=== PATIENT | female | born 1960 | race Two or more races ===

== ENCOUNTER 2020-08-24 07:18 | Emergency (ER) | payer OTHER, SELFPAY ==
[2020-08-24 07:25] VITALS: BP 161/81; PULSE 80; RESP 16; TEMP 36.8; O2SAT 99; BMI 31.8
--- NOTE | 2020-08-24 07:44 | XR_ITS ---
EXAMINATION: XR LUMBOSACRAL SPINE CLINICAL INFORMATION: Low back pain. COMPARISON: None TECHNIQUE: Three views of the lumbosacral spine. FINDINGS: There is normal lumbar lordosis. The vertebral heights, alignment and disc heights are normal. No visible acute fracture, dislocation or subluxation seen. No bony erosive changes. The soft tissues are normal. XR/XR lumbar spine 2-3V IMPRESSION: Unremarkable lumbar spine exam.
--- NOTE | 2020-08-24 07:44 | ED.GENADULT ---
HPI - General Adult General Chief complaint: Back Pain/Injury Stated complaint: low back pain Time Seen by Provider: 08/24/20 07:44 Source: patient Mode of arrival: ambulatory Limitations: no limitations History of Present Illness HPI narrative: had URI and headaches a week ago, now c/o low back pain and leg cramps for 2 days no trauma MD complaint: low back pain Onset (ago): day(s) (2) Location: back Radiation: abdomen (at times feels pressure in abdomen) Severity: moderate Quality: aching Pain Consistency: constant Relieving factors: none Exacerbating factors: movement Associated symptoms: denies other symptoms Treatments prior to arrival: none Related Data Previous Rx's Medication Instructions Recorded cyclobenzaprine 10 mg PO TID PRN #14 tab 08/24/20 ibuprofen 400 mg PO TID PRN #30 tab 08/24/20 lidocaine 1 patch TOPICAL DAILY PRN #10 ea 08/24/20 Allergies Allergy/AdvReac Type Severity Reaction Status Date / Time lisinopril Allergy Unknown Unverified 02/29/20 00:00 No Known Allergies Allergy Unverified 07/07/20 17:18 Review of Systems Review of Systems: Constitutional : No Weight loss, No Fever, No Chills, ENT/Mouth : No Hearing loss, No Ear Pain, No Nasal Congestion, No Sinus Pain, No Hoarseness, No sore throat, No Rhinorrhea, No Swallowing Difficulty Cardiovascular : No Chest Pain, No SOB Respiratory : No Cough, No Dyspnea Gastrointestinal : No Nausea, No Vomiting, No Diarrhea, No abdominal Pain, No Hematochezia, No Melena Genitourinary : No Dysuria, No Urinary Frequency, No Hematuria, No Urinary Incontinence, Musculoskeletal : positive back pain Skin : No Skin Lesions, No rash Neuro : No Weakness, No Numbness, No Paresthesias, no loss of bowel or bladder incontinence, no saddle anesthesia [facility] Past Medical History Medical History Corneal transplant infection of left eye HTN (hypertension) Surgical History Previous section Social History Social History (Updated 08/24/20 @ 07:47 by Lucía Mai DO) Alcohol intake: current Alcohol intake frequency: holidays/special occasions only Smoking Status: Never smoker Smoked in Last 30 Days: No Use of substances other than those prescribed or required for medical reasons: No Advance Directives: No Advance Directives Information Provided: Yes Physical Exam Vital Signs: Vital Signs: Vital Signs Temp Pulse Resp BP Pulse Ox 08/24/20 08:19 98.2 F 85 18 133/91 H 98 08/24/20 07:57 98.2 F 85 18 133/91 H 98 08/24/20 07:25 98.2 F 80 16 161/81 H 99 Body Mass Index 32.0 Appearance: Alert. Oriented X3. No acute distress. Eyes: Pupils equal, round and reactive to light. ENT: Pharynx normal. Neck: Normal inspection. Neck supple. CVS: Normal heart rate and rhythm. Pulses normal. Respiratory: No respiratory distress. Breath sounds normal. Abdomen: Soft and nontender. Back: ttp along bilateral sacrum and lower lumbar paraspinals, no rash noted Skin: Skin warm and dry. Normal skin color. Normal skin turgor. Extremities: No lower extremity edema. No calf ttp Neuro: Oriented X 3. No motor deficit. No sensory deficit. Course Course Course Narrative: no acute findings stable for DC Medical Decision Making MDM Narrative Medical decision making narrative: 59 yo female with recent URI and headaches that have resolved now coming in with low back pain and leg cramps, no AC therapy, no IVDA, now with lower back pain as well no trauma, no b/b incontinence, no saddle anesthesia, no CE symptoms, at this time will obtain basic labs, COVID swab, lumbar spine, PO MRs and lidocaine patches Lab Data Result diagrams: 08/24/20 08:14 08/24/20 08:14 Labs: Lab Results 08/24/20 08/24/20 Range/Units 08:14 08:14 Sodium 138 (135-145) mmol/L Potassium 3.7 (3.3-5.1) mmol/l Chloride 102 (96-108) mmol/L Carbon Dioxide 27 (22-29) mmol/L Anion Gap 13 (12-20) BUN 10 (9-16) mg/dL Creatinine 0.80 (0.5-1.4) mg/dL Estim Creat Clear Calc 77.7 Estimated GFR > 60 Random Glucose 114 (60-115) mg/dL Calcium 8.9 (8.4-10.2) mg/dL Magnesium 1.9 (1.6-2.6) mg/dL Urine Color YELLOW Urine Appearance HAZY Urine pH 6.0 (5.0-8.0) Ur Specific [place] 1.020 (1.005-1.025) Urine Protein TRACE (NEG-TRACE) MG/DL Urine Glucose (UA) NEG (NEG) MG/DL Urine Ketones NEG (NEG) MG/DL Urine Blood TRACE (NEG) Urine Nitrite NEG (NEG) Ur Leukocyte Esterase NEG (NEG) Urine RBC 1-4 (0) /HPF Urine WBC 0-2 (0-4) /HPF Ur Squamous Epith Cells 2+ /LPF Urine Bacteria NONE /LPF Urine Mucus 2+ /LPF Discharge Plan Discharge Clinical Impression: Strain of lumbar region Qualifiers: Encounter type: initial encounter Qualified Code(s): S39.012A - Strain of muscle, fascia and tendon of lower back, initial encounter Patient Disposition: Home, Self-Care Instructions: Acute Low Back Pain (ED) Additional Instructions: return to ED for any worsening symptoms or concerns you were tested for COVID we will call you with results in 2 to 4 days, wear a mask, socially distance Prescriptions: New cyclobenzaprine 10 mg tablet 10 mg PO TID PRN (Reason: muscle spasm) Qty: 14 RF: 0 lidocaine 4 % adhesive patch,medicated 1 patch topical DAILY PRN (Reason: pain) Qty: 10 RF: 0 ibuprofen 400 mg tablet 400 mg PO TID PRN (Reason: Pain, Moderate) Qty: 30 RF: 0 Referrals: Po,Cindi Delaney MD [Primary Care Provider] - 2 days (if not better) Stand Alone Forms: Work/School Release
[2020-08-24 07:57] VITALS: BP 133/91; PULSE 85; RESP 18; TEMP 36.8; O2SAT 98; BMI 32.0
[2020-08-24 08:19] VITALS: BP 133/91; PULSE 85; RESP 18; TEMP 36.8; O2SAT 98
--- NOTE | 2020-08-24 08:20 | PC.NURSE ---
PT CURRENTLY IN X RAY
[2020-08-24 08:25] LABS: Glucose Urine UA NEG (NEG); Leukocyte Esterase Urine NEG (NEG); Nitrite Urine NEG (NEG); Urine Blood TRACE (NEG); Urine Ketones NEG (NEG); Urine Protein TRACE MG/DL (NEG-TRACE)
[2020-08-24] MEDS: Cyclobenzaprine HCl 10 MG TABLET PO (08:27)
[2020-08-24] MEDS: Lidocaine 4 % Patch ADH..PATCH 2 PATCH TRANSDERMA (08:27)
[2020-08-24 08:32] LABS: Appearance Urine HAZY; Color Urine YELLOW
[2020-08-24 08:40] LABS: Mucus Urine 2+ /LPF; Squamous Epithelial Cell Urine 2+ /LPF; WBC Urine 0-2 /HPF (0-4)
[2020-08-24 08:44] LABS: Anion Gap 13 (12-20); Blood Urea Nitrogen 10 mg/dL (9-16); Calcium 8.9 mg/dL (8.4-10.2); Carbon Dioxide 27 mmol/L (22-29); Chloride 102 mmol/L (96-108); Creatinine Clr Calc Pharmacy 77.7; Estimated Glomerular Filt Rate > 60; Glucose Random 114 mg/dL (60-115); Magnesium 1.9 mg/dL (1.6-2.6); Potassium 3.7 mmol/l (3.3-5.1); Sodium 138 mmol/L (135-145)
== END 2020-08-24 09:11 | disposition home or self-care (01) ==
PROVIDERS: Emergency Provider Emergency Medicine; PCP Internal Medicine
DX: S39.012A Strain of muscle, fascia and tendon of lower back, initial encounter (principal); G47.62 Sleep related leg cramps; Y99.9 Unspecified external cause status; X58.XXXA Exposure to other specified factors, initial encounter; Y93.9 Activity, unspecified; Y92.9 Unspecified place or not applicable; R51.9 Headache, unspecified; Z20.828 Contact with and (suspected) exposure to other viral communicable diseases; Z79.899 Other long term (current) drug therapy
CPT/HCPCS: 72100; 80048; 81001; 83735; 99284; U0003

== ENCOUNTER 2021-02-21 08:15 | Outpatient (REF) | payer OTHER, SELFPAY | END 2021-02-21 08:16 | disposition home or self-care (01) | LOC: HO.HOSX 08:15 | PROVIDERS: Visit Provider Physician Assistant | DX: Z13.89 Encounter for screening for other disorder (principal) ==

== ENCOUNTER 2021-02-23 15:09 | Outpatient (REF) | payer OTHER, SELFPAY ==
--- NOTE | ~2021-02-23 | MM_ITS ---
EXAMINATION: MM SCREENING DIGITAL BREAST TOMOSYNTHESIS, BILATERAL CLINICAL INFORMATION: Screening. Asymptomatic. The lifetime risk of breast cancer based on the Tyrer-Cuzick Model is 7%. COMPARISON: Mammography: 11/26/2019, 10/17/2018, 09/18/2017, 07/27/2016 TECHNIQUE: Digital breast tomosynthesis is performed in both the craniocaudal and mediolateral oblique views along with computer-aided detection (CAD). Synthesized 2D images are generated from the tomosynthesis. FINDINGS: There are scattered areas of fibroglandular density (ACR BI-RADS breast composition Category b). The right breast is unremarkable. There is no developing density or interval mass or architectural abnormality. Neither breast shows abnormal calcifications. The axilla and skin contours are unremarkable. The left CC view has oval asymmetric density 10 cm from nipple posterior outer quadrant measuring approximately 7 x 4 mm. This may be related to incompletely compressed glandular tissue, summation artifact, or small cyst. Patient will be recalled for additional imaging. MM/MM tomosynthesis screening BI IMPRESSION: 1. Left: Asymmetric density posterior outer quadrant possibly incompletely compressed glandular tissue, summation artifact, or small cyst. 2. Right: No mammographic evidence of malignancy. ASSESSMENT: BI-RADS 0: Incomplete - Need Additional Imaging Evaluation RECOMMENDATION: 1. Additional views of the left breast (3-D spot CC, 3-D rolled CC x2). 2. Targeted ultrasound if warranted after review of the additional views. 3. Radiology department staff will contact the patient for additional imaging. This patient's information was entered into a reminder system with a target due date for their next mammogram.
== END 2021-02-23 15:10 | disposition home or self-care (01) ==
LOC: HO.MAMMO 15:09
PROVIDERS: Visit Provider Internal Medicine
DX: Z12.31 Encounter for screening mammogram for malignant neoplasm of breast (principal)
CPT/HCPCS: 77063; 77067

== ENCOUNTER 2021-02-28 07:42 | Outpatient (REF) | payer OTHER, SELFPAY ==
--- NOTE | ~2021-02-28 | XR_ITS ---
EXAMINATION: XR ANKLE, RIGHT CLINICAL INFORMATION: Right ankle pain. COMPARISON: None TECHNIQUE: AP, lateral, and mortise views of the right ankle. FINDINGS: The bones and soft tissues are normal. No fracture. Alignment is anatomic. Joint spaces are maintained. No joint effusion. XR/XR ankle RT min 3V IMPRESSION: Unremarkable right ankle exam.
== END 2021-02-28 07:43 | disposition home or self-care (01) ==
LOC: HO.HOSX 07:42
PROVIDERS: Visit Provider Physician Assistant
DX: M76.71 Peroneal tendinitis, right leg (principal)
CPT/HCPCS: 73610; 99202

== ENCOUNTER 2021-03-03 11:18 | Outpatient (REF) | payer OTHER, SELFPAY ==
--- NOTE | ~2021-03-03 | MM_ITS ---
EXAMINATION: MM DIAGNOSTIC DIGITAL BREAST TOMOSYNTHESIS, LEFT US BREAST TARGETED, LEFT CLINICAL INFORMATION: Nodule upper outer aspect left breast. COMPARISON: Mammography: 02/23/2021 and studies dating back to 06/24/2012 TECHNIQUE: Digital breast tomosynthesis is performed. 2-D images are generated from the tomosynthesis. The following views are obtained: Spot compression craniocaudal views as well as full-field craniocaudal medial and lateral rolled views. Targeted left breast ultrasound FINDINGS: There are scattered areas of fibroglandular density (ACR BI-RADS breast composition Category b). There is persistence of an approximately 7 x 3 mm circumscribed density about the upper outer aspect of the left breast. Targeted left breast ultrasound was performed. At the 3 o'clock position approximately 9 cm from nipple, there is a well-circumscribed hypoechoic lesion with increased through sound transmission consistent with a cyst. No internal vascularity is seen. The lesion is wider than it is tall. Results are provided to the patient at time of visit by the technologist. MM/MM tomosynthesis added views L IMPRESSION: Circumscribed density about the upper outer aspect of the left breast is seen to represent a cyst. ASSESSMENT: BI-RADS 2: Benign. RECOMMENDATION: Routine annual mammography screening due in 12 months. This patient's information was entered into a reminder system with a target due date for their next mammogram.
--- NOTE | ~2021-03-03 | US_ITS ---
EXAMINATION: US DIAGNOSTIC ULTRASOUND BREAST, LEFT CLINICAL INFORMATION: Density upper outer aspect. COMPARISON: Mammogram of same day and studies dating back to June 24, 2012. TECHNIQUE: Ultrasound of the breast is performed with real-time garcia scale imaging and color Doppler. FINDINGS: Targeted left breast ultrasound was performed. At the 3:00 position approximately 9 cm from nipple there is a well-circumscribed hypoechoic lesion which increased through sound transmission consistent with a cyst. No internal vascularity is seen. The lesion is wider than it is tall. Results are provided to the patient at time of visit by the technologist. US/US breast LT limited IMPRESSION: Circumscribed density about the upper outer aspect of the left breast is seen to represent a cyst. ASSESSMENT: BI-RADS 2: Benign RECOMMENDATION: Routine annual mammography screening due in 12 months.
== END 2021-03-03 11:19 | disposition home or self-care (01) ==
LOC: HO.MAMMO 11:18
PROVIDERS: Visit Provider Internal Medicine
DX: R92.2 Inconclusive mammogram (principal)
CPT/HCPCS: 76642; 77061; 77065

== ENCOUNTER 2021-03-14 07:48 | Outpatient (REF) | payer OTHER, SELFPAY ==
[2021-03-14 08:51] LABS: MANUAL DIFF FLAG NO
[2021-03-14 09:01] LABS: Basophils Percent Auto 0.3 % (0-2); Eosinophils Absolute Auto 0.1 X10*3/uL (0.0-0.4); Imm Gran Abs Auto 0.02 X10*3/uL (0.00-0.03); Imm Gran Pct Auto 0.3 % (0.0-0.4); Lymphocytes Absolute Auto 3.3 X10*3/uL (1.2-4.9); Lymphocytes Percent Auto 48.3 % (20-40); Mean Corpuscular HGB Conc 32.5 g/dl (31.0-35.0); Mean Corpuscular Hemoglobin 25.8 pg (27.0-33.0); Mean Corpuscular Volume 79.5 fL (80-98); Mean Platelet Volume 12.1 fL (9.4-12.3); Monocytes Absolute Auto 0.5 X10*3/uL (0.1-1.2); Monocytes Percent Auto 6.9 % (2-11); Neutrophils Absolute Auto 2.9 X10*3/uL (2.0-8.3); Neutrophils Percent Auto 42.2 % (45-73); Platelet Count 267 X10*3/uL (160-400); Red Blood Count 5.03 X10*6/uL (4.20-5.50); Red Cell Distribution Width 14.6 % (11.0-16.0); White Blood Count 6.9 X10*3/uL (4.8-10.8)
[2021-03-14 09:17] LABS: Alanine Aminotransferase 18 U/L (0-31); Albumin Level 4.1 g/dL (3.5-5.0); Alkaline Phosphatase 86 U/L (39-117); Anion Gap 12 (12-20); Aspartate Amino Transferase 21 U/L (5-31); Bilirubin Total 0.9 mg/dL (0.0-1.0); Blood Urea Nitrogen 14 mg/dL (9-16); Calcium 9.6 mg/dL (8.4-10.2); Carbon Dioxide 27 mmol/L (22-29); Chloride 103 mmol/L (96-108); Cholesterol 247 mg/dL; Estimated Glomerular Filt Rate > 60; Glucose Fasting 105 mg/dL (60-99); HDL Cholesterol 37 mg/dL; LDL Cholesterol Calculated 156 mg/dl; Potassium 4.4 mmol/L (3.3-5.1); Sodium 138 mmol/L (135-145); Total Protein 7.5 g/dL (6.5-8.0); Triglycerides 270 mg/dL
[2021-03-14 09:23] LABS: Free T4 (Free Thyroxine) 1.13 ng/dL (0.71-1.85); Thyroid Stimulating Hormone 1.12 uIU/mL (0.32-4.0); Vitamin D 25-OH Total 21.9 ng/mL (>30)
[2021-03-14 10:17] LABS: Folate 14.4 ng/mL (> or = 4.0); Vitamin B12 458 pg/mL (200-900)
== END 2021-03-14 07:49 | disposition home or self-care (01) ==
LOC: HO.LAB 07:48
PROVIDERS: Nurse Practitioner Family; PCP Internal Medicine; Visit Provider Internal Medicine
DX: E78.00 Pure hypercholesterolemia, unspecified (principal); U07.1 COVID-19
CPT/HCPCS: 36415; 80053; 80061; 82306; 82607; 82746; 84439; 84443; 85025

== ENCOUNTER 2021-05-20 12:01 | Emergency (ER) | payer OTHER, SELFPAY ==
--- NOTE | 2021-05-20 | ECG_ITS ---
Test Reason : CHEST PAIN Blood Pressure : / mmHG Vent. Rate : 088 BPM Atrial Rate : 088 BPM P-R Int : 148 ms QRS Dur : 080 ms QT Int : 382 ms P-R-T Axes : 027 -04 011 degrees QTc Int : 462 ms Sinus rhythm with marked sinus arrhythmia Nonspecific ST and T wave abnormality Borderline ECG When compared with ECG of 15-APR-2017 19:56, No significant change was found Referred By: Lucía Mai Electronically Signed By:NGOZI TEIXEIRA
--- NOTE | ~2021-05-20 | CT_ITS ---
EXAMINATION: CT HEAD WITHOUT CONTRAST CLINICAL INFORMATION: Dizziness. COMPARISON: CT of the head done on 04/15/2017. TECHNIQUE: Contiguous axial imaging was performed from the skull base to vertex without intravenous administration of contrast. This CT examination was performed using dose optimization techniques as appropriate, variously including the following: *Automated exposure control *Adjustment of mA and/or kV according to patient size (this includes techniques or standardized protocols for targeted exams where dose is matched to indication/reason for exam; i.e. extremities or head) *Use of iterative reconstruction technique DLP: 604.9 mGy-cm FINDINGS: There is no evidence of acute intracranial hemorrhage or territorial infarction. No abnormal mass effect or midline shift is seen. Hendricks to white matter differentiation is well preserved. No extra-axial fluid collections are identified. The ventricles are normal in size. There is no abnormal attenuation within the brain parenchyma. The osseous structures and soft tissues are normal. The mastoid air cells and visualized portions of the paranasal sinuses are well aerated. CT/CT head/brain wo con IMPRESSION: No acute intracranial pathology. No significant change since prior study dated 04/15/2017.
[2021-05-20 12:03] VITALS: BP 164/93; PULSE 99; RESP 17; TEMP 37.1; O2SAT 98; BMI 31.8
--- NOTE | 2021-05-20 12:30 | ED_ITS ---
HPI - Chest Pain General Chief Complaint: Chest Pain Stated Complaint: multiple complaints Time Seen by Provider: 05/20/21 12:30 Source: patient Mode of arrival: ambulatory Limitations: no limitations History of Present Illness HPI narrative: 60 yo female with hx of vertigo and HTN comes in with some mild dizziness when moving and L ear pain, also at 10am while cooking noted chest tighthness and nausea MD complaint: chest pain and other (L ear pain dizziness) Onset (ago): hour(s) (3) Timing of current episode: now resolved Prior episodes: Yes Onset: during rest Pain location: substernal Pain radiation: none Severity: mild Quality: tightness Relieving factors: nothing Exacerbating factors: nothing Context: other (was feeling nauseated with slight dizziness this AM) Associated symptoms: nausea Treatment prior to arrival: none Related Data Home Medications Medication Instructions Recorded Confirmed ibuprofen 800 mg tablet 800 mg PO Q8H PRN 02/28/21 03/23/21 Previous Rx's Medication Instructions Recorded hydrochlorothiazide 25 mg tablet 25 mg PO DAILY #90 tab 04/12/21 sertraline 25 mg tablet 25 mg PO DAILY 90 Days #90 tab 05/04/21 meclizine 25 mg tablet 25 mg PO TID PRN #30 tab 05/20/21 ondansetron 4 mg disintegrating 4 mg PO Q8H PRN #20 tab 05/20/21 tablet Allergies Allergy/AdvReac Type Severity Reaction Status Date / Time lisinopril AdvReac Intermediate Nausea Verified 05/20/21 12:03 Review of Systems Review of Systems: Constitutional : No Weight loss, No Fever, No Chills ENT/Mouth : No sore throat, No Rhinorrhea Eyes: No Eye Pain, No Swelling Cardiovascular : pos Chest Pain, no SOB, no Dyspnea on Exertion, No Orthopnea, No Edema, No Palpitations Respiratory : No Cough, No Sputum Gastrointestinal : pos Nausea, No Vomiting, No Diarrhea, No abdominal Pain, No Hematochezia, No Melena Genitourinary : No Dysuria, No Urinary Frequency Musculoskeletal : No joint pain, No Myalgias, No Joint Swelling Skin : No Skin Lesions, No rash Neuro : No Weakness, No Numbness, pos Dizziness, No Headache Psych : No Anxiety/Panic, No Depression Heme/Lymph: No Bruising, No Lymphadenopathy Endocrine : No Polyuria, No Polydipsia All other systems reviewed and are negative PMFSH Past Medical History Attestation statement: The following information was validated with the patient. Medical History Corneal transplant infection of left eye COVID-19 Depression with anxiety GERD (gastroesophageal reflux disease) HTN (hypertension) Hypercholesterolemia Hypertension Incisional hernia Left adnexal tenderness Obesity (BMI 30-39.9) Overactive bladder Seasonal allergies Vitamin D deficiency Surgical History History of corneal transplant History of tubal ligation Previous section Family History Family History Father Myocardial infarction Hypertension CVD (cardiovascular disease) Mother S/P CABG x 1 Diabetes Hypertension CVD (cardiovascular disease) Sister CVD (cerebrovascular disease) Brother Stroke Brain cancer Social History Social History Alcohol intake: current Alcohol intake frequency: holidays/special occasions only Patient Tobacco Use Status: Never used Tobacco Second Hand Smoke Exposure: No Advance Directives: No Advance Directives Information Provided: No Patient : No Physical Exam Vital Signs: Vital Signs: Last Vital Signs Temp 98.7 F 05/20/21 12:03 Pulse 91 05/20/21 15:23 Resp 16 05/20/21 15:23 BP 157/103 H 05/20/21 15:23 Pulse Ox 97 05/20/21 15:23 Body Mass Index 31.8 Appearance: Alert. Oriented X3. No acute distress. Eyes: Pupils equal, round and reactive to light. ENT: Pharynx normal. Neck: Normal inspection. Neck supple. CVS: Normal heart rate and rhythm. Pulses normal. Respiratory: No respiratory distress. Breath sounds normal. Abdomen: Soft and nontender. Skin: Skin warm and dry. Normal skin color. Normal skin turgor. Extremities: No lower extremity edema. No calf ttp Neuro: Oriented X 3. No motor deficit. No sensory deficit. CN 2-12 intact, no ataxia steady gait Course Course Course Narrative: repeat testing negative states symptoms went away, stable for DC MDM - Chest Pain MDM Narrative Medical decision making narrative: 60 yo female with hx of vertigo and HTN comes in with some mild dizziness when moving and L ear pain, also at 10am while cooking noted chest tighthness and nausea at this time on exam normal neuro exam, will obtain CT head dizziness started early this AM around 8 or so doubt posterior stroke, resolved chest pain at 10am but will obtain 2 troponins, no signs of hypoxia, not pleuritic, no signs of DVT at this time CT head for mass ordered, PO antivert, dispo per results and findings. Lab Data Result diagrams: 05/20/21 13:12 05/20/21 13:12 Labs: Lab Results 05/20/21 05/20/21 05/20/21 Range/Units 13:12 13:12 13:12 WBC 9.5 (4.8-10.8) X10*3/uL RBC 5.09 (4.20-5.50) X10*6/uL Hgb 13.3 (12.0-16.0) g/dl Hct 39.3 (37-47) % MCV 77.2 L (80-98) fL MCH 26.1 L (27.0-33.0) pg MCHC 33.8 (31.0-35.0) g/dl RDW 14.2 (11.0-16.0) % Plt Count 244 (160-400) X10*3/uL MPV 11.0 (9.4-12.3) fL Immature Gran % (Auto) 0.5 H (0.0-0.4) % Neut % (Auto) 70.6 (45-73) % Lymph % (Auto) 23.3 (20-40) % [place] % (Auto) 4.8 (2-11) % Eos % (Auto) 0.6 (0-4) % Baso % (Auto) 0.2 (0-2) % Lymph # (Auto) 2.2 (1.2-4.9) X10*3/uL [place] # (Auto) 0.5 (0.1-1.2) X10*3/uL Eos # (Auto) 0.1 (0.0-0.4) X10*3/uL Baso # (Auto) 0.0 (0.0-0.2) X10*3/uL Abs Immat Gran (auto) 0.05 H (0.00-0.03) X10*3/uL Absolute Neuts (auto) 6.7 (2.0-8.3) X10*3/uL Absolute Nucleated RBC 0.000 (0.0-0.012) X10*3/uL Nucleated RBC % (auto) 0.0 (0.0-0.2) /100WBC Sodium 141 (135-145) mmol/L Potassium 3.8 (3.3-5.1) mmol/L Chloride 104 (96-108) mmol/L Carbon Dioxide 26 (22-29) mmol/L Anion Gap 15 (12-20) BUN 13 (9-16) mg/dL Creatinine 0.86 (0.5-1.4) mg/dL Estim Creat Clear Calc 71.2 Estimated GFR > 60 Random Glucose 102 (60-115) mg/dL Calcium 9.8 (8.4-10.2) mg/dL Troponin I High Sens < 3.5 (<3.5-17.0) ng/L Urine Color Urine Appearance Urine pH (5.0-8.0) Ur Specific [place] (1.005-1.025) Urine Protein (NEG-TRACE) MG/DL Urine Glucose (UA) (NEG) MG/DL Urine Ketones (NEG) MG/DL Urine Blood (NEG) Urine Nitrite (NEG) Ur Leukocyte Esterase (NEG) 05/20/21 05/20/21 Range/Units 13:49 15:22 WBC (4.8-10.8) X10*3/uL RBC (4.20-5.50) X10*6/uL Hgb (12.0-16.0) g/dl Hct (37-47) % MCV (80-98) fL MCH (27.0-33.0) pg MCHC (31.0-35.0) g/dl RDW (11.0-16.0) % Plt Count (160-400) X10*3/uL MPV (9.4-12.3) fL Immature Gran % (Auto) (0.0-0.4) % Neut % (Auto) (45-73) % Lymph % (Auto) (20-40) % [place] % (Auto) (2-11) % Eos % (Auto) (0-4) % Baso % (Auto) (0-2) % Lymph # (Auto) (1.2-4.9) X10*3/uL [place] # (Auto) (0.1-1.2) X10*3/uL Eos # (Auto) (0.0-0.4) X10*3/uL Baso # (Auto) (0.0-0.2) X10*3/uL Abs Immat Gran (auto) (0.00-0.03) X10*3/uL Absolute Neuts (auto) (2.0-8.3) X10*3/uL Absolute Nucleated RBC (0.0-0.012) X10*3/uL Nucleated RBC % (auto) (0.0-0.2) /100WBC Sodium (135-145) mmol/L Potassium (3.3-5.1) mmol/L Chloride (96-108) mmol/L Carbon Dioxide (22-29) mmol/L Anion Gap (12-20) BUN (9-16) mg/dL Creatinine (0.5-1.4) mg/dL Estim Creat Clear Calc Estimated GFR Random Glucose (60-115) mg/dL Calcium (8.4-10.2) mg/dL Troponin I High Sens < 3.5 (<3.5-17.0) ng/L Urine Color YELLOW Urine Appearance CLEAR Urine pH 6.0 (5.0-8.0) Ur Specific [place] <= 1.005 (1.005-1.025) Urine Protein NEG (NEG-TRACE) MG/DL Urine Glucose (UA) NEG (NEG) MG/DL Urine Ketones NEG (NEG) MG/DL Urine Blood NEG (NEG) Urine Nitrite NEG (NEG) Ur Leukocyte Esterase NEG (NEG) ECG Data ECG #1: Attestation: I personally reviewed and interpreted this ECG as follows: ECG interpretation date: 05/20/21 ECG interpretation time: 12:36 Interpretation: Rate: 88 Rhythm: NSR [place]: left Normal P waves. Normal ANDREWS. Normal QRS complex. ST T wave : no GUS, nonspecific inf leads qTC: normal prior studies: no acute ischemia The study has been interpreted contemporaneously by me. . Discharge Plan Discharge Clinical Impression: Atypical chest pain, Dizziness Patient Disposition: Home, Self-Care Instructions: Chest Pain (ED), Dizziness (ED) Additional Instructions: return to ED for any worsening symptoms or concerns Prescriptions: New meclizine 25 mg tablet 25 mg PO TID PRN (Reason: dizziness) Qty: 30 RF: 0 ondansetron 4 mg tablet,disintegrating 4 mg PO Q8H PRN (Reason: nausea and vomiting) Qty: 20 RF: 0 No Action hydrochlorothiazide 25 mg tablet 25 mg PO DAILY Qty: 90 RF: 2 sertraline 25 mg tablet 25 mg PO DAILY 90 Days Qty: 90 RF: 1 ibuprofen 800 mg tablet 800 mg PO Q8H PRNRF: 0 Referrals: Po,Cindi Delaney MD [Primary Care Provider] - 2 days (if not better)
[2021-05-20 13:16] LABS: MANUAL DIFF FLAG NO
[2021-05-20 13:17] LABS: Basophils Percent Auto 0.2 % (0-2); Eosinophils Absolute Auto 0.1 X10*3/uL (0.0-0.4); Eosinophils Percent Auto 0.6 % (0-4); Hematocrit 39.3 % (37-47); Hemoglobin 13.3 g/dl (12.0-16.0); Imm Gran Abs Auto 0.05 X10*3/uL (0.00-0.03); Imm Gran Pct Auto 0.5 % (0.0-0.4); Lymphocytes Absolute Auto 2.2 X10*3/uL (1.2-4.9); Lymphocytes Percent Auto 23.3 % (20-40); Mean Corpuscular HGB Conc 33.8 g/dl (31.0-35.0); Mean Corpuscular Hemoglobin 26.1 pg (27.0-33.0); Mean Corpuscular Volume 77.2 fL (80-98); Monocytes Absolute Auto 0.5 X10*3/uL (0.1-1.2); Monocytes Percent Auto 4.8 % (2-11); Neutrophils Absolute Auto 6.7 X10*3/uL (2.0-8.3); Neutrophils Percent Auto 70.6 % (45-73); Platelet Count 244 X10*3/uL (160-400); Red Blood Count 5.09 X10*6/uL (4.20-5.50); Red Cell Distribution Width 14.2 % (11.0-16.0); White Blood Count 9.5 X10*3/uL (4.8-10.8)
[2021-05-20 13:39] LABS: Anion Gap 15 (12-20); Blood Urea Nitrogen 13 mg/dL (9-16); Calcium 9.8 mg/dL (8.4-10.2); Carbon Dioxide 26 mmol/L (22-29); Chloride 104 mmol/L (96-108); Creatinine Clr Calc Pharmacy 71.2; Estimated Glomerular Filt Rate > 60; Glucose Random 102 mg/dL (60-115); Potassium 3.8 mmol/L (3.3-5.1); Sodium 141 mmol/L (135-145)
[2021-05-20 13:43] LABS: Troponin-I High Sensitivity < 3.5 ng/L (<3.5-17.0)
[2021-05-20 14:10] LABS: Glucose Urine UA NEG (NEG); Leukocyte Esterase Urine NEG (NEG); Nitrite Urine NEG (NEG); Specific Gravity - Urine <= 1.005 (1.005-1.025); Urine Blood NEG (NEG); Urine Ketones NEG (NEG); Urine Protein NEG (NEG-TRACE)
[2021-05-20 14:12] LABS: Appearance Urine CLEAR; Color Urine YELLOW
[2021-05-20] MEDS: Meclizine HCl 25 MG TABLET PO (14:21)
[2021-05-20 15:23] VITALS: BP 157/103; PULSE 91; RESP 16; O2SAT 97
[2021-05-20 16:02] LABS: Troponin-I High Sensitivity < 3.5 ng/L (<3.5-17.0)
[2021-05-20 16:34] VITALS: BP 120/81; PULSE 78; RESP 16; O2SAT 98
== END 2021-05-20 16:38 | disposition home or self-care (01) ==
PROVIDERS: Emergency Provider Emergency Medicine; PCP Internal Medicine
DX: R07.89 Other chest pain (principal); R42 Dizziness and giddiness; I10 Essential (primary) hypertension
CPT/HCPCS: 36415; 70450; 80048; 81003; 84484; 85025; 93005; 96374; 99285; J2405

== ENCOUNTER 2021-05-22 14:47 | Outpatient (RCR) | payer OTHER, SELFPAY ==
--- NOTE | 2021-05-22 15:53 | MHC.PT.EP ---
[facility] [place] Office [place] Office [place] Office [address] Tavia Levine [address] [phone] F: [phone] F: [phone] F: [phone] F: [phone] Physical Therapy Plan of Care Date of Evaluation: Date of Surgery: N/A Diagnosis: peroneal tendinitis right leg Assessment: pt's signs and symptoms consistent w/ peroneal tendinopathy. pt presents to physical therapy with pain, decreased range of motion, decreased strength, impaired functional mobility, impaired postural awareness, and gait deviations. pt is a good candidate for skilled PT due to age, potential remediation of impairments, typical disease/condition progression and prognosis, comorbidities, and motivation. pt would benefit from tailored strengthening and stretching exercise program, functional training, gait training, postural re-training, neuromuscular re-education, modalities as needed for pain, equipment safety demonstration. Frequency and Duration: The patient will be seen 2x/wk for 4 wks Short Term Goals: pt will be I w/ HEP to promote self-management of condition. pt will improve R ankle DF by 10 degrees to normalize gait pattern on even ground. Halfway Goals: pt will report a statistically significant improvement in self-reported outcome measure, LEFI, to promote return to PLOF. pt will report <2/10 R ankle pain w/ ambulation >2500' to promote return to community ambulation levels. Treatment Plan: Modalities to reduce pain, spasms and effusion. Manual therapy to restore motion and function. Therapeutic exercise to improve strength and flexibility. Neuromuscular re-education for posture and balance. Therapeutic activities to return to functional activities of daily living. Electronically signed by: Tia Michele PT, DPT Please sign and return to therapist. Thank you for your referral.
--- NOTE | 2021-06-06 17:46 | MHC.PT.DC ---
[facility] [place] Office [place] Office [place] Office [address] [facility] [phone] F: [phone] F: [phone] F: [phone] F: [phone] Physical Therapy Discharge Report Diagnosis: peroneal tendinitis right leg Date of Surgery: N/A Date of Evaluation: 05/22/21 Date of Discharge: 06/06/21 Treatments to Date: 1 Cancellations to Date: 0 No Shows to Date: 4 Discharge Status: Visit Non-compliance Discharge Summary: Per [facility] Core Therapy policy the patient is to be discharged for visit non-compliance. She has not attended any visits since the initial evaluation. Current status is unknown. Electronically signed by: Tia Michele PT, DPT Please sign and return to therapist. Thank you for your referral.
== END 2021-06-06 17:46 | disposition home or self-care (01) ==
LOC: HO.PT 14:47
PROVIDERS: PCP Internal Medicine; Visit Provider Physician Assistant
DX: M76.71 Peroneal tendinitis, right leg (principal)
CPT/HCPCS: 97110; 97161

== ENCOUNTER 2021-09-22 07:11 | Outpatient (REF) | payer OTHER, SELFPAY ==
[2021-09-22 08:08] LABS: Estimated Average Glucose 114 mg/dL; Hemoglobin A1c % 5.6 %
[2021-09-22 08:35] LABS: Alanine Aminotransferase 17 U/L (0-31); Albumin Level 4.3 g/dL (3.5-5.0); Alkaline Phosphatase 91 U/L (39-117); Anion Gap 12 (12-20); Aspartate Amino Transferase 20 U/L (5-31); Bilirubin Total 0.6 mg/dL (0.0-1.0); Blood Urea Nitrogen 15 mg/dL (9-16); Calcium 10.1 mg/dL (8.4-10.2); Carbon Dioxide 29 mmol/L (22-29); Chloride 104 mmol/L (96-108); Cholesterol 245 mg/dL; Estimated Glomerular Filt Rate > 60; Glucose Random 119 mg/dL (60-115); HDL Cholesterol 35 mg/dL; LDL Cholesterol Calculated 157 mg/dl; Potassium 4.4 mmol/L (3.3-5.1); Sodium 141 mmol/L (135-145); Total Protein 7.8 g/dL (6.5-8.0); Triglycerides 268 mg/dL
== END 2021-09-22 07:12 | disposition home or self-care (01) ==
LOC: HO.LAB 07:11
PROVIDERS: PCP Internal Medicine; Visit Provider Internal Medicine
DX: R73.02 Impaired glucose tolerance (oral) (principal); E78.00 Pure hypercholesterolemia, unspecified; R10.30 Lower abdominal pain, unspecified; R79.89 Other specified abnormal findings of blood chemistry
CPT/HCPCS: 36415; 80053; 80061; 83036

== ENCOUNTER 2022-01-05 08:00 | Outpatient (REF) | payer OTHER, SELFPAY ==
--- NOTE | ~2022-01-05 | XR_ITS ---
EXAMINATION: XR AP BILATERAL KNEE STANDING XR LEFT KNEE CLINICAL INFORMATION: Pain in left knee. COMPARISON: None. TECHNIQUE: AP bilateral knee standing. Left knee 2 views. FINDINGS: AP bilateral knee: There is loss of medial compartment joint space with periarticular spurring in both knees. The lateral compartment joint space is maintained normal. There is minimal periarticular spurring lateral compartment left knee is noted. Left knee: There is moderate loss of patellofemoral compartment joint space with superior patellar spurring. There is no abnormal joint effusion. No acute fracture or dislocation seen. XR/XR knee LT 2V IMPRESSION: Tricompartment degenerative arthritic changes left knee without joint effusion. Mild degenerative changes medial compartment right knee.
--- NOTE | ~2022-01-05 | XR_ITS ---
EXAMINATION: XR AP BILATERAL KNEE STANDING XR LEFT KNEE CLINICAL INFORMATION: Pain in left knee. COMPARISON: None. TECHNIQUE: AP bilateral knee standing. Left knee 2 views. FINDINGS: AP bilateral knee: There is loss of medial compartment joint space with periarticular spurring in both knees. The lateral compartment joint space is maintained normal. There is minimal periarticular spurring lateral compartment left knee is noted. Left knee: There is moderate loss of patellofemoral compartment joint space with superior patellar spurring. There is no abnormal joint effusion. No acute fracture or dislocation seen. XR/XR knee standing BI IMPRESSION: Tricompartment degenerative arthritic changes left knee without joint effusion. Mild degenerative changes medial compartment right knee.
== END 2022-01-05 08:01 | disposition home or self-care (01) ==
LOC: HO.HOSX 08:00
PROVIDERS: Visit Provider Physician Assistant
DX: M17.12 Unilateral primary osteoarthritis, left knee (principal); M25.562 Pain in left knee; M25.561 Pain in right knee
CPT/HCPCS: 73560; 73565; 99202

== ENCOUNTER 2022-02-27 14:17 | Outpatient (REF) | payer OTHER, SELFPAY ==
--- NOTE | ~2022-02-27 | MM_ITS ---
EXAMINATION: MM SCREENING DIGITAL BREAST TOMOSYNTHESIS, BILATERAL CLINICAL INFORMATION: Screening. Asymptomatic. The lifetime risk of breast cancer based on the Tyrer-Cuzick Model is 6%. COMPARISON: Mammography: 03/03/2021, 02/23/2021, 11/26/2019, 10/17/2018; ultrasound left breast 03/03/2021 TECHNIQUE: Digital breast tomosynthesis is performed in both the craniocaudal and mediolateral oblique views along with computer-aided detection (CAD). Synthesized 2D images are generated from the tomosynthesis. FINDINGS: There are scattered areas of fibroglandular density (ACR BI-RADS breast composition Category b). Parenchymal pattern is similar to prior study. There is a stable focal asymmetric density posterior outer left breast corresponding to a cyst on targeted ultrasound. Neither breast shows interval mass or developing density or architectural abnormality. No abnormal calcifications. The axilla and skin contours are unremarkable. MM/MM tomosynthesis screening BI IMPRESSION: No significant changes from prior exam. ASSESSMENT: BI-RADS 2: Benign RECOMMENDATION: Routine annual mammography screening. This patient's information was entered into a reminder system with a target due date for their next mammogram.
== END 2022-02-27 14:18 | disposition home or self-care (01) ==
LOC: HO.MAMMO 14:17
PROVIDERS: PCP Internal Medicine; Visit Provider Internal Medicine
DX: Z12.31 Encounter for screening mammogram for malignant neoplasm of breast (principal)
CPT/HCPCS: 77063; 77067

== ENCOUNTER 2022-03-18 13:39 | Emergency (ER) | payer OTHER, SELFPAY ==
[2022-03-18 14:46] VITALS: BP 164/90; PULSE 75; RESP 18; TEMP 37.2; O2SAT 100; BMI 31.8
--- NOTE | 2022-03-18 14:50 | ECG_ITS ---
Test Reason : htn Blood Pressure : / mmHG Vent. Rate : 062 BPM Atrial Rate : 062 BPM P-R Int : 140 ms QRS Dur : 080 ms QT Int : 430 ms P-R-T Axes : 009 -08 002 degrees QTc Int : 436 ms Normal sinus rhythm with sinus arrhythmia Minimal voltage criteria for LVH, may be normal variant ( R in aVL ) Borderline ECG When compared with ECG of 20-MAY-2021 12:17, No significant change was found Referred By: Generic ED Physician Electronically Signed By:Sam Rodríguez
[2022-03-18 15:22] LABS: MANUAL DIFF FLAG NO
[2022-03-18 15:26] LABS: Basophils Percent Auto 0.2 % (0-2); Eosinophils Absolute Auto 0.1 X10*3/uL (0.0-0.4); Eosinophils Percent Auto 0.5 % (0-4); Hematocrit 41.9 % (37.0-47.0); Imm Gran Abs Auto 0.02 X10*3/uL (0.00-0.03); Imm Gran Pct Auto 0.2 % (0.0-0.4); Lymphocytes Absolute Auto 2.5 X10*3/uL (1.2-4.9); Lymphocytes Percent Auto 24.8 % (20-40); Mean Corpuscular HGB Conc 33.4 g/dl (31.0-35.0); Mean Corpuscular Volume 77.7 fL (80.0-98.0); Mean Platelet Volume 11.8 fL (9.4-12.3); Monocytes Absolute Auto 0.5 X10*3/uL (0.1-1.2); Monocytes Percent Auto 4.5 % (2-11); Neutrophils Absolute Auto 7.1 x10*3/uL (2.0-8.3); Neutrophils Percent Auto 69.8 % (45-73); Platelet Count 297 X10*3/uL (160-400); Red Blood Count 5.39 X10*6/uL (4.20-5.50); Red Cell Distribution Width 14.3 % (11.0-16.0); White Blood Count 10.2 X10*3/uL (4.8-10.8)
[2022-03-18 15:38] LABS: Alanine Aminotransferase 18 U/L (0-31); Albumin Level 4.5 g/dL (3.5-5.0); Alkaline Phosphatase 89 U/L (39-117); Anion Gap 14 (12-20); Aspartate Amino Transferase 20 U/L (5-31); Bilirubin Total 0.7 mg/dL (0.0-1.0); Blood Urea Nitrogen 10 mg/dL (9-16); Calcium 10.3 mg/dL (8.4-10.2); Carbon Dioxide 29 mmol/L (22-29); Chloride 102 mmol/L (96-108); Creatinine Clr Calc Pharmacy 74.7; Estimated Glomerular Filt Rate > 60; Glucose Random 101 mg/dL (60-115); Potassium 4.1 mmol/L (3.3-5.1); Sodium 141 mmol/L (135-145); Total Protein 8.1 g/dL (6.5-8.0)
[2022-03-18 15:44] LABS: Troponin-I High Sensitivity < 3.5 ng/L (<3.5-17.0)
[2022-03-18 17:50] VITALS: BP 161/87; PULSE 66; RESP 18; TEMP 36.8; O2SAT 97
--- NOTE | 2022-03-18 18:39 | ED_ITS ---
HPI - Neuro Symptoms/Deficit General Chief Complaint: Neuro Symptoms/Deficit Stated Complaint: HIGH BLOOD PRESS, FINGERS NUMB Time Seen by Provider: 03/18/22 17:57 History of Present Illness HPI Narrative: Patient is 61-year-old female presents today after not taking her blood pressure medication for at least 2 weeks. Check her blood pressure today noted to be 160/90. Patient presented back to the emergency department. Denies any fever chills denies any chest pain shortness of breath nausea vomiting have mild tingling sensation to the tip of her right thumb. There is no difficulty moving the finger there is no difficulty with speech is no facial weakness there is no difficulty ambulating there is no focal weakness the patient is from home. Was worried about her blood pressure presents to the ED. baseline she is on hydrochlorothiazide 25 mg once a day which she is taking. She is also on losartan 25 mg p.o. q.d. which she ran out of grade Related Data Previous Rx's Medication Instructions Recorded meclizine 25 mg tablet 25 mg PO TID PRN #30 tab 05/20/21 ondansetron 4 mg disintegrating 4 mg PO Q8H PRN #20 tab 05/20/21 tablet sertraline 50 mg tablet 50 mg PO DAILY 90 Days #90 tab 09/22/21 losartan 25 mg tablet 25 mg PO DAILY 30 Days #90 tab 12/19/21 simvastatin 5 mg tablet 5 mg PO BEDTIME 30 Days #90 tab 12/19/21 blood pressure monitor (Blood #1 ea 12/26/21 Pressure Kit) clotrimazole 1 % topical cream 1 appl TOPICAL BID 28 Days #45 g 12/26/21 naproxen 500 mg tablet 500 mg PO BID 30 Days #60 tab 01/05/22 hydrochlorothiazide 25 mg tablet 25 mg PO DAILY #90 tab 02/05/22 losartan 25 mg tablet 25 mg PO DAILY #30 tab 03/18/22 Allergies Allergy/AdvReac Type Severity Reaction Status Date / Time lisinopril AdvReac Intermediate Nausea Verified 03/18/22 14:46 Review of Systems Review of Systems: No chest pain or shortness of breath no nausea no vomiting no focal weakness Yes all other systems are reviewed and are negative Constitutional: Constitutional: Reports as per [facility] Past Medical History Medical History Annual physical exam Corneal transplant infection of left eye COVID-19 GERD (gastroesophageal reflux disease) HTN (hypertension) Hypercholesterolemia Hypertension Incisional hernia Left adnexal tenderness Obesity (BMI 30-39.9) Overactive bladder Seasonal allergies Vitamin D deficiency Surgical History History of corneal transplant History of salpingoophorectomy History of tubal ligation Previous section Family History Family History Father Myocardial infarction Hypertension CVD (cardiovascular disease) Mother S/P CABG x 1 Diabetes Hypertension CVD (cardiovascular disease) Sister CVD (cerebrovascular disease) Brother Stroke Brain cancer Social History Social History (Updated 01/05/22 @ 14:09 by ELLI Joiner) Housing: Apartment Alcohol intake: never Patient Tobacco Use Status: Never used Tobacco e-Cigarette/Vaping Use: Never Used Second Hand Smoke Exposure: No Current occupational status: employed 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 Oriented X3. No acute distress. Eyes: Pupils equal, round and reactive to light. ENT: Pharynx normal. Neck: Normal inspection. Neck supple. No lymph nodes noted. No crepitus CVS: Normal heart rate and rhythm. Pulses normal. Normal S1 and S2 Respiratory: No respiratory distress. Breath sounds normal. No Wheezing. No rales Abdomen: Soft and nontender. No rigidity. No distention. good BS x4 Skin: Skin warm and dry. Normal skin color. Normal skin turgor. Extremities: No lower extremity edema. Neurovascular intact to all extremities. No Lacerations. No Rash Neuro: Oriented X 3. No motor deficit. No sensory deficit. Moving all ext ermities. No slurred speech MDM - Neuro Symptoms/Deficit MDM Narrative Medical decision making narrative: Patient's EKG showed a sinus pattern heart rate was 80 [place] cares QT within normal limits as no acute ST segment elevation. Patient neurologically intact blood pressure 160/90. Reassured patient. Need for follow-up advised. Will refill patient's prescription for losartan. Patient states understanding will take her medicine will follow up on an outpatient basis. She is in stable condition with discharge home Medical Records Attestation: I reviewed the patient's medical records. Lab Data Attestation: I reviewed the patient's lab results. Result diagrams: 03/18/22 15:18 03/18/22 15:18 Labs: Lab Results 03/18/22 03/18/22 03/18/22 Range/Units 15:18 15:18 15:18 WBC 10.2 (4.8-10.8) X10*3/uL RBC 5.39 (4.20-5.50) X10*6/uL Hgb 14.0 (12.0-16.0) g/dl Hct 41.9 (37.0-47.0) % MCV 77.7 L (80.0-98.0) fL MCH 26.0 L (27.0-33.0) pg MCHC 33.4 (31.0-35.0) g/dl RDW 14.3 (11.0-16.0) % Plt Count 297 (160-400) X10*3/uL MPV 11.8 (9.4-12.3) fL Immature Gran % (Auto) 0.2 (0.0-0.4) % Neut % (Auto) 69.8 (45-73) % Lymph % (Auto) 24.8 (20-40) % Roberts % (Auto) 4.5 (2-11) % Eos % (Auto) 0.5 (0-4) % Baso % (Auto) 0.2 (0-2) % Lymph # (Auto) 2.5 (1.2-4.9) X10*3/uL Roberts # (Auto) 0.5 (0.1-1.2) X10*3/uL Eos # (Auto) 0.1 (0.0-0.4) X10*3/uL Baso # (Auto) 0.0 (0.0-0.2) X10*3/uL Abs Immat Gran (auto) 0.02 (0.00-0.03) X10*3/uL Absolute Neuts (auto) 7.1 (2.0-8.3) x10*3/uL Absolute Nucleated RBC 0.000 (0.0-0.012) X10*3/uL Nucleated RBC % (auto) 0.0 (0.0-0.2) /100WBC Sodium 141 (135-145) mmol/L Potassium 4.1 (3.3-5.1) mmol/L Chloride 102 (96-108) mmol/L Carbon Dioxide 29 (22-29) mmol/L Anion Gap 14 (12-20) BUN 10 (9-16) mg/dL Creatinine 0.81 (0.5-1.4) mg/dL Estim Creat Clear Calc 74.7 Estimated GFR > 60 Random Glucose 101 (60-115) mg/dL Calcium 10.3 H (8.4-10.2) mg/dL Total Bilirubin 0.7 (0.0-1.0) mg/dL AST 20 (5-31) U/L ALT 18 (0-31) U/L Alkaline Phosphatase 89 (39-117) U/L Troponin I High Sens < 3.5 (<3.5-17.0) ng/L Total Protein 8.1 H (6.5-8.0) g/dL Albumin 4.5 (3.5-5.0) g/dL Discharge Plan Discharge Clinical Impression: Hypertension Patient Disposition: Home, Self-Care Instructions: Hypertension (ED) Prescriptions: New losartan 25 mg tablet 25 mg PO DAILY Qty: 30 0RF No Action simvastatin 5 mg tablet 5 mg PO BEDTIME 30 Days Qty: 90 2RF losartan 25 mg tablet 25 mg PO DAILY 30 Days Qty: 90 2RF hydrochlorothiazide 25 mg tablet 25 mg PO DAILY Qty: 90 2RF meclizine 25 mg tablet 25 mg PO TID PRN (Reason: dizziness) Qty: 30 0RF ondansetron 4 mg tablet,disintegrating 4 mg PO Q8H PRN (Reason: nausea and vomiting) Qty: 20 0RF sertraline 50 mg tablet 50 mg PO DAILY 90 Days Qty: 90 1RF (DME) blood pressure monitor [Blood Pressure Kit] Kit See Rx Instructions .ROUTE .MEDSUPPLY Qty: 1 0RF Rx Instructions: As directed clotrimazole 1 % cream 1 appl topical BID 28 Days Qty: 45 0RF naproxen 500 mg tablet 500 mg PO BID 30 Days Qty: 60 3RF Referrals: Po,Cindi Delaney MD [Primary Care Provider] - (Blood pressure recheck in 2 days.)
== END 2022-03-18 19:16 | disposition home or self-care (01) ==
LOC: HO.ED 18:52
PROVIDERS: Emergency Provider Emergency Medicine Emergency Medical Services; PCP Internal Medicine
DX: I10 Essential (primary) hypertension (principal); R20.0 Anesthesia of skin; Z79.899 Other long term (current) drug therapy
CPT/HCPCS: 36415; 80053; 84484; 85025; 93005; 99282; 99283

== ENCOUNTER → 2022-05-17 10:15 | Outpatient (BNVA) | payer OTHER, SELFPAY | PROVIDERS: PCP Internal Medicine; Referring Provider Internal Medicine; Visit Provider Surgery | DX: Z12.11 Encounter for screening for malignant neoplasm of colon (principal) | CPT/HCPCS: 99202 ==

== ENCOUNTER → 2022-07-10 08:52 | Outpatient (BNVA) | payer OTHER, SELFPAY | PROVIDERS: PCP Internal Medicine; Visit Provider Physician Assistant | DX: G56.02 Carpal tunnel syndrome, left upper limb (principal) | CPT/HCPCS: 99202 ==

== ENCOUNTER 2022-08-08 08:37 | Outpatient (REF) | payer OTHER, SELFPAY ==
[2022-08-08 09:41] LABS: Estimated Average Glucose 111 mg/dL; Hemoglobin A1c % 5.5 %
[2022-08-08 10:05] LABS: Alanine Aminotransferase 16 U/L (0-31); Albumin Level 4.2 g/dL (3.5-5.0); Alkaline Phosphatase 83 U/L (39-117); Anion Gap 15 (12-20); Aspartate Amino Transferase 22 U/L (5-31); Bilirubin Total 0.7 mg/dL (0.0-1.0); Blood Urea Nitrogen 14 mg/dL (9-16); Calcium 9.9 mg/dL (8.4-10.2); Carbon Dioxide 30 mmol/L (22-29); Chloride 102 mmol/L (96-108); Cholesterol 226 mg/dL; Estimated Glomerular Filt Rate > 60; Glucose Random 109 mg/dL (60-115); HDL Cholesterol 38 mg/dL; LDL Cholesterol Calculated 158 mg/dl; Potassium 4.5 mmol/L (3.3-5.1); Sodium 142 mmol/L (135-145); Total Protein 7.4 g/dL (6.5-8.0); Triglycerides 150 mg/dL
== END 2022-08-08 08:38 | disposition home or self-care (01) ==
LOC: HO.LAB 08:37
PROVIDERS: PCP Internal Medicine; Visit Provider Internal Medicine
DX: E78.00 Pure hypercholesterolemia, unspecified (principal)
CPT/HCPCS: 36415; 80053; 80061; 83036

== ENCOUNTER 2022-08-09 09:50 | Day surgery (SDC) | payer OTHER, SELFPAY ==
[2022-08-09 10:35] VITALS: BP 170/77; PULSE 77; RESP 16; TEMP 36.8; O2SAT 100
[2022-08-09 10:36] VITALS: BMI 30.2
--- NOTE | 2022-08-09 10:46 | W.PM.OPN ---
Operative Note Operative Note Date of Service: 08/09/22 Narrative: Preop diagnosis: 1. left Carpal tunnel syndrome Postop diagnosis: same Procedure: 1. left Carpal tunnel release Surgeon: Selma Coronado MD Anesthesia: local block using 1% lidocaine with epinephrine Findings: Thickened transverse carpal ligament. EBL: Less than 5 mL Specimens: None Complications: None Disposition: Brought to recovery room in stable condition Plan: Follow-up for 10-14 days for wound check and suture removal Indications: The patient is 61 years old, with left carpal tunnel syndrome that has been unresponsive to nonoperative management. The risks and benefits of operative treatment including but not limited to risk of damage to blood vessels, nerves, tendons, infection, persistent pain, persistent symptoms, or possible need for additional surgery were discussed with the patient and the patient wishes to proceed with surgery. Procedure: Once consent was obtained a local block was performed using a combination of 1% lidocaine with epinephrine. The patient was then brought back to the operating suite and placed on the operative table in supine position. A tourniquet was applied to the proximal aspect of the left upper extremity and the limb was prepped and draped in a standard surgical fashion. Once assured that we had a good block, a 2.0 cm longitudinal incision was made centered over the carpal tunnel. The incision was made through the skin to the subcutaneous tissues using a #15 blade. Dissection was made down to the level of the transverse carpal ligament with care being taken to protect the palmar cutaneous nerve. Once the transverse carpal ligament was clearly visualized, a longitudinal incision was made in the transverse carpal ligament 1st using a #15 blade, then using tenotomy scissors under direct visualization. Care was taken to look for and protect the motor branch of the median nerve when seen in this area. Once satisfied with our carpal tunnel release the wound was copiously irrigated with normal saline and hemostasis was obtained with a brief period of local pressure. The skin edges were reapproximated with some 5.0 nylon suture material and a sterile dressing was applied. The patient appears to have tolerated the procedure well and with no complications. All digits were well vascularized at the conclusion of the case.
--- NOTE | 2022-08-09 11:26 | MHC.SHP ---
Pre-Procedural Eval Section A Date of Service: 08/09/22 The patient is an INPATIENT: No Changes since office visit: No Cold of Flu in the past 2 weeks, No New Medical Problems, No Changes in Medication and No Patient answered all questions The History & Physical has been completed within 30 days and I have reviewed it.: Yes Section B Chief Complaint: Carpal tunnel syndrome, left upper limb Allergies: Allergies Allergy/AdvReac Type Severity Reaction Status Date / Time lisinopril AdvReac Intermediate Nausea Verified 07/20/22 11:10 Plan I have reviewed the history and physical and performed a pertinent physical examination on my patient. No changes have occurred unless specified.
[2022-08-09 11:58] VITALS: BP 141/77; PULSE 74; RESP 16; TEMP 36.6; O2SAT 99
== END 2022-08-09 11:59 | disposition home or self-care (01) ==
PROVIDERS: PCP Internal Medicine; Visit Provider Orthopaedic Surgery
PROC: (CPT 64721; principal; 2022-08-09 15:20)
DX: G56.02 Carpal tunnel syndrome, left upper limb (principal); R20.0 Anesthesia of skin; R20.2 Paresthesia of skin; I10 Essential (primary) hypertension; E78.00 Pure hypercholesterolemia, unspecified; K21.9 Gastro-esophageal reflux disease without esophagitis; R73.02 Impaired glucose tolerance (oral); Z79.899 Other long term (current) drug therapy; Z88.8 Allergy status to other drugs, medicaments and biological substances; Z94.7 Corneal transplant status; Z86.16 Personal history of COVID-19
CPT/HCPCS: 64721; J0171

== ENCOUNTER 2022-08-31 07:24 | Day surgery (SDC) | payer OTHER, SELFPAY ==
[2022-08-27 12:00] VITALS: BMI 30.8
--- NOTE | 2022-08-29 12:06 | HO.ANESPROP2 ---
Documented by User: Gillian Ruelas NP 08/29/22 12:07 HPI - Anesthesia Eval Consult details Narrative: 61yo F for Colonoscopy PMFSH Active Problems Active Problems: All Active Problems (Updated 08/22/22 @ 14:42 by Pavan Donaldson) Carpal tunnel syndrome of right wrist (Acute) Annual physical exam (Acute) Left carpal tunnel syndrome (Acute) Colon cancer screening (Acute) Patellofemoral arthritis of left knee (Acute) Headache (Acute) Lower abdominal pain (Acute) Recurrent major depression (Acute) Preop exam for internal medicine (Acute) Impaired glucose tolerance (Acute) Peroneal tendinitis, right leg (Acute) Breast density (Acute) Ankle pain (Acute) Overactive bladder (Acute) Hypercholesterolemia (Acute) Hypertension (Acute) GERD (gastroesophageal reflux disease) (Acute) Obesity (BMI 30-39.9) (Acute) Left adnexal tenderness (Acute) COVID-19 (Acute) Past Medical History Medical History Annual physical exam Corneal transplant infection of left eye COVID-19 GERD (gastroesophageal reflux disease) HTN (hypertension) Hypercholesterolemia Hypertension Incisional hernia Left adnexal tenderness Obesity (BMI 30-39.9) Overactive bladder Seasonal allergies Vitamin D deficiency Family History Family History Father Myocardial infarction Hypertension CVD (cardiovascular disease) Mother S/P CABG x 1 Diabetes Hypertension CVD (cardiovascular disease) Sister CVD (cerebrovascular disease) Brother Stroke Brain cancer Surgical History Surgical History History of corneal transplant History of salpingoophorectomy History of tubal ligation Previous section Social History Social History Housing: Apartment Alcohol intake: never Patient Tobacco Use Status: Never used Tobacco e-Cigarette/Vaping Use: Never Used Second Hand Smoke Exposure: No Advance Directives: No Advance Directives Information Provided: Yes Current occupational status: employed 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 Rate : 062 BPM ? ? Atrial Rate : 062 BPM ?? P-R Int : 140 ms? QRS Dur : 080 ms ? ? QT Int : 430 ms ? ? ? P-R-T Axes : 009 -08 002 degrees ?? QTc Int : 436 ms ? Normal sinus rhythm with sinus arrhythmia Minimal voltage criteria for LVH, may be normal variant ( R in aVL ) Borderline ECG When compared with ECG of 20-MAY-2021 12:17, No significant change was found Assessment and Plan Assessment Anesthesia Assessment: Chart Reviewed Documented by User: Nataly Carvajal MD 08/31/22 08:39 [facility] Past Medical History Medical History Annual physical exam Corneal transplant infection of left eye COVID-19 GERD (gastroesophageal reflux disease) HTN (hypertension) Hypercholesterolemia Hypertension Incisional hernia Left adnexal tenderness Obesity (BMI 30-39.9) Overactive bladder Seasonal allergies Vitamin D deficiency Family History Family History Father Myocardial infarction Hypertension CVD (cardiovascular disease) Mother S/P CABG x 1 Diabetes Hypertension CVD (cardiovascular disease) Sister CVD (cerebrovascular disease) Brother Stroke Brain cancer Surgical History Surgical History History of corneal transplant History of salpingoophorectomy History of tubal ligation Previous section History of Problems with Anesthesia: No Social History Social History Housing: Apartment Alcohol intake: never Patient Tobacco Use Status: Never used Tobacco e-Cigarette/Vaping Use: Never Used Second Hand Smoke Exposure: No Advance Directives: No Advance Directives Information Provided: Yes Current occupational status: employed 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 Cognitive needs: No Hearing needs: No Vision needs: No Meds Allergies Allergy/AdvReac Type Severity Reaction Status Date / Time lisinopril AdvReac Intermediate Nausea Verified 08/22/22 14:47 Exam Airway Mallampati Class: II TM Dist: >3cm Neck ROM: Full Loose/Missing/Broken Teeth: No Heart: RRR Lungs: CTA Assessment and Plan Assessment Anesthesia Assessment: Anesthesia Plan Discussed Final Anesthetic Review History of Problems with Anesthesia: No NPO: Yes ASA Class: II Final Preanesthetic Review: Meds/Allgs Chart Reviewed, Consent Obtained/Reviewed and Anes Risks/Benef Reviewed Patient Risk: Low Procedure Risk: Low Anesthetic Plan Anesthetic Plan: MAC: Disposition: Standard PACU
[2022-08-31 07:52] VITALS: BP 138/86; PULSE 75; RESP 18; TEMP 37.1; O2SAT 98; BMI 30.2
[2022-08-31 08:04] VITALS: BMI 30.2
--- NOTE | 2022-08-31 08:09 | MHC.SHP ---
Pre-Procedural Eval Section A Date of Service: 08/31/22 Section B Chief Complaint: screening Details of Present Illness: For screening colonoscopy, denies GI complaints Relevant Social History: None Present Medications: see Short Stay Collaborative assessment Medical History: Significant History ( depression, hyperlipidemia, hypertension, obesity, GERD) History of Previous Operations: No relevant previous surgery Allergies: Allergies Allergy/AdvReac Type Severity Reaction Status Date / Time lisinopril AdvReac Intermediate Nausea Verified 08/22/22 14:47 Review of Systems Sugical H&P ROS: Negative: Constitution, Cardiovascular, Respiratory, Neurological, Psychiatric, Hem-Onc, Allergic/Immunologic, Gastrointestinal, Genitourinary, Musculoskeletal, Integumentary, Endocrine and Eyes/Ears/Nose/Throat Exam Surgical H&P Exam: Normal: HEENT, Normal: Heart, Normal: Lungs, Normal: Extremities, Normal: Abdomen, Normal: Skin and Normal: Neurological Plan Diagnosis/Plan: Unchanged I have reviewed the history and physical and performed a pertinent physical examination on my patient. No changes have occurred unless specified.
[2022-08-31] MEDS: Lactated Ringers 1,000 ML 100 ML IVCONT (08:14)
--- NOTE | 2022-08-31 08:49 | W.PM.OPN ---
Operative Note Operative Note Date of Service: 08/31/22 Narrative: Preop diagnosis: Colon cancer screening Postop diagnosis: small polyp, about 2-3 mm in the right colon removed with cold forceps Procedure: Colonoscopy with polypectomy using cold forceps Surgeon: Micky Navarro MD The patient is a 61-year-old female referred for screening colonoscopy. She understood the technique of the procedure. She was aware of the risks, benefits, and alternatives. The patient was brought to the operating room and placed in left lateral decubitus position under monitored anesthesia care. A surgical time-out was done. A full digital rectal exam was done and this did not reveal any significant anal lesions. The tip of the Olympus colonoscope was gently introduced through the anal orifice advanced with insufflation all the way to the cecum. The cecum was intubated. The cecum was identified by visualization of the ileocecal valve as well as the appendiceal orifice. The cecal mucosa was unremarkable. The scope was gradually withdrawn with careful examination of the entire colonic mucosa being done with scope withdrawal. The patient had good bowel prep so it was unlikely that any lesion may have been missed. In the midright colon was note of a small polyp about 2-3 mm in size. The was removed using multiple bites of cold forceps. We continued to withdraw the scope full examining the entire colonic mucosa.The rectum was reached and there were no lesions seen. The anal canal was unremarkable. The scope was then withdrawn completely with desufflation The patient tolerated procedure well. There were no immediate complications. Depending on her path report, her next colonoscopy may be in the next 10 years.
[2022-08-31 08:52] VITALS: BP 122/77; PULSE 76; RESP 18; TEMP 36.3; O2SAT 100
[2022-08-31 09:07] VITALS: BP 118/72; PULSE 72; RESP 16; O2SAT 97
[2022-08-31 09:22] VITALS: BP 134/82; PULSE 71; RESP 16; TEMP 36.3; O2SAT 97
== END 2022-08-31 09:35 | disposition home or self-care (01) ==
PROVIDERS: PCP Internal Medicine; Visit Provider Surgery
PROC: 0DJD8ZZ Inspection of Lower Intestinal Tract, Via Natural or Artificial Opening Endoscopic (ICD-10-PCS; CPT 45378; principal; 2022-08-31 09:30)
DX: Z12.11 Encounter for screening for malignant neoplasm of colon (principal); D12.2 Benign neoplasm of ascending colon; F32.A Depression, unspecified; E78.5 Hyperlipidemia, unspecified; I10 Essential (primary) hypertension; K21.9 Gastro-esophageal reflux disease without esophagitis; E78.00 Pure hypercholesterolemia, unspecified; E55.9 Vitamin D deficiency, unspecified; E66.9 Obesity, unspecified; Z68.30 Body mass index [BMI] 30.0-30.9, adult; Z94.7 Corneal transplant status; Z79.899 Other long term (current) drug therapy; Z88.8 Allergy status to other drugs, medicaments and biological substances
CPT/HCPCS: 45380; 88305

== ENCOUNTER 2022-12-17 08:25 | Outpatient (REF) | payer OTHER, SELFPAY ==
[2022-12-17 09:21] LABS: Alanine Aminotransferase 22 U/L (0-31); Alkaline Phosphatase 76 U/L (39-117); Anion Gap 12 (12-20); Aspartate Amino Transferase 23 U/L (5-31); Bilirubin Total 0.8 mg/dL (0.0-1.0); Blood Urea Nitrogen 17 mg/dL (9-16); Calcium 9.4 mg/dL (8.4-10.2); Carbon Dioxide 31 mmol/L (22-29); Chloride 106 mmol/L (96-108); Cholesterol 201 mg/dL; Estimated Glomerular Filt Rate > 60; Glucose Random 114 mg/dL (60-115); HDL Cholesterol 36 mg/dL; LDL Cholesterol Calculated 129 mg/dl; Potassium 4.5 mmol/L (3.3-5.1); Sodium 144 mmol/L (135-145); Total Protein 6.9 g/dL (6.5-8.0); Triglycerides 183 mg/dL
[2022-12-17 09:52] LABS: Folate 13.3 ng/mL (> or = 4.0); Free T4 (Free Thyroxine) 1.11 ng/dL (0.71-1.85); Thyroid Stimulating Hormone 2.99 uIU/mL (0.32-4.0); Vitamin B12 504 pg/mL (200-900)
== END 2022-12-17 08:26 | disposition home or self-care (01) ==
LOC: HO.LAB 08:25
PROVIDERS: PCP Internal Medicine; Visit Provider Internal Medicine
DX: E78.00 Pure hypercholesterolemia, unspecified (principal)
CPT/HCPCS: 36415; 80053; 80061; 82607; 82746; 84439; 84443

== ENCOUNTER 2023-01-09 09:32 | Outpatient (REF) | payer OTHER, SELFPAY | END 2023-01-09 09:33 | disposition home or self-care (01) | LOC: HO.MAMMO 09:32 | PROVIDERS: PCP Internal Medicine; Visit Provider Internal Medicine | DX: Z13.89 Encounter for screening for other disorder (principal) ==

== ENCOUNTER 2023-03-01 08:45 | Outpatient (REF) | payer OTHER, SELFPAY ==
--- NOTE | ~2023-03-01 | MM_ITS ---
EXAMINATION: MM SCREENING DIGITAL BREAST TOMOSYNTHESIS, BILATERAL CLINICAL INFORMATION: Screening. Asymptomatic. The lifetime risk of breast cancer based on the Tyrer-Cuzick Model is 6%. COMPARISON: Mammography: 02/27/2022, 03/03/2021, 02/23/2021, 02/24/2020; left breast ultrasound 03/03/2021 TECHNIQUE: Digital breast tomosynthesis is performed in both the craniocaudal and mediolateral oblique views along with computer-aided detection (CAD). Synthesized 2D images are generated from the tomosynthesis. FINDINGS: There are scattered areas of fibroglandular density (ACR BI-RADS breast composition Category b). There are no significant masses, abnormal calcifications, or other abnormalities. Small cyst outer left breast is decreased. No developing density or architectural abnormality. The axilla and skin contours are unremarkable. MM/MM tomosynthesis screening BI IMPRESSION: No mammographic evidence of malignancy. ASSESSMENT: BI-RADS 2: Benign RECOMMENDATION: Routine annual mammography screening. This patient's information was entered into a reminder system with a target due date for their next mammogram.
== END 2023-03-01 08:46 | disposition home or self-care (01) ==
LOC: HO.MAMMO 08:45
PROVIDERS: PCP Internal Medicine; Visit Provider Internal Medicine
DX: Z12.31 Encounter for screening mammogram for malignant neoplasm of breast (principal)
CPT/HCPCS: 77063; 77067

== ENCOUNTER 2023-08-27 09:34 | Outpatient (AMB) | payer OTHER, SELFPAY ==
[2023-08-27 10:11] VITALS: BP 128/72; PULSE 80; O2SAT 97; BMI 32.1
--- NOTE | 2023-08-27 10:11 | A.OFFPC_ITS ---
Vital Signs 08/27/23 10:11 Height 5 ft 3 in Weight 181 lb BMI 32.1 BP 128/72 Blood Pressure Location Lt brachial Position Sitting Pulse 80 Pulse Source Pulse Oximeter Pulse Oximetry (%) 97 Oxygen Delivery Method Room Air Intake Visit Reasons: physical Allergies lisinopril Adverse Reaction (Intermediate, Verified 08/27/23 10:12) Nausea Medication List - Last Reconciled 08/27/23 by Cindi Torres MD blood pressure monitor (Blood Pressure Kit) As directed cholecalciferol (vitamin D3) 50 mcg PO DAILY 90 days clotrimazole 1% 1 appl topical BID 4 weeks hydrochlorothiazide 25 mg PO DAILY losartan 50 mg PO DAILY meclizine 25 mg PO TID PRN naproxen 500 mg PO BID ondansetron 4 mg PO Q8H PRN sertraline 50 mg PO DAILY 90 days simvastatin 10 mg PO BEDTIME sodium,potassium,mag sulfates 17.5-3.13-1.6 gram (Suprep Bowel Prep Kit) DILUTE; drink full amount early evening before AND next morning at least 2 hr before procedure; follow w 32 oz. water PO Tobacco use date assessed: 01/15/23 Dental Screening Dental Screen Date: 08/27/23 Did you have a dental visit in the last 12 months?: Yes Did you have a dental problem in the last 6 months where you did not have access to dental care?: No Was dental information given to patient?: Patient has dentist HPI physical HPI Details 62-year-old obese female with GERD hyper tension hypercholesterolemia and impaired glucose tolerance recurrent major depression last seen in December 2022. Patient is here for physical exam. Colonoscopy is up-to-date mammograms up-to-date. occ L ear pain, no discharge. patient is going for citizenship and was tell me a that having a hard time with understanding things in that she might not pass the test. Patient is wanting evaluation for her memory peer [facility] Medical History (Updated 08/27/23 @ 11:06 by Cindi Torres MD) Colon cancer screening Annual physical exam Seasonal allergies Overactive bladder Hypercholesterolemia Hypertension GERD (gastroesophageal reflux disease) Incisional hernia Vitamin D deficiency Obesity (BMI 30-39.9) Left adnexal tenderness COVID-19 Corneal transplant infection of left eye HTN (hypertension) Surgical History History of salpingoophorectomy History of corneal transplant History of tubal ligation Previous section Family History (Updated 08/27/23 @ 10:12 by Sheri Rivera [facility]) Father Myocardial infarction Hypertension CVD (cardiovascular disease) Mother S/P CABG x 1 Diabetes Hypertension CVD (cardiovascular disease) Sister CVD (cerebrovascular disease) Brother Stroke Brain cancer Social History Housing: Apartment Alcohol intake: never Patient Tobacco Use Status: Never used Tobacco e-Cigarette/Vaping Use: Never Used Second Hand Smoke Exposure: No Current occupational status: employed Current occupation: [employer]/rt hand Cognitive needs: No Hearing needs: No Vision needs: No Questionnaire PHQ-9 Over the last 2 weeks, how often have you been bothered by any of the following problems? 1. Little interest or pleasure in doing things: several days 2. Feeling down, depressed, or hopeless: more than half the days 3. Trouble falling or staying asleep, or sleeping too much: several days 4. Feeling tired or having little energy: several days 5. Poor appetite or overeating: not at all 6. Feeling bad about yourself - or that you are a failure or have let yourself or your family down: several days 7. Trouble concentrating on things, such as reading the newspaper or watching television: several days 8. Moving or speaking so slowly that other people could have noticed. Or the opposite - being so fidgety or restless that you have been moving around a lot more than usual: several days 9. Thoughts that you would be better off or of hurting yourself in some way: not at all Total score: 8 Depression Screening Interpretation: Negative Depression Screening Done: Yes Source: Developed by Drs. Gabriel Estevez, Esthela Ritter, Wali Mayorga and colleagues, with an educational [place] from [employer]. Thrive Questionnaire Date Thrive assessed: 01/15/23 AUDIT C Alcohol Use Questionnaire (AUDIT-C) 1. How often do you have a drink containing alcohol?: Never 2. How many drinks containing alcohol do you have on a typical day when you are drinking?: 1 or 2 (0) 3. How often do you have six or more drinks on one occasion?: Never Total Score: 0 HALEIGH-7 AMB Questionnaire HALEIGH-7 Date HALEIGH - 7 assessed: 08/27/23 Feeling nervous, anxious, or on edge: 2 = More than half the days Not being able to stop or control worryin = More than half the days Worrying too much about different things: 2 = More than half the days Trouble relaxin = More than half the days Being so restless that it is hard to sit still: 1 = Several days Becoming easily annoyed or irritable: 1 = Several days Feeling afraid as if something awful might happen: 3 = Nearly every day Total HALEIGH-7 score (0-4 normal; 5-9 mild; 10-14 moderate; 15-21 severe): 13 Source: Developed by Drs. Gabriel Estevez, Esthela Ritter, Wali Mayorga and colleagues, with an educational [place] from [employer]. Review of Systems Const Denies poor appetite and Denies weakness Eyes Denies no additional complaints ENT Reports Normal hearing present, Denies dizziness, Denies nasal congestion, Denies tinnitus and Denies sore throat Card Denies chest pain, Denies syncope, Denies rapid heart rate and Denies dyspnea Resp Denies cough and Denies dyspnea GI Denies change in stool character, Reports constipation, Denies diarrhea, Denies nausea and Denies vomiting Denies urinary frequency, Denies difficulty voiding and Denies dysuria Neuro Reports Normal hearing present, Denies confusion, Denies dizziness, Denies syncope and Denies weakness Psych Denies confusion Physical exam (Primary Care) Vital Signs: Last Vital Signs Pulse 80 08/27/23 10:11 BP 128/72 08/27/23 10:11 Pulse Ox 97 08/27/23 10:11 Oxygen Delivery Method Room Air 08/27/23 10:11 BMI result Body Mass Index 32.1 Tobacco/Smoking Status: Tobacco use Status Tobacco use date assessed 01/15/23 08/27/23 10:18 Patient Tobacco Use Status Never used Tobacco 08/27/23 10:18 e-Cigarette/Vaping Use Never Used 08/27/23 10:18 PHQ-9: PHQ-9 Score PHQ-9: Total score 8 08/27/23 10:18 Depression Screening Interpretation: Negative Thrive Assessment: Date of Thrive Assessment Date Thrive assessed 01/15/23 08/27/23 10:18 Const General: alert and awake; No confusion Orientation/consciousness: No confusion HENMT Head: Yes normocephalic Ears: external ears normal and TM's normal bilaterally Face and sinus: Yes normal facial exam Mouth: moist mucous membranes Throat: Yes tonsils normal Eyes Conjunctivae: conjunctivae normal Pupils: Equal, round and reactive pupils present and Pupil accommodation reflex normal Direct Ophthalmoscopy: normal light reflex Neck Neck: No lymphadenopathy Thyroid: Thyroid normal Chest Chest palpation & inspection: normal inspection of the chest Resp Effort & Inspection: normal respiratory effort and no audible wheezes Auscultation: clear to auscultation bilaterally, no crackles, no wheezes and lung sounds not diminished Cardio Rate: regular rate Rhythm: regular rhythm Peripheral pulses: radial pulses present and dorsalis pedis present GI Palpation (GI): no masses Auscultation: normal bowel sounds and normoactive bowel sounds Rectal Exam - Female: deferred Skin General skin exam: no rashes or lesions noted Rashes: no rashes Neuro General: deep tendon reflexes 2+ bilaterally and No confusion Cranial nerves: Yes Equal, round and reactive pupils present, Yes Midline tongue present, Yes Normal hearing present and Yes Ability to bilaterally elevate shoulders present Cognition (Neuro): normal cognition Gait exam (Neuro): Normal gait present Motor exam (neuro): 5/5 motor strength present throughout Deep tendon reflexes (DTR's): Right brachioradialis reflex intensity grade: 2+, Left brachioradialis reflex intensity grade: 2+, Right patellar reflex intensity grade: 2+ and Left patellar reflex intensity grade: 2+ Extrem General: No edema Assessment and Plan Assessment & Plan (1) Annual physical exam: Code(s): Z00.00 - Encounter for general adult medical examination without abnormal findings (2) Obesity (BMI 30-39.9): Code(s): E66.9 - Obesity, unspecified Plan: Diet and exercise (3) GERD (gastroesophageal reflux disease): Code(s): K21.9 - Gastro-esophageal reflux disease without esophagitis Qualifiers: Esophagitis presence: without esophagitis Qualified Code(s): K21.9 - Gastro-esophageal reflux disease without esophagitis (4) Hypertension: Code(s): I10 - Essential (primary) hypertension Plan: Continue with blood pressure medication. Decrease salt intake and exercise patient takes losartan 25 mg once a day hydrochlorothiazide 25 mg once a day (5) Hypercholesterolemia: Code(s): E78.00 - Pure hypercholesterolemia, unspecified Plan: Avoid fried foods, chicken skin, eggs, butter margarine, pastries and meat. Be it pork or beef they have a lot of cholesterol LDL goal of less than 130 and triglyceride of less than 150 (6) Hair loss: Code(s): L65.9 - Nonscarring hair loss, unspecified Plan: blood work advised (7) Enlarged thyroid: Code(s): E04.9 - Nontoxic goiter, unspecified Plan: US requested (8) Recurrent major depression: Comment: [facility] Code(s): F33.9 - Major depressive disorder, recurrent, unspecified Plan: continue with couselling and therapy (9) Cognitive complaints: Code(s): R41.9 - Unspecified symptoms and signs involving cognitive functions and awareness Orders: Orders Complete Blood Count Auto Diff 2 Months L65.9 - Nonscarring hair loss, unspecified Free T4 (Free Thyroxine) 2 Months L65.9 - Nonscarring hair loss, unspecified Thyroid Stimulating Hormone 2 Months L65.9 - Nonscarring hair loss, unspecified US thyroid Today E04.9 - Nontoxic goiter, unspecified Erythrocyte Sedimentation Rate 2 Months L65.9 - Nonscarring hair loss, unspecified C Reactive Protein 2 Months L65.9 - Nonscarring hair loss, unspecified Comprehensive Met. Panel 2 Months L65.9 - Nonscarring hair loss, unspecified Vitamin B12 and Folate 2 Months L65.9 - Nonscarring hair loss, unspecified Vitamin D 25-OH Total 2 Months L65.9 - Nonscarring hair loss, unspecified Lipid Panel 2 Months E78.00 - Pure hypercholesterolemia, unspecified, L65.9 - Nonscarring hair loss, unspecified Referrals Neuropsychiatry Referral R41.9 - Unspecified symptoms and signs involving cognitive functions and awareness Medications: New losartan 25 mg PO DAILY 90 tabs 0RF I10 - Essential (primary) hypertension Coding Level of Care Code Est Pt Prev Care 40-64y(19145) Diagnoses Annual physical exam Z00.00 Obesity (BMI 30-39.9) E66.9 Gastroesophageal reflux disease without esophagitis K21.9 Esophagitis presence: without esophagitis Essential hypertension I10 Hypercholesterolemia E78.00 Hair loss L65.9 Enlarged thyroid E04.9 Recurrent major depression F33.9 Cognitive complaints R41.9 Additional Codes PHQ-9 - 22809 - PHQ-9 Billing: ([id number])
== END 2023-08-27 11:18 | disposition home or self-care (01) ==
PROVIDERS: Visit Provider Internal Medicine
DX: Z23 Encounter for immunization (principal); Z00.00 Encounter for general adult medical examination without abnormal findings; E66.9 Obesity, unspecified; Z68.32 Body mass index [BMI] 32.0-32.9, adult; F33.9 Major depressive disorder, recurrent, unspecified
CPT/HCPCS: 90471; 90686; 99396

== ENCOUNTER 2023-09-30 10:24 | Outpatient (REF) | payer OTHER, SELFPAY ==
--- NOTE | ~2023-09-30 | US_ITS ---
EXAMINATION: US THYROID CLINICAL INFORMATION: Nontoxic goiter, unspecified. COMPARISON: None available. TECHNIQUE: Linear transducer garcia-scale and color Doppler examination with attention to the region of the thyroid. FINDINGS: SIZE: Measurements of the thyroid lobes and nodules are given in sagittal, anteroposterior and transverse dimensions respectively. Right Thyroid Lobe: 4.8 x 1.1 x 1.6 cm, volume 4.4 mL. Parenchyma: The gland echotexture is homogeneous. Thyroid vascularity is normal. Left Thyroid Lobe: 4.5 x 1.0 x 1.2 cm, volume 2.8 mL. Parenchyma: The gland echotexture is homogeneous. Thyroid vascularity is normal. Isthmus: 0.3 cm in maximum AP dimension. Estimated total number of nodules greater than or equal to 1 cm: 1. Patient Accounts Specialist nodules are described as follows: 1. Location: Right mid pole. Size: 0.8 x 0.5 x 1.1 cm, volume 0.2 mL. Nodule characteristics: Composition: Solid (2). Echogenicity: Very hypoechoic (3). Shape: Not taller than wide (0). Margins: Smooth (0). Echogenic Foci: None (0). ACR TI-RADS total points: 5 ACR TI-RADS category: 4 NODES: No lymphadenopathy is seen in the tissue surrounding the thyroid gland. US/US thyroid IMPRESSION: A 1.1 cm TR4 right thyroid nodule. Recommend followup ultrasound in 12 months. ACR TI-RADS RECOMMENDATION REFERENCE: Ultrasound-guided fine-needle aspiration, followup ultrasound, no further follow up. * TR1 (0 point) and TR2 (2 points): No FNA or follow up. * TR3 (3 points): FNA if more than or equal to 2.5 cm in maximum dimension, followup ultrasound in 1, 3 and 5 years if 1.5 to 2.4 cm in maximum dimension. * TR4 (4-6 points): FNA if more than or equal to 1.5 cm in maximum dimension, followup ultrasound in 1, 2, 3 and 5 years if 1 to 1.4 cm in maximum dimension. * TR5 (more than or equal to 7 points): FNA if more than or equal to 1 cm in maximum dimension, followup ultrasound every year for 5 years if 0.5 to 0.9 cm in maximum dimension. * TR3, TR4 or TR5 nodules that are below the size threshold for followup receive no follow up.
== END 2023-09-30 10:25 | disposition home or self-care (01) ==
LOC: HO.US 10:24
PROVIDERS: PCP Internal Medicine; Visit Provider Internal Medicine
DX: E04.9 Nontoxic goiter, unspecified (principal)
CPT/HCPCS: 76536

== ENCOUNTER 2023-12-02 08:48 | Outpatient (REF) | payer OTHER, SELFPAY ==
[2023-12-02 09:09] LABS: MANUAL DIFF FLAG NO
[2023-12-02 09:18] LABS: Basophils Percent Auto 0.4 % (0-2); Eosinophils Absolute Auto 0.3 X10*3/uL (0.0-0.4); Eosinophils Percent Auto 4.3 % (0-4); Hemoglobin 13.3 g/dl (12.0-16.0); Imm Gran Abs Auto 0.01 X10*3/uL (0.00-0.03); Imm Gran Pct Auto 0.1 % (0.0-0.4); Lymphocytes Absolute Auto 2.6 X10*3/uL (1.2-4.9); Lymphocytes Percent Auto 34.5 % (20-40); Mean Corpuscular HGB Conc 33.3 g/dl (31.0-35.0); Mean Corpuscular Hemoglobin 26.3 pg (27.0-33.0); Mean Corpuscular Volume 79.2 fL (80.0-98.0); Mean Platelet Volume 11.5 fL (9.4-12.3); Monocytes Absolute Auto 0.6 X10*3/uL (0.1-1.2); Monocytes Percent Auto 8.2 % (2-11); Neutrophils Absolute Auto 3.9 x10*3/uL (2.0-8.3); Neutrophils Percent Auto 52.5 % (45-73); Platelet Count 261 X10*3/uL (160-400); Red Blood Count 5.05 X10*6/uL (4.20-5.50); Red Cell Distribution Width 14.4 % (11.0-16.0); White Blood Count 7.4 X10*3/uL (4.8-10.8)
[2023-12-02 10:02] LABS: Erythrocyte Sedimentation Rate 22 MM/HR (0-20)
[2023-12-02 10:26] LABS: Alanine Aminotransferase 16 U/L (0-31); Albumin Level 3.9 g/dL (3.5-5.0); Alkaline Phosphatase 76 U/L (39-117); Anion Gap 10 (12-20); Aspartate Amino Transferase 18 U/L (5-31); Bilirubin Total 0.4 mg/dL (0.0-1.0); Blood Urea Nitrogen 9 mg/dL (9-16); C Reactive Protein 0.91 mg/dL (< or = 0.50); Carbon Dioxide 26 mmol/L (22-29); Chloride 111 mmol/L (96-108); Cholesterol 235 mg/dL (<200); Estimated Glomerular Filt Rate > 60; Glucose Random 113 mg/dL (60-115); HDL Cholesterol 32 mg/dL (>40); LDL Cholesterol Calculated 165 mg/dL (<100); Potassium 4.3 mmol/L (3.3-5.1); Sodium 143 mmol/L (135-145); Total Protein 7.5 g/dL (6.5-8.0); Triglycerides 193 mg/dL (<150)
[2023-12-02 10:36] LABS: Free T4 (Free Thyroxine) 0.88 ng/dL (0.71-1.85); Thyroid Stimulating Hormone 2.03 uIU/mL (0.32-4.0)
[2023-12-02 10:45] LABS: Folate 13.2 ng/mL (> or = 4.0); Vitamin B12 500 pg/mL (200-900)
== END 2023-12-02 08:49 | disposition home or self-care (01) ==
LOC: HO.LAB 08:48
PROVIDERS: PCP Internal Medicine; Visit Provider Internal Medicine
DX: L65.9 Nonscarring hair loss, unspecified (principal); E78.00 Pure hypercholesterolemia, unspecified
CPT/HCPCS: 36415; 80053; 80061; 82306; 82607; 82746; 84439; 84443; 85025; 85652; 86140

== ENCOUNTER 2023-12-03 08:34 | Outpatient (AMB) | payer OTHER, SELFPAY ==
--- NOTE | 2023-12-03 08:38 | MHC.PC.OV ---
Vital Signs 12/03/23 08:39 Height 5 ft 3 in Weight 181 lb BMI 32.1 BP 128/80 Blood Pressure Location Lt brachial Position Sitting Pulse 74 Pulse Source Pulse Oximeter Pulse Oximetry (%) 99 Oxygen Delivery Method Room Air Intake Visit Reasons: hair loss,HTN , cholesterol Condenser Operator Required: No Allergies lisinopril Adverse Reaction (Intermediate, Verified 12/03/23 08:40) Nausea Medication List - Last Reconciled 12/03/23 by Cindi Torres MD blood pressure monitor (Blood Pressure Kit) As directed cholecalciferol (vitamin D3) 50 mcg PO DAILY 90 days clotrimazole 1% 1 appl topical BID 4 weeks hydrochlorothiazide 25 mg PO DAILY losartan 25 mg PO DAILY meclizine 25 mg PO TID PRN naproxen 500 mg PO BID sertraline 50 mg PO DAILY 90 days simvastatin 10 mg PO BEDTIME Tobacco use date assessed: 12/03/23 Dental Screening Dental Screen Date: 12/03/23 HPI hair loss,HTN , cholesterol HPI Details 63-year-old obese female with hypertension hypercholesterolemia recurrent major depression coming in for follow-up. August 2023 last seen concern about hair loss and enlarged thyroid so an ultrasound and blood work requested. Patient is colonoscopy August 2022 up-to-date with mammogram ultrasound of the thyroid has 1 cm thyroid nodule right and has been advised to follow-up in 1 year. This was done in September 2023. chills and nasal congestion , with muscle aches, concern patient admits to forgetting to take the cholesterol medication. Also was asking for the [facility] memory clinic for the cognitive problems that she is having. [facility] Medical History (Updated 12/03/23 @ 09:12 by Cindi Torres MD) Enlarged thyroid Colon cancer screening Annual physical exam Seasonal allergies Overactive bladder Hypercholesterolemia Hypertension GERD (gastroesophageal reflux disease) Incisional hernia Vitamin D deficiency Obesity (BMI 30-39.9) Left adnexal tenderness COVID-19 Corneal transplant infection of left eye HTN (hypertension) Surgical History History of salpingoophorectomy History of corneal transplant History of tubal ligation Previous section Family History (Updated 08/27/23 @ 10:12 by Sheri Rivera CMA) Father Myocardial infarction Hypertension CVD (cardiovascular disease) Mother S/P CABG x 1 Diabetes Hypertension CVD (cardiovascular disease) Sister CVD (cerebrovascular disease) Brother Stroke Brain cancer Social History Housing: Apartment Alcohol intake: never Patient Tobacco Use Status: Never used Tobacco e-Cigarette/Vaping Use: Never Used Second Hand Smoke Exposure: No Current occupational status: employed 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 Cognitive needs: No Hearing needs: No Vision needs: No Questionnaire Thrive Questionnaire Date Thrive assessed: 12/03/23 I am a: Patient What is your living situation today?: I have a steady place to live Within the past 12 months, did the food you bought not last and you didn't have the money to get more?: Never true Within the past 12 months, did you worry whether your food would run out before you got money to buy more?: Never true Do you have trouble paying for medicines?: No Do you have trouble getting transportation to medical appointments?: No Do you have trouble paying your heating and electricity bill?: No Do you have trouble taking care of your child, family member or friend?: No Do you have trouble with day-to-day activities such as bathing, preparing meals, shopping, managing finances, etc.?: No Are you currently unemployed and looking for a job?: No Are you interested in more education?: No Please select the resources that you would like help with: None THRIVE Score: 0 AUDIT C Alcohol Use Questionnaire (AUDIT-C) 1. How often do you have a drink containing alcohol?: Never 2. How many drinks containing alcohol do you have on a typical day when you are drinking?: 1 or 2 (0) 3. How often do you have six or more drinks on one occasion?: Never Total Score: 0 HALEIGH-7 AMB Questionnaire HALEIGH-7 Date HALEIGH - 7 assessed: 12/03/23 Source: Developed by Drs. Gabriel Estevez, Esthela Ritter, Wali Mayorga and colleagues, with an educational [place] from [employer]. Physical exam (Primary Care) Vital Signs: Last Vital Signs Pulse 74 12/03/23 08:39 BP 128/80 12/03/23 08:39 Pulse Ox 99 12/03/23 08:39 Oxygen Delivery Method Room Air 12/03/23 08:39 BMI result Body Mass Index 32.1 Tobacco/Smoking Status: Tobacco use Status Tobacco use date assessed 12/03/23 12/03/23 08:45 Patient Tobacco Use Status Never used Tobacco 12/03/23 08:38 e-Cigarette/Vaping Use Never Used 12/03/23 08:38 Thrive Assessment: Date of Thrive Assessment Date Thrive assessed 12/03/23 12/03/23 08:45 Const General: alert; No acute distress Eyes Conjunctivae: conjunctivae normal Resp Auscultation: clear to auscultation bilaterally Cardio Rate: regular rate Rhythm: regular rhythm GI Inspection: Yes normal to inspection Extrem General: Yes normal to inspection and No edema Assessment and Plan Assessment & Plan (1) Right thyroid nodule: Comment: September 2023 1.1 cm TR4 right thyroid nodule. Recommend followup ultrasound in 12 months. Code(s): E04.1 - Nontoxic single thyroid nodule Plan: September 2023 ultrasound showing a 1 cm right thyroid nodule advised follow-up in 1 year (2) Hair loss: Code(s): L65.9 - Nonscarring hair loss, unspecified Plan: Workup has been negative for cause of hair loss. Patient states getting a little bit better and would call if wants referral to dermatology. (3) Obesity (BMI 30-39.9): Code(s): E66.9 - Obesity, unspecified Plan: Diet and exercise (4) GERD (gastroesophageal reflux disease): Code(s): K21.9 - Gastro-esophageal reflux disease without esophagitis Qualifiers: Esophagitis presence: without esophagitis Qualified Code(s): K21.9 - Gastro-esophageal reflux disease without esophagitis Plan: Avoid the foods that causes that usually spicy foods, tomato products, juices, coffee, soda and foods that your sensitive to. After eating do not lie down, allow 3-4 hours before in lie down. And keep the head of bed above 30 degrees to avoid the acid from going up. (5) Hypertension: Code(s): I10 - Essential (primary) hypertension Plan: Continue with blood pressure medication. Decrease salt intake and exercise patient is on losartan 25 mg once a day hydrochlorothiazide 25 mg once a day (6) Hypercholesterolemia: Code(s): E78.00 - Pure hypercholesterolemia, unspecified Plan: Avoid fried foods, chicken skin, eggs, butter margarine, pastries and meat. Be it pork or beef they have a lot of cholesterol LDL goal of less than 130 and triglyceride of less than 150. Patient on simvastatin 10 mg. Patient admits to forgetting to take the medication hands the blood work showing increase in cholesterol (7) Nasal congestion: Code(s): R09.81 - Nasal congestion Plan: Will test for COVID-19 infection but advised to take Tylenol for chills and Flonase nasal spray sent in for congestion. (8) Impaired glucose tolerance: Code(s): R73.02 - Impaired glucose tolerance (oral) Plan: Decrease the amount of carbohydrate intake, pasta, bread, rice and potatoes are all sugar and that is aside from all the sweet stuff, remember that fruits are good but they are Sweet also. Orders: Orders Hemoglobin A1c 3 Months R73.02 - Impaired glucose tolerance (oral) SARS-CoV2/FLU/RSV Today R09.81 - Nasal congestion Lipid Panel 3 Months E78.00 - Pure hypercholesterolemia, unspecified Comprehensive Met. Panel 3 Months E78.00 - Pure hypercholesterolemia, unspecified Medications: New fluticasone propionate 50 mcg/actuation (Flonase Allergy Relief) administer into each nostril 2 sprays intranasal DAILY 16 grams 0RF R09.81 - Nasal congestion Refilled hydrochlorothiazide 25 mg PO DAILY 90 tabs 2RF cholecalciferol (vitamin D3) 50 mcg PO DAILY 90 days 90 caps 3RF E55.9 - Vitamin D deficiency, unspecified, E78.00 - Pure hypercholesterolemia, unspecified losartan 25 mg PO DAILY 90 tabs 0RF I10 - Essential (primary) hypertension Coding Level of Care Code Est Pt Level 4 (19226) Diagnoses Right thyroid nodule E04.1 Hair loss L65.9 Obesity (BMI 30-39.9) E66.9 Gastroesophageal reflux disease without esophagitis K21.9 Esophagitis presence: without esophagitis Essential hypertension I10 Hypercholesterolemia E78.00 Nasal congestion R09.81 Impaired glucose tolerance R73.02
[2023-12-03 08:39] VITALS: BP 128/80; PULSE 74; O2SAT 99; BMI 32.1
== END 2023-12-03 09:20 | disposition home or self-care (01) ==
PROVIDERS: PCP Internal Medicine; Visit Provider Internal Medicine
DX: E04.1 Nontoxic single thyroid nodule (principal); E66.9 Obesity, unspecified; F33.9 Major depressive disorder, recurrent, unspecified; Z68.32 Body mass index [BMI] 32.0-32.9, adult; L65.9 Nonscarring hair loss, unspecified; K21.9 Gastro-esophageal reflux disease without esophagitis; I10 Essential (primary) hypertension; E78.00 Pure hypercholesterolemia, unspecified; R09.81 Nasal congestion; R73.02 Impaired glucose tolerance (oral)
CPT/HCPCS: 99214

== ENCOUNTER 2023-12-03 09:35 | Outpatient (REF) | payer OTHER, SELFPAY ==
[2023-12-03 10:35] LABS: Influenza A PCR NEGATIVE (Negative); Influenza B PCR NEGATIVE (Negative); Resp Syncy Virus RNA Qual PCR NEGATIVE (Negative); SARS COV2 PCR INHOUSE NEGATIVE (Negative)
== END 2023-12-03 09:36 | disposition home or self-care (01) ==
LOC: HO.LAB 09:35
PROVIDERS: PCP Internal Medicine; Visit Provider Internal Medicine
DX: Z11.52 Encounter for screening for COVID-19 (principal); Z20.822 Contact with and (suspected) exposure to COVID-19; R09.81 Nasal congestion
CPT/HCPCS: 0241U

== ENCOUNTER 2024-03-02 08:28 | Outpatient (REF) | payer OTHER, SELFPAY ==
[2024-03-02 08:48] LABS: Estimated Average Glucose 114 mg/dL; Hemoglobin A1c % 5.6 % (<6.0)
[2024-03-02 09:06] LABS: Alanine Aminotransferase 20 U/L (0-31); Albumin Level 4.1 g/dL (3.5-5.0); Alkaline Phosphatase 80 U/L (39-117); Anion Gap 14 (12-20); Aspartate Amino Transferase 23 U/L (5-31); Bilirubin Total 0.7 mg/dL (0.0-1.0); Blood Urea Nitrogen 13 mg/dL (9-16); Calcium 9.7 mg/dL (8.4-10.2); Carbon Dioxide 28 mmol/L (22-29); Chloride 106 mmol/L (96-108); Cholesterol 210 mg/dL (<200); Estimated Glomerular Filt Rate > 60; Glucose Random 111 mg/dL (60-115); HDL Cholesterol 36 mg/dL (>40); LDL Cholesterol Calculated 133 mg/dL (<100); Potassium 4.1 mmol/L (3.3-5.1); Sodium 144 mmol/L (135-145); Total Protein 7.8 g/dL (6.5-8.0); Triglycerides 209 mg/dL (<150)
== END 2024-03-02 08:29 | disposition home or self-care (01) ==
LOC: HO.LAB 08:28
PROVIDERS: PCP Internal Medicine; Visit Provider Internal Medicine
DX: E78.00 Pure hypercholesterolemia, unspecified (principal); R73.02 Impaired glucose tolerance (oral)
CPT/HCPCS: 36415; 80053; 80061; 83036

== ENCOUNTER 2024-03-04 10:19 | Outpatient (REF) | payer OTHER, SELFPAY | END 2024-03-04 10:20 | disposition home or self-care (01) | LOC: HO.MAMMO 10:19 | PROVIDERS: PCP Internal Medicine; Visit Provider Internal Medicine | DX: Z12.31 Encounter for screening mammogram for malignant neoplasm of breast (principal) | CPT/HCPCS: 77063; 77067 ==

== ENCOUNTER → 2024-03-04 10:45 | Outpatient (BNV) | payer OTHER, SELFPAY | PROVIDERS: PCP Internal Medicine; Visit Provider Radiology Diagnostic Radiology | DX: Z12.31 Encounter for screening mammogram for malignant neoplasm of breast (principal) | CPT/HCPCS: 77063; 77067 ==

== ENCOUNTER 2024-05-01 08:35 | Outpatient (AMB) | payer OTHER, SELFPAY ==
[2024-05-01 08:46] VITALS: BP 144/82; PULSE 78; O2SAT 98; BMI 31.0
--- NOTE | 2024-05-01 08:46 | A.OFFPC_ITS ---
Vital Signs 05/01/24 08:46 05/01/24 09:04 Height 5 ft 3 in Weight 175 lb BMI 31.0 BP 144/82 H 132/80 Blood Pressure Location Lt brachial Lt brachial Position Sitting Sitting Pulse 78 Pulse Source Pulse Oximeter Pulse Oximetry (%) 98 Oxygen Delivery Method Room Air Intake Visit Reasons: 3mth f/u Intake Note: Patient is suffering from vertigo and would like a refill on meclizine Allergies lisinopril Adverse Reaction (Intermediate, Verified 05/01/24 08:46) Nausea Medication List - Last Reconciled 05/01/24 by Cindi Torres MD blood pressure monitor (Blood Pressure Kit) As directed cholecalciferol (vitamin D3) 50 mcg PO DAILY 90 days clotrimazole 1% 1 appl topical BID 4 weeks fluticasone propionate 50 mcg/actuation (Flonase Allergy Relief) 2 sprays intranasal DAILY hydrochlorothiazide 25 mg PO DAILY losartan 25 mg PO DAILY meclizine 25 mg PO TID PRN naproxen 500 mg PO BID ondansetron 4 mg PO Q8H PRN sertraline 50 mg PO DAILY 90 days simvastatin 10 mg PO BEDTIME Tobacco use date assessed: 12/03/23 Dental Screening Dental Screen Date: 12/03/23 HPI 3mth f/u HPI Details 63-year-old obese female(noted 6 lb weig ht loss) with thyroid nodule GERD hypertension hypercholesterolemia impaired glucose tolerance last seen in 12/10/2023. Patient is up-to-date with colonoscopy mammogram [facility] Medical History (Updated 12/03/23 @ 09:12 by Cindi Torres MD) Enlarged thyroid Colon cancer screening Annual physical exam Seasonal allergies Overactive bladder Hypercholesterolemia Hypertension GERD (gastroesophageal reflux disease) Incisional hernia Vitamin D deficiency Obesity (BMI 30-39.9) Left adnexal tenderness COVID-19 Corneal transplant infection of left eye HTN (hypertension) Surgical History History of salpingoophorectomy History of corneal transplant History of tubal ligation Previous section Family History (Updated 08/27/23 @ 10:12 by Sheri Rivera CMA) Father Myocardial infarction Hypertension CVD (cardiovascular disease) Mother S/P CABG x 1 Diabetes Hypertension CVD (cardiovascular disease) Sister CVD (cerebrovascular disease) Brother Stroke Brain cancer Social History Housing: Apartment Alcohol intake: never Patient Tobacco Use Status: Never used Tobacco e-Cigarette/Vaping Use: Never Used Second Hand Smoke Exposure: No Current occupational status: employed 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 1. Little interest or pleasure in doing things: several days 2. Feeling down, depressed, or hopeless: more than half the days 3. Trouble falling or staying asleep, or sleeping too much: several days 4. Feeling tired or having little energy: several days 5. Poor appetite or overeating: not at all 6. Feeling bad about yourself - or that you are a failure or have let yourself or your family down: several days 7. Trouble concentrating on things, such as reading the newspaper or watching television: several days 8. Moving or speaking so slowly that other people could have noticed. Or the opposite - being so fidgety or restless that you have been moving around a lot more than usual: several days 9. Thoughts that you would be better off or of hurting yourself in some way: not at all Total score: 8 Depression Screening Interpretation: Negative Depression Screening Done: Yes Source: Developed by Drs. Gabriel Estevez, Esthela Ritter, Wali Mayorga and colleagues, with an educational [place] from [employer]. Thrive Questionnaire Date Thrive assessed: 12/03/23 AUDIT C Alcohol Use Questionnaire (AUDIT-C) 1. How often do you have a drink containing alcohol?: Never 2. How many drinks containing alcohol do you have on a typical day when you are drinking?: 1 or 2 (0) 3. How often do you have six or more drinks on one occasion?: Never Total Score: 0 HALEIGH-7 AMB Questionnaire HALEIGH-7 Date HALEIGH - 7 assessed: 12/03/23 Source: Developed by Drs. Gabriel Estevez, Esthela Ritter, Wali Mayorga and colleagues, with an educational [place] from [employer]. Physical exam (Primary Care) Vital Signs: Last Vital Signs Pulse 78 05/01/24 08:46 BP 144/82 H 05/01/24 08:46 Pulse Ox 98 05/01/24 08:46 Oxygen Delivery Method Room Air 05/01/24 08:46 BMI result Body Mass Index 31.0 Tobacco/Smoking Status: Tobacco use Status Tobacco use date assessed 12/03/23 05/01/24 08:52 Patient Tobacco Use Status Never used Tobacco 05/01/24 08:52 e-Cigarette/Vaping Use Never Used 05/01/24 08:52 PHQ-9: PHQ-9 Score PHQ-9: Total score 8 05/01/24 08:52 Depression Screening Interpretation: Negative Thrive Assessment: Date of Thrive Assessment Date Thrive assessed 12/03/23 05/01/24 08:52 Const General: alert; No acute distress Eyes Conjunctivae: conjunctivae normal Resp Auscultation: clear to auscultation bilaterally Cardio Rate: regular rate Rhythm: regular rhythm GI Inspection: Yes normal to inspection Extrem General: Yes normal to inspection and No edema Assessment and Plan Assessment & Plan (1) Obesity (BMI 30-39.9): Code(s): E66.9 - Obesity, unspecified Plan: Diet and exercise (2) GERD (gastroesophageal reflux disease): Code(s): K21.9 - Gastro-esophageal reflux disease without esophagitis Qualifiers: Esophagitis presence: without esophagitis Qualified Code(s): K21.9 - Gastro-esophageal reflux disease without esophagitis Plan: Avoid the foods that causes that usually spicy foods, tomato products, juices, coffee, soda and foods that your sensitive to. After eating do not lie down, allow 3-4 hours before in lie down. And keep the head of bed above 30 degrees to avoid the acid from going up. (3) Hypertension: Code(s): I10 - Essential (primary) hypertension Plan: Continue with blood pressure medication. Decrease salt intake and exercise taking losartan 25 mg once a day (4) Hypercholesterolemia: Code(s): E78.00 - Pure hypercholesterolemia, unspecified Plan: Avoid fried foods, chicken skin, eggs, butter margarine, pastries and meat. Be it pork or beef they have a lot of cholesterol LDL goal of less than 130 and triglyceride of less than 150 presently on simvastatin 10 mg at bedtime (5) Impaired glucose tolerance: Code(s): R73.02 - Impaired glucose tolerance (oral) Plan: Decrease the amount of carbohydrate intake, pasta, bread, rice and potatoes are all sugar and that is aside from all the sweet stuff, remember that fruits are good but they are Sweet also. Orders: Orders Complete Blood Count Auto Diff 3 Months E78.00 - Pure hypercholesterolemia, unspecified Comprehensive Met. Panel 3 Months E78.00 - Pure hypercholesterolemia, unspecified Hemoglobin A1c 3 Months E78.00 - Pure hypercholesterolemia, unspecified Lipid Panel 3 Months E78.00 - Pure hypercholesterolemia, unspecified Vitamin D 25-OH Total 3 Months E78.00 - Pure hypercholesterolemia, unspecified Free T4 (Free Thyroxine) 3 Months E78.00 - Pure hypercholesterolemia, unspecified Thyroid Stimulating Hormone 3 Months E78.00 - Pure hypercholesterolemia, unspecified Vitamin B12 and Folate 3 Months E78.00 - Pure hypercholesterolemia, unspecified UA w Microscopic 3 Months E78.00 - Pure hypercholesterolemia, unspecified Medications: New ondansetron 4 mg PO Q8H PRN 30 tabs 0RF nausea and vomiting clotrimazole 1% 1 appl topical BID 4 weeks 45 grams 0RF Refilled simvastatin 10 mg PO BEDTIME 90 tabs 1RF E78.00 - Pure hypercholesterolemia, unspecified losartan 25 mg PO DAILY 90 tabs 3RF I10 - Essential (primary) hypertension meclizine 25 mg PO TID PRN 30 tabs 0RF dizziness hydrochlorothiazide 25 mg PO DAILY 90 tabs 2RF Coding Level of Care Code Est Pt Level 4 (69807) Diagnoses Obesity (BMI 30-39.9) E66.9 Gastroesophageal reflux disease without esophagitis K21.9 Esophagitis presence: without esophagitis Essential hypertension I10 Hypercholesterolemia E78.00 Impaired glucose tolerance R73.02 Additional Codes PHQ-9 - 89063 - PHQ-9 Billing: ([id number])
[2024-05-01 09:04] VITALS: BP 132/80
== END 2024-05-01 09:15 | disposition home or self-care (01) ==
PROVIDERS: PCP Internal Medicine; Visit Provider Internal Medicine
DX: K21.9 Gastro-esophageal reflux disease without esophagitis (principal); Z68.31 Body mass index [BMI] 31.0-31.9, adult; E66.9 Obesity, unspecified; I10 Essential (primary) hypertension; E78.00 Pure hypercholesterolemia, unspecified; R73.02 Impaired glucose tolerance (oral)
CPT/HCPCS: 99214

== ENCOUNTER 2024-09-30 09:06 | Outpatient (REF) | payer OTHER, SELFPAY | END 2024-09-30 09:07 | disposition home or self-care (01) | LOC: HO.US 09:06 | PROVIDERS: PCP Internal Medicine; Visit Provider Internal Medicine | DX: E04.9 Nontoxic goiter, unspecified (principal) | CPT/HCPCS: 76536 ==

== ENCOUNTER 2025-01-04 07:58 | Outpatient (REF) | payer OTHER, SELFPAY ==
[2025-01-04 08:09] LABS: MANUAL DIFF FLAG NO
[2025-01-04 08:33] LABS: Basophils Percent Auto 0.4 % (0-2); Eosinophils Absolute Auto 0.2 X10*3/uL (0.0-0.4); Eosinophils Percent Auto 2.3 % (0-4); Hematocrit 39.5 % (37.0-47.0); Hemoglobin 13.1 g/dl (12.0-16.0); Imm Gran Abs Auto 0.02 X10*3/uL (0.00-0.03); Imm Gran Pct Auto 0.3 % (0.0-0.4); Lymphocytes Absolute Auto 2.8 X10*3/uL (1.2-4.9); Lymphocytes Percent Auto 37.1 % (20-40); Mean Corpuscular HGB Conc 33.2 g/dl (31.0-35.0); Mean Corpuscular Hemoglobin 26.6 pg (27.0-33.0); Mean Corpuscular Volume 80.3 fL (80.0-98.0); Mean Platelet Volume 11.8 fL (9.4-12.3); Monocytes Absolute Auto 0.5 X10*3/uL (0.1-1.2); Monocytes Percent Auto 6.1 % (2-11); Neutrophils Percent Auto 53.8 % (45-73); Platelet Count 291 X10*3/uL (160-400); Red Blood Count 4.92 X10*6/uL (4.20-5.50); Red Cell Distribution Width 14.1 % (11.0-16.0); White Blood Count 7.4 X10*3/uL (4.8-10.8)
[2025-01-04 09:01] LABS: Appearance Urine Clear; Color Urine Yellow; Glucose Urine UA Negative (Negative); Leukocyte Esterase Urine Moderate (2+) (Negative); Nitrite Urine Negative (Negative); PH 7.5 (5.0-9.0); Specific Gravity - Urine 1.015 (1.005-1.025); UMIC TRIGGER UA YES; Urine Blood Negative (Negative); Urine Ketones Negative (Negative); Urine Protein Negative (Neg-Trace)
[2025-01-04 09:03] LABS: Bacteria Urine None Seen (None Seen); Hyaline Casts Urine 0-2 /LPF (0-2); RBC Urine 0-2 /HPF (0-2)
[2025-01-04 09:47] LABS: Estimated Average Glucose 114 mg/dL; Hemoglobin A1C 129.6965 umol/L; Hemoglobin A1c % 5.6 % (<6.0); Total Hemoglobin (HGBA1C) 3489.7383 umol/L
[2025-01-04 10:04] LABS: Alanine Aminotransferase 18 U/L (0-31); Albumin Level 4.1 g/dL (3.5-5.0); Alkaline Phosphatase 85 U/L (39-117); Anion Gap 13 (12-20); Aspartate Amino Transferase 23 U/L (5-31); Bilirubin Total 0.6 mg/dL (0.0-1.0); Blood Urea Nitrogen 13 mg/dL (9-16); Calcium 9.5 mg/dL (8.4-10.2); Carbon Dioxide 30 mmol/L (22-29); Chloride 104 mmol/L (96-108); Cholesterol 215 mg/dL (<200); Estimated Glomerular Filt Rate > 60; Free T4 (Free Thyroxine) 1.05 ng/dL (0.71-1.85); Glucose Random 113 mg/dL (60-115); HDL Cholesterol 35 mg/dL (>40); LDL Cholesterol Calculated 139 mg/dL (<100); Potassium 4.3 mmol/L (3.3-5.1); Sodium 143 mmol/L (135-145); Thyroid Stimulating Hormone 2.32 uIU/mL (0.32-4.0); Total Protein 7.8 g/dL (6.5-8.0); Triglycerides 208 mg/dL (<150); Vitamin D 25-OH Total 26.6 ng/mL (>30)
[2025-01-04 10:24] LABS: Folate 10.5 ng/mL (> or = 4.0); Vitamin B12 476 pg/mL (200-900)
[2025-01-05 03:02] LABS: CT PCR NOT DETECTED (Not Detect.); NG PCR NOT DETECTED (Not Detect.)
[2025-01-05 10:50] LABS: Bacterial Vaginosis PCR NEGATIVE (Negative); Candida Group PCR NOT DETECTED (Not Detect); Candida glab krusei PCR NOT DETECTED (Not Detect); Trichomonas vaginalis PCR NOT DETECTED (Not Detect)
[2025-01-13 13:00] LABS: HPV Genotype 16 Negative (Negative); HPV Genotype 18 Negative (Negative); HPV High Risk Negative (Negative)
== END 2025-01-04 07:59 | disposition home or self-care (01) ==
LOC: HO.LAB 07:58
PROVIDERS: PCP Internal Medicine; Visit Provider Internal Medicine
DX: Z00.00 Encounter for general adult medical examination without abnormal findings (principal); Z23 Encounter for immunization; Z12.4 Encounter for screening for malignant neoplasm of cervix; E78.00 Pure hypercholesterolemia, unspecified; K21.9 Gastro-esophageal reflux disease without esophagitis; I10 Essential (primary) hypertension; R73.02 Impaired glucose tolerance (oral); F33.9 Major depressive disorder, recurrent, unspecified; E04.1 Nontoxic single thyroid nodule; L81.9 Disorder of pigmentation, unspecified; Z79.899 Other long term (current) drug therapy
CPT/HCPCS: 36415; 80053; 80061; 81001; 81515; 82306; 82607; 82746; 83036; 84439; 84443; 85025; 87491; 87591; 87626; 88175; 90471; 90656; 96127; 99396

== ENCOUNTER 2025-01-04 16:49 | Outpatient (AMB) | payer OTHER, SELFPAY ==
[2025-01-04 17:27] VITALS: BP 136/86; PULSE 96; TEMP 36.6; O2SAT 97; BMI 31.9
--- NOTE | 2025-01-04 17:27 | A.OFFPC_ITS ---
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 Accompanied by: Self / Same As Patient Allergies lisinopril Adverse Reaction (Intermediate, Verified 01/04/25 17:31) Nausea Medication List - Last Reconciled 01/04/25 by Cindi Torres MD blood pressure monitor (Blood Pressure Kit) As directed cholecalciferol (vitamin D3) 50 mcg PO DAILY 90 days clotrimazole 1% 1 appl topical BID 4 weeks fluticasone propionate 50 mcg/actuation (Flonase Allergy Relief) 2 sprays intranasal DAILY hydrochlorothiazide 25 mg PO DAILY losartan 25 mg PO DAILY meclizine 25 mg PO TID PRN naproxen 500 mg PO BID sertraline 50 mg PO DAILY 90 days simvastatin 10 mg PO BEDTIME Tobacco use date assessed: 01/04/25 Dental Screening Dental Screen Date: 01/04/25 Did you have a dental visit in the last 12 months?: Yes Did you have a dental problem in the last 6 months where you did not have access to dental care?: No Was dental information given to patient?: Patient has dentist HPI PE and med Review HPI Details occ dizzy, PFSH Medical History (Updated 01/04/25 @ 18:37 by Cindi Torres MD) Enlarged thyroid Colon cancer screening Annual physical exam Seasonal allergies Overactive bladder Hypercholesterolemia Hypertension GERD (gastroesophageal reflux disease) Incisional hernia Vitamin D deficiency Obesity (BMI 30-39.9) Left adnexal tenderness COVID-19 Corneal transplant infection of left eye HTN (hypertension) Surgical History History of salpingoophorectomy History of corneal transplant History of tubal ligation Previous section Family History Father Myocardial infarction Hypertension CVD (cardiovascular disease) Mother S/P CABG x 1 Diabetes Hypertension CVD (cardiovascular disease) Sister CVD (cerebrovascular disease) Brother Stroke Brain cancer Social History (Reviewed 01/04/25 @ 17:34 by JANET Stringer Housing: Apartment Alcohol intake: never Patient Tobacco Use Status: Never used Tobacco e-Cigarette/Vaping Use: Never Used Second Hand Smoke Exposure: No Current occupational status: employed 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 1. Little interest or pleasure in doing things: several days 2. Feeling down, depressed, or hopeless: more than half the days 3. Trouble falling or staying asleep, or sleeping too much: several days 4. Feeling tired or having little energy: several days 5. Poor appetite or overeating: not at all 6. Feeling bad about yourself - or that you are a failure or have let yourself or your family down: several days 7. Trouble concentrating on things, such as reading the newspaper or watching television: several days 8. Moving or speaking so slowly that other people could have noticed. Or the opposite - being so fidgety or restless that you have been moving around a lot more than usual: several days 9. Thoughts that you would be better off or of hurting yourself in some way: not at all Total score: 8 Depression Screening Interpretation: Negative Depression Screening Done: Yes 16772 - PHQ-9 Billing: Yes Source: Developed by Drs. Gabriel Estevez, Esthela Ritter, Wali Mayorga and colleagues, with an educational [place] from [employer]. Thrive Questionnaire Date Thrive assessed: 01/04/25 I am a: Patient What is your living situation today?: I have a steady place to live Within the past 12 months, did the food you bought not last and you didn't have the money to get more?: Sometimes True Within the past 12 months, did you worry whether your food would run out before you got money to buy more?: Sometimes True Do you have trouble paying for medicines?: No Do you have trouble getting transportation to medical appointments?: No Do you have trouble paying your heating and electricity bill?: No Do you have trouble taking care of your child, family member or friend?: No Do you have trouble with day-to-day activities such as bathing, preparing meals, shopping, managing finances, etc.?: No Are you currently unemployed and looking for a job?: No Are you interested in more education?: No Please select the resources that you would like help with: None Currently or been in a relationship where the following occur: No concerns reported THRIVE Score: 2 AUDIT C Alcohol Use Questionnaire (AUDIT-C) 1. How often do you have a drink containing alcohol?: Never 2. How many drinks containing alcohol do you have on a typical day when you are drinking?: 1 or 2 (0) 3. How often do you have six or more drinks on one occasion?: Never Total Score: 0 HALEIGH-7 AMB Questionnaire HALEIGH-7 Date HALEIGH - 7 assessed: 01/04/25 Feeling nervous, anxious, or on edge: 0 = Not at all Not being able to stop or control worryin = Not at all Worrying too much about different things: 0 = Not at all Trouble relaxin = Not at all Being so restless that it is hard to sit still: 0 = Not at all Becoming easily annoyed or irritable: 0 = Not at all Feeling afraid as if something awful might happen: 0 = Not at all Total HALEIGH-7 score (0-4 normal; 5-9 mild; 10-14 moderate; 15-21 severe): 0 Source: Developed by Drs. Gabriel Estevez, Esthela Ritter, Wali Mayorga and colleagues, with an educational [place] from [employer]. HALEIGH-7 Assessment Billing HALEIGH-7 Assessment Tool: HALEIGH-7 Assessment 83336 Review of Systems Const Denies poor appetite and Denies weakness Eyes Denies no additional complaints ENT Reports Normal hearing present, Denies dizziness, Denies nasal congestion, Denies tinnitus and Denies sore throat Card Denies chest pain, Denies syncope, Denies rapid heart rate and Denies dyspnea Resp Denies cough and Denies dyspnea GI Denies change in stool character, Reports constipation, Denies diarrhea, Denies nausea and Denies vomiting Denies urinary frequency, Denies difficulty voiding and Denies dysuria Neuro Reports Normal hearing present, Denies confusion, Denies dizziness, Denies syncope and Denies weakness Psych Denies confusion Physical exam (Primary Care) Vital Signs: Last Vital Signs Temp 97.8 F 01/04/25 17:27 Pulse 96 01/04/25 17:27 BP 136/86 01/04/25 17:27 Pulse Ox 97 01/04/25 17:27 Oxygen Delivery Method Room Air 01/04/25 17:27 BMI result Body Mass Index 31.9 Tobacco/Smoking Status: Tobacco use Status Tobacco use date assessed 01/04/25 01/04/25 17:35 Patient Tobacco Use Status Never used Tobacco 01/04/25 17:28 e-Cigarette/Vaping Use Never Used 01/04/25 17:28 PHQ-9: PHQ-9 Score PHQ-9: Total score 8 01/04/25 18:06 Depression Screening Interpretation: Negative Thrive Assessment: Date of Thrive Assessment Date Thrive assessed 01/04/25 01/04/25 17:28 Currently or been in a relationship where the following occur: No concerns reported Const General: No confusion Orientation/consciousness: No confusion HENMT Head: Yes normocephalic Ears: external ears normal and TM's normal bilaterally Face and sinus: Yes normal facial exam Mouth: moist mucous membranes Throat: Yes tonsils normal Eyes Conjunctivae: conjunctivae normal Pupils: Equal, round and reactive pupils present and Pupil accommodation reflex normal Direct Ophthalmoscopy: normal light reflex Neck Neck: No lymphadenopathy Thyroid: Thyroid normal Chest Chest palpation & inspection: normal inspection of the chest Resp Effort & Inspection: normal respiratory effort and no audible wheezes Auscultation: clear to auscultation bilaterally, no crackles, no wheezes and lung sounds not diminished Cardio Rate: regular rate Rhythm: regular rhythm Peripheral pulses: radial pulses present and dorsalis pedis present GI Other: guaiac negative stools Palpation (GI): no masses Auscultation: normal bowel sounds and normoactive bowel sounds Other: moderate vaginal discharge General: Yes Bimanual renal exam normal bilaterally External Female Exam: normal external appearance Speculum Exam - Vagina: normal appearance of the vagina Speculum Exam - Cervix: normal appearance of the cervix Bimanual exam- vagina & uterus: normal bimanual exam Bimanual Exam- Adnexa, other: normal adnexae Skin General skin exam: no rashes or lesions noted Rashes: no rashes Neuro General: No confusion Cranial nerves: Yes Equal, round and reactive pupils present and Yes Normal hearing present Cognition (Neuro): normal cognition Gait exam (Neuro): Normal gait present Motor exam (neuro): 5/5 motor strength present throughout Deep tendon reflexes (DTR's): Right brachioradialis reflex intensity grade: 2+, Left brachioradialis reflex intensity grade: 2+, Right patellar reflex intensity grade: 2+ and Left patellar reflex intensity grade: 2+ Extrem General: No edema Office Procedures Flu Questionnaire Does the patient have a severe egg allergy?: No Does the patient have severe life threatening allergies?: No Does the patient have a fever or illness today?: No Has the patient ever had Guillain-[place] Syndrome?: No Has the patient ever had any past reaction to a flu shot?: No Immunizations Fluarix Triv 3740-5292 (PF) 45 mcg (15 mcg x 3)/0.5 mL IM syringe Performing Provider: Cindi Torres MD [facility] Administered by: JUAN Fragoso on 01/04/25 17:45 Dose Route Admin Location Dispensed Lot Number Expiration Date NDC Test Facility Engineer 0.5 mL IM Left Deltoid 0.5 mL [id number] 04/19/25 [id number] [employer] VIS Given Date VIS Provided VIS Publication Date 01/04/25 Single Vaccine 21 Eligibility Eligibility Date Funding Source Not [facility] Eligible 01/04/25 Private Coding Level of Care Code Est Pt Prev Care 40-64y(22955) Diagnoses Annual physical exam Z00.00 Gastroesophageal reflux disease without esophagitis K21.9 Esophagitis presence: without esophagitis Essential hypertension I10 Hypercholesterolemia E78.00 Impaired glucose tolerance R73.02 Recurrent major depression F33.9 Right thyroid nodule E04.1 Cervical cancer screening Z12.4 Hyperpigmented skin lesion L81.9 Additional Codes HALEIGH-7 Assessment Billing - HALEIGH-7 Assessment Tool: HALEIGH-7 Assessment 02478 ([id number]) PHQ-9 - 26417 - PHQ-9 Billing: Yes ([id number]) Assessment & Plan Assessment & Plan (1) Annual physical exam: Code(s): Z00.00 - Encounter for general adult medical examination without abnormal findings Category: Medical Plan: Patient is advised to eat healthy, keep well hydrated, keep active and have adequate sleep. (2) GERD (gastroesophageal reflux disease): Code(s): K21.9 - Gastro-esophageal reflux disease without esophagitis Category: Medical Qualifiers: Esophagitis presence: without esophagitis Qualified Code(s): K21.9 - Gastro-esophageal reflux disease without esophagitis Plan: Avoid the foods that causes that usually spicy foods, tomato products, juices, coffee, soda and foods that your sensitive to. After eating do not lie down, allow 3-4 hours before in lie down. And keep the head of bed above 30 degrees to avoid the acid from going up. (3) Hypertension: Code(s): I10 - Essential (primary) hypertension Category: Medical Plan: Continue with blood pressure medication. Decrease salt intake and exercise on losartan 25 mg once a day and hydrochlorothiazide 25 mg once a day (4) Hypercholesterolemia: Code(s): E78.00 - Pure hypercholesterolemia, unspecified Category: Medical Plan: Avoid fried foods, chicken skin, eggs, butter margarine, pastries and meat. Be it pork or beef they have a lot of cholesterol LDL goal of less than 130 and triglyceride of less than 150 (5) Impaired glucose tolerance: Code(s): R73.02 - Impaired glucose tolerance (oral) Category: Medical Plan: Decrease the amount of carbohydrate intake, pasta, bread, rice and potatoes are all sugar and that is aside from all the sweet stuff, remember that fruits are good but they are Sweet also. (6) Recurrent major depression: Comment: [facility] Code(s): F33.9 - Major depressive disorder, recurrent, unspecified Category: Medical Plan: Continue with counseling and therapy on sertraline (7) Right thyroid nodule: Comment: September 2023 1.1 cm TR4 right thyroid nodule. Recommend followup ultrasound in 01 November 2024 follow-up in 1 year months. Code(s): E04.1 - Nontoxic single thyroid nodule Category: Medical Plan: Advised to follow-up ultrasound in 1 year (8) Cervical cancer screening: Code(s): Z12.4 - Encounter for screening for malignant neoplasm of cervix Category: Medical (9) Hyperpigmented skin lesion: Comment: arms Code(s): L81.9 - Disorder of pigmentation, unspecified Category: Medical Plan History of Present Illness The patient is a 64-year-old female presenting with a need for a wellness exam and ongoing assessment of her chronic health conditions, including essential hypertension and hypercholesterolemia. Her hypertension is being managed with Losartan 25 mg once daily, and she is actively working on achieving an LDL goal of less than 130 mg/dL. Additionally, impaired glucose tolerance is a concern, managed through lifestyle modifications. She is also treated for major depressive disorder with Cetralalin 50 mg once daily and engages in ongoing therapy. The patient presents with an overactive bladder but details on its current management were not expanded during the visit. Monitoring occurs for a right thyroid nodule, last assessed by imaging in early 2024. Her health maintenance includes regular screenings, with a recent colonoscopy and mammography having been conducted in recent years without incident. Blood work emphasizes a need for targeted interventions to address elevated cholesterol levels and to maintain glucose control. Health Maintenance - Blood pressure management with Losartan to control essential hypertension. - Cholesterol control with a target LDL goal of less than 130 mg/dL. - Surveillance for impaired glucose tolerance and diabetes prevention. - Regular screening with recent colonoscopy (September 18, 2022) and mammography (mid). - Monitoring of thyroid nodule with the last ultrasound in October 2024. - Ongoing major depressive disorder management with Cetralalin 50 mg and therapy. Social History Review of Systems - Genitourinary: Reports overactive bladder. Physical Exam General: Cooperative, healthy appearing, comfortable, no acute distress and well developed Orientation: Patient oriented x3 Limitations: No limitations Head: Normal to inspection Ears: Hearing grossly normal bilaterally Nose: Normal external nose present Face and sinus: Normal facial exam Eyes: Appearance normal, both eyes and all related structures Neck: Normal visual inspection and Yes full ROM Respiratory: Normal respiratory effort and able to speak in complete sentences. Clear to auscultation bilaterally Cardiovascular: Regular rate and rhythm. Normal S1 and S2 GI: Normal to inspection. Soft to palpation and nontender Skin: No rashes or lesions noted Neuro: Patient oriented x3 Extremities: Normal to inspection Results - Labs: Normal blood count, normal electrolytes, normal renal function, elevated fasting blood sugar at 113 mg/dL, normal hemoglobin A1c, elevated cholesterol with LDL 139 mg/dL, triglycerides 208 mg/dL, low vitamin D. Plan The plan entails ongoing management of essential hypertension with Losartan and the pursuit of cholesterol reduction strategies to achieve target LDL levels. Surveillance of impaired glucose tolerance continues through lifestyle i nterventions to mitigate diabetes risks. Management of major depressive disorder proceeds with Cetralalin and therapy. Periodic assessment for the thyroid nodule and vigilance regarding the overactive bladder are advised, alongside revisiting vitamin D management as indicated. Patient was informed and verbally consented to the use of an ambient scribe for clinic note documentation during this visit. Discussion Notes During this visit, we reviewed the patient's ongoing care plan and emphasized the importance of regular monitoring of her chronic illnesses, including hypertension and hypercholesterolemia. I discussed managing glucose levels to avert diabetes progression and stressed the importance of adherence to her current major depressive disorder treatment. We also reviewed the normal results from her prior preventive screenings. I encouraged the continuation of health maintenance strategies, including dietary and lifestyle changes, to improve her overall health. Patient Instructions - Continue Losartan 25 mg once daily for blood pressure management. - Follow cholesterol-lowering strategies to achieve LDL target. - Maintain lifestyle adjustments for glucose management. - Continue consuming Cetralalin 50 mg daily for depression. - Remain engaged in ongoing therapy and counseling. - Observe for any changes with overactive bladder symptoms and report as necessary. Orders: Orders Bacterial Vaginosis Panel Today Z12.4 - Encounter for screening for malignant neoplasm of cervix CT NG by PCR Today Z12.4 - Encounter for screening for malignant neoplasm of cervix Influenza [id number] Immunization Today Z23 - Encounter for immunization Pap Smear Today Z12.4 - Encounter for screening for malignant neoplasm of cervix HPV High risk Today Z12.4 - Encounter for screening for malignant neoplasm of cervix Lipid Panel 3 Months E78.00 - Pure hypercholesterolemia, unspecified Comprehensive Met. Panel 3 Months E78.00 - Pure hypercholesterolemia, unspecified Hemoglobin A1c 3 Months E78.00 - Pure hypercholesterolemia, unspecified Referrals Dermatology Referral L81.9 - Disorder of pigmentation, unspecified Medications: New nitrofurantoin monohyd/m-cryst 100 mg (Macrobid) must administer with a meal/food 100 mg PO Q12H 7 days 14 caps 0RF nitrofurantoin monohyd/m-cryst 100 mg (Macrobid) must administer with a meal/food 100 mg PO Q12H 14 caps 0RF 7 days
--- OUTSIDE RECORDS SUMMARY | 2025-01-04 18:36 | XMS_ITS | Clinical Summary ---
Author Organization [employer] Address [address] [place] [address] Care Team Providers Care Technical Delivery Manager Name Role Phone Unavailable Primary Care Provider Unavailabl e Allergies Active Allergy Reactions Criticality Noted Date Comments Lisinopril 02/19/2024 Other Reaction(s): dizzy,vomiting Medications amoxicillin (Amoxil) 500 MG capsule TAKE 1 CAPSULE BY MOUTH EVERY 8 HOURS FOR 7 DAYS 4 Active HYDROCHLOROTHIAZID E PO Take 25 mg by mouth. 1 Active losartan (Cozaar) 25 MG tablet Take 25 mg by mouth Once per day. 4 Active sertraline (Zoloft) 50 MG tablet Take 50 mg by mouth Once per day. 4 Active cholecalciferol (Vitamin D-3) 50 MCG (2000 UT) capsule Take by mouth Once per day. 4 Active simvastatin (Zocor) 10 MG tablet 4 Active ondansetron ODT (Zofran-ODT) 4 MG disintegrating tablet DISSOLVE 1 TABLET BY MOUTH EVERY 8 HOURS NEEDED FOR NAUSEA AND VOMITING 4 Active meclizine (Antivert) 25 MG tablet TAKE 1 TAB (25 MG0 ORALLY 3 TIMES A DAY NEEDED FOR DIZZINESS 4 Active Active Problems Problem Noted Date Diagnosed Date Hypertension 03/09/2024 Mass of left ovary 03/09/2024 Encounters Date Type Department Care Team Description 10/27/2024 9:00 AM EST Office Visit [facility] [address] [place] [address] Luis Miguel Islas DMD Excessive dental attrition (Primary Dx) from Last 3 Months Social History Tobacco Use Types Packs/Day Years Used Date Smoking Tobacco: Never Smokeless Tobacco: Never Tobacco Cessation:Counseling Given: Not Answered Alcohol Use Standard Drinks/Week Comments Never 0 (1 standard drink = 0.6 oz pur e alcohol) Comments Unknown Sex and Gender Information Value Date Recorded Sex Assigned at Female 02/18/2024 4:19 PM EDT Legal Sex Female 4:17 PM EDT Gender Identity Female 02/18/2024 4:19 PM EDT Sexual Orientation Straight 02/18/2024 4: 19 PM EDT Last Filed Vital Signs Vital Sign Reading Time Taken Comments Blood Pressure 130/92 10/27/2024 9:17 AM EST Pulse 65 08/10/2024 10:43 AM EDT Temperature - - Respiratory Rate - - Oxygen Saturation - - Inhaled Oxygen Concentration - - Weight - - Height - - Body Mass Index - - Plan of Treatment Health Maintenance Due Date Last Done Comments CT Colonography 1961 Colonoscopy 1961 Colorectal Cancer Screening 1961 Depression Screening 1961 FIT DNA/Cologuard 1961 FIT 1961 FOBT 1961 HIV Screening 1961 Lipid Panel 1961 SDOH Screening 1961 Sigmoidoscopy 1961 Alcohol/Substance Use Screening 1973 Hepatitis C Screening 1979 Pap Smear 1982 Cervical Cancer Screening 1991 HPV/Cotest 1991 Mammogram 2001 Pneumococcal Vaccine: 50+ Years (1 of 1 - PCV) 2011 Zoster Vaccines (1 of 2) 2011 DTaP/Tdap/Td Vaccines (1 - Tdap) 08/22/2022 08/21/2022 COVID-19 Vaccine (1 - season) 2024 Influenza Vaccine (#1) 2024 , 07/20/2022, 08/03/2021, Additional history exists Dental Oral Exam 02/09/2025 08/10/2024 Dental Prophylaxis 02/09/2025 08/10/2024 Dental X-Ray: Bitewings 08/11/2025 08/10/2024, 02/18 Tobacco Screening 10/27/2025 10/27/2024 Dental X-Ray: Full Mouth 08/11/2027 08/10/2024 RSV Patients and Patients Aged 60 years or older (1 - 1-dose 75+ series) 2036 HIB Vaccines Aged Out No longer eligi ble based on patient's age to complete this topic HPV Vaccines Aged Out No longer eligi ble based on patient's age to complete this topic Hepatitis A Vaccines Aged Out No long er eligible based on patient's age to complete this topic Hepatitis B Vaccines Aged Out No long er eligible based on patient's age to complete this topic IPV Vaccines Aged Out No longer eligi ble based on patient's age to complete this topic Meningococcal Vaccine Aged Out No diallo janis eligible based on patient's age to complete this topic RSV under 20 months Aged Out No longe r eligible based on patient's age to complete this topic Rotavirus Vaccines Aged Out No longer eligible based on patient's age to complete this topic Procedures Procedure Name Priority Date/Time Associated Diagnosis Comments CASE PRESENTATION, DETAILED AND EXTENSIVE TREATMENT PLANNING Routine 10/27/2024 9:00 AM EST Excessive dental attrition 26 LI RESIN-BASED COMPOSITE - 2 SURF, ANTERIOR Routine 10/27/2024 9:00 AM EST Excessive dental attrition PROPHYLAXIS - ADULT Routine 08/10/2024 1 1:00 AM EDT Dental calculus Dental caries INTRAORAL - COMPLETE SERIES OF RADIOGRAPHIC IMAGES Routine 08/10/2024 11:00 AM EDT Dental calculus Dental caries COMPREHENSIVE ORAL EVALUATION - NEW OR ESTABLISHED PATIENT Routine 08/10/2024 11:00 AM EDT Dental calculus Dental caries from Last 3 Months or Most Recently Relevant to Health Maintenance Insurance [facility]AL-[facility] MEDICAID STAND ADULT
== END 2025-01-04 18:40 | disposition home or self-care (01) ==
LOC: HO.HMCH 16:50
PROVIDERS: PCP Internal Medicine; Visit Provider Internal Medicine
DX: Z00.00 Encounter for general adult medical examination without abnormal findings (principal); K21.9 Gastro-esophageal reflux disease without esophagitis; F33.9 Major depressive disorder, recurrent, unspecified; I10 Essential (primary) hypertension; E78.00 Pure hypercholesterolemia, unspecified; R73.02 Impaired glucose tolerance (oral); E04.1 Nontoxic single thyroid nodule; Z12.4 Encounter for screening for malignant neoplasm of cervix; L81.9 Disorder of pigmentation, unspecified; Z23 Encounter for immunization

== ENCOUNTER 2025-01-11 14:33 | Emergency (ER) | payer OTHER, SELFPAY ==
[2025-01-11 15:20] VITALS: BP 110/72; PULSE 86; RESP 18; TEMP 37.4; O2SAT 99; BMI 31.0
--- NOTE | 2025-01-11 15:22 | ED.GENADULT ---
HPI - General Adult General Chief complaint: General Medical Stated complaint: vomiting headache back and abd pain Time Seen by Provider: 01/11/25 19:53 Source: patient Limitations: no limitations History of Present Illness ED Provider: Sabine Mendes PA-C HPI narrative: 64-year-old female with a history of GERD, hypertension, hyperlipidemia, overactive bladder, depression, arthritis, who presents with flu-like symptoms x3 days. Associated nausea, vomiting, headache and generalized myalgias. Patient also states she has been being treated for a urinary tract infection, she started Macrobid last week, she is still having urinary symptoms. Related Data Previous Rx's ?Medication ?Instructions ?Recorded blood pressure monitor (Blood #1 ea 12/26/21 Pressure Kit) naproxen 500 mg tablet 500 mg PO BID #60 tabs 05/10/22 cholecalciferol (vitamin D3) 50 50 mcg PO DAILY 90 days #90 caps 12/03/23 mcg (2,000 unit) capsule fluticasone propionate 50 2 spray intranasal DAILY #16 grams 12/03/23 mcg/actuation nasal spray,suspension (Flonase Allergy Relief) clotrimazole 1 % topical cream 1 appl topical BID 4 weeks #45 05/01/24 grams hydrochlorothiazide 25 mg tablet 25 mg PO DAILY #90 tabs 05/01/24 losartan 25 mg tablet 25 mg PO DAILY #90 tabs 05/01/24 meclizine 25 mg tablet 25 mg PO TID PRN dizziness #30 tabs 05/01/24 simvastatin 10 mg tablet 10 mg PO BEDTIME #90 tabs 05/01/24 nitrofurantoin 100 mg PO Q12H 7 days #14 caps 01/04/25 monohydrate/macrocrystals 100 mg capsule (Macrobid) sertraline 50 mg tablet 50 mg PO DAILY 90 days #90 tabs 01/08/25 ondansetron HCl 4 mg tablet 4 mg PO Q8H PRN nausea and 01/11/25 vomiting #10 tabs Allergies Allergy/AdvReac Type Severity Reaction Status Date / Time lisinopril AdvReac Intermediate Nausea Verified 01/11/25 15:22 Review of Systems Review of Systems: Yes all other systems are reviewed and are negative Constitutional: Constitutional: Reports fatigue, Denies fever(s), Reports malaise and Reports poor appetite Cardiovascular: Cardiovascular: Denies chest pain Gastrointestinal: Gastrointestinal: Denies abdominal pain, Reports nausea and Reports vomiting Genitourinary: Genitourinary: Reports dysuria Endocrine: Endocrine: Reports fatigue PMFSH Past Medical History Attestation statement: The following information was validated with the patient. Medical History (Updated 01/11/25 @ 20:17 by GABE Zazueta) Enlarged thyroid Colon cancer screening Annual physical exam Seasonal allergies Overactive bladder Hypercholesterolemia Hypertension GERD (gastroesophageal reflux disease) Incisional hernia Vitamin D deficiency Obesity (BMI 30-39.9) Left adnexal tenderness COVID-19 Corneal transplant infection of left eye HTN (hypertension) Surgical History History of salpingoophorectomy History of corneal transplant History of tubal ligation Previous section Family History Family History Father Myocardial infarction Hypertension CVD (cardiovascular disease) Mother S/P CABG x 1 Diabetes Hypertension CVD (cardiovascular disease) Sister CVD (cerebrovascular disease) Brother Stroke Brain cancer Social History Social History Housing: Apartment Alcohol intake: never Patient Tobacco Use Status: Never used Tobacco Smoked in Last 30 Days: No e-Cigarette/Vaping Use: Never Used Second Hand Smoke Exposure: No Advance Directives: No Advance Directives Information Provided: Yes Current occupational status: employed 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 Cognitive needs: No Hearing needs: No Vision needs: No Physical Exam ED Vital Signs: Vital Signs - 24 hr 01/11/25 15:20 01/11/25 20:30 01/11/25 20:32 Temperature 99.4 F 99.5 F 99.5 F Pulse Rate 86 98 98 Respiratory Rate 18 16 16 Blood Pressure 110/72 111/73 111/73 Pulse Oximetry 99 97 97 Oxygen Delivery Method Room Air Room Air Room Air BMI result Body Mass Index 31.0 Const Other: Alert Orientation/consciousness: patient oriented x3 Resp Effort & Inspection: normal respiratory effort Cardio Other: Normal peripheral perfusion Skin Other: Warm dry no rash Neuro General: patient oriented x3, gait normal, no focal motor deficits and CN's II-XI intact bilaterally Psych Other: Cooperative Course Course Course Narrative: The patient is a 64-year-old female with a history of GERD, hypertension, hyperlipidemia, overactive bladder, depression, arthritis, who presents with flu-like symptoms x3 days. Associated nausea, vomiting, headache and generalized myalgias. Patient also states she has been being treated for a urinary tract infection, she started Macrobid last week, she is still having urinary symptoms. We will be screening basic labs a viral panel and a UA. Patient's vitals are stable, she can return to the waiting room pending her full medical assessment. Medications Administered Discontinued Medications Generic Name Dose Route Start Last Admin Trade Name Freq PRN Reason Stop Dose Admin Ondansetron HCl 8 mg 01/11/25 20:14 01/11/25 20:29 Ondansetron Odt 8 Mg Tab.Rapdis TRANSLINGU 01/11/25 20:15 8 mg ONCE ONE Administration Medical Decision Making Medical Decision Making MDM Narrative: 64-year-old female with a history of GERD, hypertension, hyperlipidemia, overactive bladder, depression, arthritis, who presents with flu-like symptoms x3 days. Associated nausea, vomiting, headache and generalized myalgias. Patient also states she has been being treated for a urinary tract infection, she started Macrobid last week, she is still having urinary symptoms. No relevant chronic issues History: Per patient I have considered the following differential diagnoses: Pyelonephritis, UTI, viral syndrome Plan: Patient here with a constellation of viral related symptoms, we will obtain screening labs, viral panel. Repeating her urinalysis given ongoing dysuria. Thought about pyelonephritis, however the patient was afebrile at this time, she has no focal back pain, her pain distribution is widespread, more consistent with viral syndrome. I have independently reviewed the following tests: Labs: No leukocytosis, not anemic, no electrolyte abnormality, urine not infected, positive for influenza A....... She is beyond the window for Tamiflu we will send with home care instructions. Lab Data 01/11/25 16:23 01/11/25 16:23 Labs: Lab Results 01/11/25 Range/Units 16:23 WBC 9.9 (4.8-10.8) X10*3/uL RBC 5.40 (4.20-5.50) X10*6/uL Hgb 14.4 (12.0-16.0) g/dl Hct 42.9 (37.0-47.0) % MCV 79.4 L (80.0-98.0) fL MCH 26.7 L (27.0-33.0) pg MCHC 33.6 (31.0-35.0) g/dl RDW 14.1 (11.0-16.0) % Plt Count 300 (160-400) X10*3/uL MPV 11.7 (9.4-12.3) fL Immature Gran % (Auto) 0.4 (0.0-0.4) % Neut % (Auto) 81.9 H (45-73) % Lymph % (Auto) 11.0 L (20-40) % Whitley % (Auto) 6.1 (2-11) % Eos % (Auto) 0.3 (0-4) % Baso % (Auto) 0.3 (0-2) % Lymph # (Auto) 1.1 L (1.2-4.9) X10*3/uL Whitley # (Auto) 0.6 (0.1-1.2) X10*3/uL Eos # (Auto) 0.0 (0.0-0.4) X10*3/uL Baso # (Auto) 0.0 (0.0-0.2) X10*3/uL Abs Immat Gran (auto) 0.04 H (0.00-0.03) X10*3/uL Absolute Neuts (auto) 8.1 (2.0-8.3) x10*3/uL Absolute Nucleated RBC 0.000 (0.0-0.012) X10*3/uL Nucleated RBC % (auto) 0.0 (0.0-0.2) /100WBC Sodium 141 (135-145) mmol/L Potassium 3.9 (3.3-5.1) mmol/L Chloride 104 (96-108) mmol/L Carbon Dioxide 27 (22-29) mmol/L Anion Gap 14 (12-20) BUN 10 (9-16) mg/dL Creatinine 0.77 (0.5-1.4) mg/dL Estim Creat Clear Calc 74.5 Estimated GFR > 60 Random Glucose 116 H (60-115) mg/dL Calcium 10.0 (8.4-10.2) mg/dL Magnesium 2.1 (1.6-2.6) mg/dL Total Bilirubin 0.5 (0.0-1.0) mg/dL AST 29 (5-31) U/L ALT 19 (0-31) U/L Alkaline Phosphatase 93 (39-117) U/L Total Protein 8.2 H (6.5-8.0) g/dL Albumin 4.3 (3.5-5.0) g/dL Urine Color Yellow Urine Appearance Clear Urine pH 7.0 (5.0-9.0) Ur Specific [place] 1.010 (1.005-1.025) Urine Protein Negative (Neg-Trace) mg/dL Urine Glucose (UA) Negative (Negative) mg/dL Urine Ketones Negative (Negative) mg/dL Urine Blood Negative (Negative) Urine Nitrite Negative (Negative) Ur Leukocyte Esterase Negative (Negative) Influenza Type A (PCR) POSITIVE A (Negative) Influenza Type B (PCR) NEGATIVE (Negative) RSV RNA Qual (PCR) NEGATIVE (Negative) SARS-CoV-2 RNA (RT-PCR) NEGATIVE (Negative) Discharge Plan Discharge Clinical Impression: Influenza Patient Disposition: Home, Self-Care Instructions: Influenza (ED) Additional Instructions: You were found to be positive for influenza. See home care instructions. The rest of your screening labs were normal, including your urinalysis, you do not have a urinary tract infection. You can use [id number] ibuprofen 600 mg taken every 6 hours with food, with [id number] Tylenol 1000 mg taken every 8 hours, for fever, body ache and headache. Uses Zofran as needed for nausea. Follow up with your primary care provider as needed. Prescriptions: New ondansetron HCl 4 mg tablet 4 mg PO Q8H PRN (Reason: nausea and vomiting) Qty: 10 0RF No Action naproxen 500 mg tablet 500 mg PO BID Qty: 60 3RF sertraline 50 mg tablet 50 mg PO DAILY 90 Days Qty: 90 2RF (DME) blood pressure monitor [Blood Pressure Kit] Kit See Rx Instructions .ROUTE .MEDSUPPLY Qty: 1 0RF Rx Instructions: As directed fluticasone propionate [Flonase Allergy Relief] 50 mcg/actuation spray,suspension 2 spray intranasal DAILY Qty: 16 0RF Rx Instructions: administer into each nostril cholecalciferol (vitamin D3) 50 mcg (2,000 unit) capsule 50 mcg PO DAILY 90 Days Qty: 90 3RF simvastatin 10 mg tablet 10 mg PO BEDTIME Qty: 90 1RF meclizine 25 mg tablet 25 mg PO TID PRN (Reason: dizziness) Qty: 30 0RF losartan 25 mg tablet 25 mg PO DAILY Qty: 90 3RF hydrochlorothiazide 25 mg tablet 25 mg PO DAILY Qty: 90 2RF clotrimazole 1 % cream 1 appl topical BID 28 Days Qty: 45 0RF nitrofurantoin monohyd/m-cryst [Macrobid] 100 mg capsule 100 mg PO Q12H 7 Days Qty: 14 0RF Rx Instructions: must administer with a meal/food Stand Alone Forms: Work/School Release Interventions: ED Discharge Assessment Last Done: 01/11/25 20:32 Discharge Date/Time: 01/11/25 20:32 Print Language: Amharic
[2025-01-11 16:36] LABS: MANUAL DIFF FLAG NO
[2025-01-11 16:38] LABS: Basophils Percent Auto 0.3 % (0-2); Eosinophils Percent Auto 0.3 % (0-4); Hematocrit 42.9 % (37.0-47.0); Hemoglobin 14.4 g/dl (12.0-16.0); Imm Gran Abs Auto 0.04 X10*3/uL (0.00-0.03); Imm Gran Pct Auto 0.4 % (0.0-0.4); Lymphocytes Absolute Auto 1.1 X10*3/uL (1.2-4.9); Mean Corpuscular HGB Conc 33.6 g/dl (31.0-35.0); Mean Corpuscular Hemoglobin 26.7 pg (27.0-33.0); Mean Corpuscular Volume 79.4 fL (80.0-98.0); Mean Platelet Volume 11.7 fL (9.4-12.3); Monocytes Absolute Auto 0.6 X10*3/uL (0.1-1.2); Monocytes Percent Auto 6.1 % (2-11); Neutrophils Absolute Auto 8.1 x10*3/uL (2.0-8.3); Neutrophils Percent Auto 81.9 % (45-73); Platelet Count 300 X10*3/uL (160-400); Red Cell Distribution Width 14.1 % (11.0-16.0); White Blood Count 9.9 X10*3/uL (4.8-10.8)
[2025-01-11 16:39] LABS: Appearance Urine Clear; Color Urine Yellow; Glucose Urine UA Negative (Negative); Leukocyte Esterase Urine Negative (Negative); Nitrite Urine Negative (Negative); Urine Blood Negative (Negative); Urine Ketones Negative (Negative); Urine Protein Negative (Neg-Trace)
[2025-01-11 17:02] LABS: Alanine Aminotransferase 19 U/L (0-31); Albumin Level 4.3 g/dL (3.5-5.0); Alkaline Phosphatase 93 U/L (39-117); Anion Gap 14 (12-20); Aspartate Amino Transferase 29 U/L (5-31); Bilirubin Total 0.5 mg/dL (0.0-1.0); Blood Urea Nitrogen 10 mg/dL (9-16); Carbon Dioxide 27 mmol/L (22-29); Chloride 104 mmol/L (96-108); Creatinine Clr Calc Pharmacy 74.5; Estimated Glomerular Filt Rate > 60; Glucose Random 116 mg/dL (60-115); Magnesium 2.1 mg/dL (1.6-2.6); Potassium 3.9 mmol/L (3.3-5.1); Sodium 141 mmol/L (135-145); Total Protein 8.2 g/dL (6.5-8.0)
[2025-01-11 17:16] LABS: Influenza A PCR POSITIVE (Negative); Influenza B PCR NEGATIVE (Negative); Resp Syncy Virus RNA Qual PCR NEGATIVE (Negative); SARS COV2 PCR INHOUSE NEGATIVE (Negative)
[2025-01-11] MEDS: Ondansetron ODT 8 MG TAB.RAPDIS TRANSLINGU (20:29)
[2025-01-11 20:30] VITALS: BP 111/73; PULSE 98; RESP 16; TEMP 37.5; O2SAT 97
--- NOTE | 2025-01-11 20:31 | PC.NURSE ---
Pt reeval by Pit provider, medicated per MAR and cleared for dc home.
[2025-01-11 20:32] VITALS: BP 111/73; PULSE 98; RESP 16; TEMP 37.5; O2SAT 97
== END 2025-01-11 20:32 | disposition home or self-care (01) ==
PROVIDERS: Physician Assistant Medical; Emergency Provider Emergency Medicine Emergency Medical Services; PCP Internal Medicine
DX: J10.1 Influenza due to other identified influenza virus with other respiratory manifestations (principal); R11.2 Nausea with vomiting, unspecified; R51.9 Headache, unspecified; M79.10 Myalgia, unspecified site; Z03.818 Encounter for observation for suspected exposure to other biological agents ruled out
CPT/HCPCS: 0241U; 80053; 81003; 83735; 85025; 99283; 99284

== ENCOUNTER 2025-02-10 10:35 | Outpatient (AMB) | payer OTHER, SELFPAY ==
--- NOTE | 2025-02-10 10:49 | A.OFFPC_ITS ---
Vital Signs 02/10/25 10:50 Height 5 ft 3 in Weight 176 lb BMI 31.2 BP 132/82 Blood Pressure Location Lt brachial Position Sitting Pulse 91 Pulse Source Pulse Oximeter Temp 97.5 F Temp Source Temporal Artery Scan Pulse Oximetry (%) 98 Oxygen Delivery Method Room Air Intake Visit Reasons: [facility] [place] flu/cold Intake Note: Patient is here to follow-up after a visit the emergency department at [facility] [place] 01/11/25 Solar Project Coordination Specialist Required: No Heel Slicker: Not Required per policy Accompanied by: Self / Same As Patient Allergies lisinopril Adverse Reaction (Intermediate, Verified 02/10/25 11:14) Nausea Medication List - Last Reconciled 02/10/25 by Brit Wisdom PA-C blood pressure monitor (Blood Pressure Kit) As directed cholecalciferol (vitamin D3) 50 mcg PO DAILY 90 days clotrimazole 1% 1 appl topical BID 4 weeks fluticasone propionate 50 mcg/actuation (Flonase Allergy Relief) 2 sprays intranasal DAILY hydrochlorothiazide 25 mg PO DAILY losartan 25 mg PO DAILY meclizine 25 mg PO TID PRN naproxen 500 mg PO BID ondansetron HCl 4 mg PO Q8H PRN sertraline 50 mg PO DAILY 90 days simvastatin 10 mg PO BEDTIME Tobacco use date assessed: 02/10/25 Dental Screening Dental Screen Date: 01/04/25 HPI [facility] [place] flu/cold HPI Details 64-year-old female with past medical his tory of hypertension, obesity, GERD, hypercholesterolemia, overactive bladder, depression last seen 12/2024 coming in for hospital discharge follow up.? In review of the notes, patient was seen in [facility] [place] 01/11/2025 for upper respiratory symptoms influenza a positive discharged home with Zofran and Tylenol. Presenting with a headache and dizziness. Post-influenza, the patient experiences headaches that are mild and located in the front of her head, with a daily frequency, particularly in the morning. Dizziness occurs daily, characterized by intermittent balance disturbances but not as vertigo. She reported insufficient fluid intake and is aware of dehydration, drinking approximately two bottles of water most days. The patient's prescription glasses are outdated, with new ones ordered but not yet received, possibly contributing to headaches. No current pain or significant sinus-related issues are noted. [facility] Medical History Enlarged thyroid Colon cancer screening Annual physical exam Seasonal allergies Overactive bladder Hypercholesterolemia Hypertension GERD (gastroesophageal reflux disease) Incisional hernia Vitamin D deficiency Obesity (BMI 30-39.9) Left adnexal tenderness COVID-19 Corneal transplant infection of left eye HTN (hypertension) Surgical History History of salpingoophorectomy History of corneal transplant History of tubal ligation Previous section Family History Father Myocardial infarction Hypertension CVD (cardiovascular disease) Mother S/P CABG x 1 Diabetes Hypertension CVD (cardiovascular disease) Sister CVD (cerebrovascular disease) Brother Stroke Brain cancer Social History Housing: Apartment Alcohol intake: never Patient Tobacco Use Status: Never used Tobacco e-Cigarette/Vaping Use: Never Used Second Hand Smoke Exposure: No service: No Current occupational status: employed 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 Gabriel Estevez, Esthela Ritter, Wali Mayorga and colleagues, with an educational [place] from [employer]. Review of Systems Const Denies body aches, Denies chills, Denies fever(s), Reports headache(s) and Denies poor appetite Eyes Reports no additional complaints ENT Denies dysphagia, Denies dizziness, Reports headache(s) and Denies odynophagia Card Denies chest pain, Denies syncope, Denies edema, Denies irregular heart rhythm, Reports lightheadedness (Occasional) and Denies dyspnea Resp Denies cough and Denies dyspnea GI Denies abdominal pain, Denies constipation, Denies dysphagia, Denies diarrhea, Denies nausea, Denies odynophagia and Denies vomiting Reports no additional complaints Musc Reports no additional complaints and Denies abnormal gait Skin/Breast Reports system reviewed and no additional complaints, except as documented Neuro Denies abnormal gait, Denies dizziness, Denies syncope and Reports headache(s) Psych Reports no additional complaints Physical exam (Primary Care) Vital Signs: Last Vital Signs Temp 97.5 F 02/10/25 10:50 Pulse 91 02/10/25 10:50 BP 132/82 02/10/25 10:50 Pulse Ox 98 02/10/25 10:50 Oxygen Delivery Method Room Air 02/10/25 10:50 BMI result Body Mass Index 31.2 Tobacco/Smoking Status: Tobacco use Status Tobacco use date assessed 02/10/25 02/10/25 10:54 Patient Tobacco Use Status Never used Tobacco 02/10/25 10:54 e-Cigarette/Vaping Use Never Used 02/10/25 10:54 Thrive Assessment: Date of Thrive Assessment Date Thrive assessed 01/04/25 02/10/25 10:54 Const General: cooperative, healthy appearing, comfortable and no acute distress Orientation/consciousness: patient oriented x3 HENMT Head: Yes normocephalic Ears: hearing grossly normal bilaterally, TM's normal bilaterally and EAC's normal General nose exam: Normal external nose present Face and sinus: Yes normal facial exam and Yes sinuses nontender Throat: Yes posterior oropharynx normal Eyes General: appearance normal, both eyes and all related structures Conjunctivae: conjunctivae normal Pupils: Equal, round and reactive pupils present Neck Neck: Yes full ROM and Yes no lymphadenopathy Resp Effort & Inspection: normal respiratory effort Auscultation: clear to auscultation bilaterally, no crackles, no rales, no rhonchi and no wheezes Cardio Rate: regular rate Rhythm: regular rhythm Skin General skin exam: no rashes or lesions noted Neuro General: patient oriented x3 Cranial nerves: Yes Facial sensation intact/muscles of mastication intact, Yes Equal, round and reactive pupils present, Yes Bilaterally intact EOM present, Yes Nystagmus not present, Yes Normal facial strength present, Yes Ability to bilaterally rotate head present and Yes Ability to bilaterally elevate shoulders present Cognition (Neuro): normal cognition Gait exam (Neuro): Normal gait present Extrem General: Yes normal to inspection, Yes full ROM and No edema Psych Affect: normal affect Attitude: cooperative Insight: Good insight present (Psych) Judgement: Good judgement present (Psych) Coding Level of Care Code Est Pt Level 3 (13974) Diagnoses Essential hypertension I10 Headache R51.9 Lightheadedness R42 Assessment & Plan Assessment & Plan (1) Hypertension: Code(s): I10 - Essential (primary) hypertension Category: Medical Plan: Continue on current blood pressure medication. Avoid salt intake and encourage healthy diet and regular exercise. (2) Headache: Code(s): R51.9 - Headache, unspecified Category: Medical Plan: To alleviate the patient's daily headaches and dizziness, increasing hydration to four to five bottles of water per day is recommended to address potential dehydration. Quenching probable allergy sources with Flonase, plus a daily allergy medication, should mitigate any allergic contributions. The updated glasses are anticipated to reduce visual-related headache triggers once received. The patient is to report worsening symptoms or lack of improvement post-interventions. Reviewed red flag symptoms of headaches and when to present for re-evaluation. Advised patient if symptoms do not improve or if they worsen to reach out to the office (3) Lightheadedness: Code(s): R42 - Dizziness and giddiness Category: Medical Plan: See above plan. Patient is neurologically intact. She states the lightheadedness is typically related to the headaches plan to treat headaches. Reviewed with patient red flag symptoms and when to present for re-evaluation Plan This note was constructed using voice recognition software. While every effort has been made to ensure accuracy and girl friday, still areas may have been included sometimes these areas may affect the content or meeting of the given symptoms. Total time spent caring for the patient today was 20 minutes. This includes time spent before the visit reviewing the chart, time spent during the visit, and time spent after the visit and documentation. Patient was informed and verbally consented to the use of an ambient scribe for clinic note documentation during this visit. Medications: New fexofenadine (Liana Allergy) 180 mg PO DAILY 90 tabs 0RF Refilled fluticasone propionate 50 mcg/actuation (Flonase Allergy Relief) administer into each nostril 2 sprays intranasal DAILY 16 grams 0RF R09.81 - Nasal congestion
[2025-02-10 10:50] VITALS: BP 132/82; PULSE 91; TEMP 36.4; O2SAT 98; BMI 31.2
--- OUTSIDE RECORDS SUMMARY | 2025-02-10 12:31 | XMS_ITS | Clinical Summary ---
Author Organization [facility] Address [address] [place] [address] Care Team Providers Care [employer] Social Science Teacher Name Role Phone Unavailable Primary Care Provider [...] Hypertension 03/09/2024 Mass of left ovary 03/09/2024 Social History Tobacco Use Types Packs/Day Years [...] Procedure Name Priority Date/Time Associated Diagnosis Comments PROPHYLAXIS - ADULT Routine 08/10/2024 1 1:00 AM EDT Dental calculus Dental caries INTRAORAL - COMPLETE SERIES OF RADIOGRAPHIC IMAGES Routine 08/10/2024 11:00 AM EDT Dental calculus Dental caries COMPREHENSIVE ORAL EVALUATION - NEW OR ESTABLISHED PATIENT Routine 08/10/2024 11:00 AM EDT Dental calculus Dental caries from Last 3 Months or Most Recently Relevant to Health Maintenance Insurance [facility] MEDICAID STAND ADULT
== END 2025-02-10 11:42 | disposition home or self-care (01) ==
LOC: HO.HMCH 10:36
PROVIDERS: PCP Internal Medicine
DX: I10 Essential (primary) hypertension (principal); R51.9 Headache, unspecified; R42 Dizziness and giddiness

== ENCOUNTER → 2025-02-10 10:35 | Outpatient (BNVA) | payer OTHER, SELFPAY | PROVIDERS: PCP Internal Medicine | DX: I10 Essential (primary) hypertension (principal); R51.9 Headache, unspecified; R42 Dizziness and giddiness | CPT/HCPCS: 99212 ==

== ENCOUNTER 2025-03-08 10:01 | Outpatient (REF) | payer SELFPAY ==
--- OUTSIDE RECORDS SUMMARY | 2025-03-08 10:28 | XMS_ITS | Clinical Summary ---
Author Organization [employer] [facility] Address [address] [place] [address] Care Team Providers Care Rapid Transit Operator Name Role Phone Unavailable Primary Care Provider [...] patient's age to complete this topic Meningococcal B Vaccine Aged Out No l onger eligible based on patient's age to complete [...] Most Recently Relevant to Health Maintenance Insurance [facility] MEDICAID STAND ADULT
== END 2025-03-08 10:02 | disposition home or self-care (01) ==
LOC: HO.MAMMO 10:01
PROVIDERS: PCP Internal Medicine; Visit Provider Internal Medicine
DX: Z12.31 Encounter for screening mammogram for malignant neoplasm of breast (principal)
CPT/HCPCS: 77063; 77067

== ENCOUNTER → 2025-03-08 10:15 | Outpatient (BNV) | payer SELFPAY | PROVIDERS: PCP Internal Medicine; Visit Provider Internal Medicine | DX: Z12.31 Encounter for screening mammogram for malignant neoplasm of breast (principal) | CPT/HCPCS: 77063; 77067 ==

== ENCOUNTER 2025-05-04 12:53 | Outpatient (REF) | payer OTHER, SELFPAY ==
--- NOTE | ~2025-05-04 | MM_ITS ---
EXAMINATION: MM DIAGNOSTIC DIGITAL BREAST TOMOSYNTHESIS, RIGHT Limited right breast ultrasound. CLINICAL INFORMATION: Call back from screening for focal asymmetry in the upper outer right breast posterior depth. COMPARISON: Mammography: [facility] on PACS. TECHNIQUE: Digital breast tomosynthesis is performed in both the craniocaudal and mediolateral oblique views along with computer-aided detection (CAD). Synthesized 2D images are generated from the tomosynthesis. FINDINGS: There are scattered areas of fibroglandular density (ACR BI-RADS breast composition Category b). Focal asymmetry in the upper outer breast far posterior depth persist on additional imaging projections. No suspicious calcifications or other abnormal findings. Targeted color Doppler ultrasound scanning in the right breast at 9:00 12 cm from nipple demonstrates 2 adjacent hypoechoic oval circumscribed probable complicated cysts versus solid masses measuring 6 x 7 x 3 mm and 2 x 2 x 2 mm. There is no internal vascular flow. These are probable correlate for the focal asymmetry on mammography. MM/MM tomosynthesis added views R IMPRESSION: Focal asymmetry in the upper-outer breast with correlating probable complicated cyst at 9:00 12 cm from the nipple on ultrasound. Probably benign. Recommend 6 month follow-up for further evaluation of stability. ASSESSMENT: BI-RADS BI-RADS 3 - Probably benign finding(s) - 6 month follow-up suggested RECOMMENDATION: 6 Month F/U Results were provided to the patient at time of visit by the technologist. This patient's information was entered into a reminder system with a target due date for their next mammogram. Electronically signed by: Tami Avelar DO 05/04/2025 02:23 PM EDT
--- OUTSIDE RECORDS SUMMARY | 2025-05-04 14:06 | XMS_ITS | Clinical Summary ---
Author Organization [employer] [facility] Address [address] [place] [address] Care Team Providers Care Lock Expert Name Role Phone Unavailable Primary Care Provider [...] Panel 1961 SDOH Screening 1961 Sigmoidoscopy 1961 Disability Screening 1961 Alcohol/Substance Use Screening 1973 Hepatitis C Screening 1979 Pap Smear 1982 Cervical Cancer Screening 1991 HPV/Cotest 1991 Mammogram 2001 Pneumococcal Vaccine: 50+ Years (1 of 1 - PCV) 2011 Zoster Vaccines (1 of 2) 2011 DTaP/Tdap/Td Vaccines (1 - Tdap) 08/22/2022 08/21/2022 COVID-19 Vaccine (1 - season) 2024 Dental Oral Exam 02/09/2025 08/10/2024 Dental Prophylaxis 02/09/2025 08/10/2024 Influenza Vaccine (#1) 2025 , 07/20/2022, 08/03/2021, Additional history exists Dental X-Ray: [facility] 08/11/2025 08/10/2024, 02/18 Tobacco [...] Most Recently Relevant to Health Maintenance Insurance [facility] MEDICAID STAND ADULT
== END 2025-05-04 12:54 | disposition home or self-care (01) ==
LOC: HO.MAMMO 12:53
PROVIDERS: PCP Internal Medicine; Visit Provider Internal Medicine
DX: N64.89 Other specified disorders of breast (principal)
CPT/HCPCS: 76642; 77061; 77065

== ENCOUNTER → 2025-05-04 13:30 | Outpatient (BNV) | payer OTHER, SELFPAY | PROVIDERS: PCP Internal Medicine; Visit Provider Internal Medicine | DX: N60.01 Solitary cyst of right breast (principal) | CPT/HCPCS: 76642; 77061; 77065 ==

== ENCOUNTER 2025-06-24 07:07 | Outpatient (REF) | payer OTHER, SELFPAY ==
--- OUTSIDE RECORDS SUMMARY | 2025-06-24 07:10 | XMS_ITS | Clinical Summary ---
Author Organization [employer] Address [address] [facility] [address] [place] [address] Care Team Providers Care Panel Machine Tender Name Role Phone Unavailable Primary Care Provider [...] A DAY NEEDED FOR DIZZINESS 4 Active fexofenadine (Liana) 180 MG tablet Take 1 tablet by mouth Once per day. 5 Active fluticasone (Flonase) 50 MCG/ACT nasal spray Administer 2 sprays into each nostril Once per day. 5 Active ondansetron (Zofran) 4 MG tablet take 1 tablet by mouth every 8 hours as needed for nausea and vomiting 5 Active Active Problems Problem Noted Date Diagnosed Date Hypertension 03/09/2024 Mass of left ovary 03/09/2024 Encounters Date Type Department Care Team Description 05/31/2025 3:00 PM EDT Office Visit [facility] [address] [place] [address] Odin Roger Dental calculus (Primary Dx) from Last 3 Months Social [...] Sign Reading Time Taken Comments Blood Pressure 116/66 05/31/2025 2:50 PM EDT Pulse 66 05/31/2025 2:50 PM EDT Temperature - - Respiratory Rate - - Oxygen Saturation - - Inhaled Oxygen Concentration - - Weight - - Height - - Body Mass Index - - Plan of Treatment Upcoming Encounters Date Type Department Care Team (Late st Contact Info) Description 07/13/2025 2:00 PM EDT Office Visit [facility] [address] [place] [address] Luis Miguel Islas, AVEL [address] [place] [address] Health Maintenance Due Date Last Done Comments [...] 08/22/2022 08/21/2022 COVID-19 Vaccine (1 - season) 2025 Influenza Vaccine (#1) 2025 , 08/27/2023, 07/20/2022, Additional history exists Dental X-Ray: Bitewings 08/11/2025 08/10/2024, 02/18 Dental Oral Exam 12/02/2025 05/31/2025, 08/10/2024 Dental Prophylaxis 12/02/2025 05/31/2025, 08/10/2024 Tobacco Screening 06/22/2026 06/22/2025 Dental X-Ray: Full Mouth 08/11/2027 08/10/2024 RSV [...] this topic Meningococcal Vaccine Aged Out No dilalo janis eligible based on patient's age to complete this topic RSV under 20 months Aged Out No longe r eligible based on patient's age to complete this topic Rotavirus Vaccines Aged Out No longer eligible based on patient's age to complete this topic Procedures Procedure Name Priority Date/Time Associated Diagnosis Comments PERIODIC ORAL EVALUATION - ESTABLISHED PATIENT Routine 05/31/2025 3:00 PM EDT ORAL HYGIENE INSTRUCTIONS Routine 05/31/2025 3:00 PM EDT PROPHYLAXIS - ADULT Routine 05/31/2025 3 :00 PM EDT CASE PRESENTATION, DETAILED AND EXTENSIVE TREATMENT PLANNING Routine 05/31/2025 3:00 PM EDT INTRAORAL - COMPLETE SERIES OF RADIOGRAPHIC IMAGES Routine 08/10/2024 11:00 AM EDT Dental calculus Dental caries from Last 3 Months or Most Recently Relevant to Health Maintenance Insurance [facility] MEDICAID STAND ADULT
[2025-06-24 08:07] LABS: Hemoglobin A1C 137.3667 umol/L; Total Hemoglobin (HGBA1C) 3407.2154 umol/L
[2025-06-24 08:28] LABS: Alanine Aminotransferase 22 U/L (0-31); Albumin Level 4.2 g/dL (3.5-5.0); Alkaline Phosphatase 79 U/L (39-117); Anion Gap 11 (12-20); Aspartate Amino Transferase 25 U/L (5-31); Blood Urea Nitrogen 17 mg/dL (9-16); Calcium 9.8 mg/dL (8.4-10.2); Carbon Dioxide 31 mmol/L (22-29); Chloride 104 mmol/L (96-108); Cholesterol 229 mg/dL (<200); Estimated Glomerular Filt Rate > 60; HDL Cholesterol 37 mg/dL (>40); Potassium 4.3 mmol/L (3.3-5.1); Sodium 142 mmol/L (135-145); Total Protein 7.4 g/dL (6.5-8.0); Triglycerides 160 mg/dL (<150)
== END 2025-06-24 07:08 | disposition home or self-care (01) ==
LOC: HO.LAB 07:07
PROVIDERS: PCP Internal Medicine; Visit Provider Internal Medicine
DX: I10 Essential (primary) hypertension (principal); E78.00 Pure hypercholesterolemia, unspecified; R73.02 Impaired glucose tolerance (oral); E66.9 Obesity, unspecified; K21.9 Gastro-esophageal reflux disease without esophagitis; F33.9 Major depressive disorder, recurrent, unspecified; Z68.31 Body mass index [BMI] 31.0-31.9, adult; Z79.899 Other long term (current) drug therapy
CPT/HCPCS: 36415; 80053; 80061; 83036; 99212

== ENCOUNTER 2025-06-24 14:30 | Outpatient (AMB) | payer OTHER, SELFPAY ==
[2025-06-24 14:42] VITALS: BP 132/68; PULSE 71; O2SAT 98; BMI 31.7
--- NOTE | 2025-06-24 14:42 | A.OFFPC_ITS ---
Vital Signs 06/24/25 14:42 Height 5 ft 3 in Weight 179 lb BMI 31.7 BP 132/68 Blood Pressure Location Lt brachial Position Sitting Pulse 71 Pulse Source Pulse Oximeter Pulse Oximetry (%) 98 Oxygen Delivery Method Room Air Intake Visit Reasons: cholesterol , FH CAD Allergies lisinopril Adverse Reaction (Intermediate, Verified 06/24/25 14:42) Nausea Medication List - Last Reconciled 06/24/25 by Cindi Torres MD blood pressure monitor (Blood Pressure Kit) As directed cholecalciferol (vitamin D3) 50 mcg PO DAILY 90 days clotrimazole 1% 1 appl topical BID 4 weeks fexofenadine (Liana Allergy) 180 mg PO DAILY fluticasone propionate 50 mcg/actuation (Flonase Allergy Relief) 2 sprays intranasal DAILY hydrochlorothiazide 25 mg PO DAILY losartan 25 mg PO DAILY meclizine 25 mg PO TID PRN ondansetron HCl 4 mg PO Q8H PRN sertraline 50 mg PO DAILY 90 days simvastatin 10 mg PO BEDTIME Tobacco use date assessed: 02/10/25 Dental Screening Dental Screen Date: 01/04/25 [facility] Medical History Enlarged thyroid Colon cancer screening Annual physical exam Seasonal allergies Overactive bladder Hypercholesterolemia Hypertension GERD (gastroesophageal reflux disease) Incisional hernia Vitamin D deficiency Obesity (BMI 30-39.9) Left adnexal tenderness COVID-19 Corneal transplant infection of left eye HTN (hypertension) Surgical History History of salpingoophorectomy History of corneal transplant History of tubal ligation Previous section Family History Father Myocardial infarction Hypertension CVD (cardiovascular disease) Mother S/P CABG x 1 Diabetes Hypertension CVD (cardiovascular disease) Sister CVD (cerebrovascular disease) Brother Stroke Brain cancer Social History Housing: Apartment Alcohol intake: never Patient Tobacco Use Status: Never used Tobacco Tobacco use type: Cigarette e-Cigarette/Vaping Use: Never Used Second Hand Smoke Exposure: No service: No Current occupational status: employed 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 1. Little interest or pleasure in doing things: more than half the days 2. Feeling down, depressed, or hopeless: several days 3. Trouble falling or staying asleep, or sleeping too much: more than half the days 4. Feeling tired or having little energy: several days 5. Poor appetite or overeating: several days 6. Feeling bad about yourself - or that you are a failure or have let yourself or your family down: more than half the days 7. Trouble concentrating on things, such as reading the newspaper or watching television: nearly every day 8. Moving or speaking so slowly that other people could have noticed. Or the opposite - being so fidgety or restless that you have been moving around a lot more than usual: more than half the days 9. Thoughts that you would be better off or of hurting yourself in some way: not at all Total score: 14 Depression Screening Interpretation: Positive Depression Screening Done: Yes Source: Developed by Drs. Gabriel Estevez, Esthela Ritter, Wali Mayorga and colleagues, with an educational montana from [email or web address]. Thrive Questionnaire Date Thrive assessed: 01/04/25 I am a: Patient What is your living situation today?: I have a steady place to live Within the past 12 months, did the food you bought not last and you didn't have the money to get more?: Sometimes True Within the past 12 months, did you worry whether your food would run out before you got money to buy more?: Sometimes True Do you have trouble paying for medicines?: I choose not to answer this question Do you have trouble getting transportation to medical appointments?: No Do you have trouble paying your heating and electricity bill?: I choose not to answer this question Do you have trouble taking care of your child, family member or friend?: I choose not to answer this question Do you have trouble with day-to-day activities such as bathing, preparing meals, shopping, managing finances, etc.?: I choose not to answer this question Are you currently unemployed and looking for a job?: I choose not to answer this question Are you interested in more education?: No Please select the resources that you would like help with: None Currently or been in a relationship where the following occur: I choose not to answer THRIVE Score: 2 AUDIT C Alcohol Use Questionnaire (AUDIT-C) 1. How often do you have a drink containing alcohol?: Never 3. How often do you have six or more drinks on one occasion?: Never Total Score: 0 HALEIGH-7 AMB Questionnaire HALEIGH-7 Date HALEIGH - 7 assessed: 01/04/25 Feeling nervous, anxious, or on edge: 1 = Several days Not being able to stop or control worryin = Several days Worrying too much about different things: 2 = More than half the days Trouble relaxin = More than half the days Being so restless that it is hard to sit still: 1 = Several days Becoming easily annoyed or irritable: 1 = Several days Source: Developed by Drs. Gabriel Estevez, Esthela Ritter, Wali Mayorga and colleagues, with an educational montana from [email or web address]. Physical exam (Primary Care) Vital Signs: Last Vital Signs Pulse 71 06/24/25 14:42 BP 132/68 06/24/25 14:42 Pulse Ox 98 06/24/25 14:42 Oxygen Delivery Method Room Air 06/24/25 14:42 BMI result Body Mass Index 31.7 Tobacco/Smoking Status: Tobacco use Status Tobacco use date assessed 02/10/25 06/24/25 14:47 Patient Tobacco Use Status Never used Tobacco 06/24/25 14:47 Tobacco use type Cigarette 06/24/25 14:47 e-Cigarette/Vaping Use Never Used 06/24/25 14:47 PHQ-9: PHQ-9 Score PHQ-9: Total score 14 06/24/25 15:20 Depression Screening Interpretation: Positive Thrive Assessment: Date of Thrive Assessment Date Thrive assessed 01/04/25 06/24/25 14:47 Currently or been in a relationship where the following occur: I choose not to answer Const General: alert; No acute distress Eyes Conjunctivae: conjunctivae normal Resp Auscultation: clear to auscultation bilaterally Cardio Rate: regular rate Rhythm: regular rhythm GI Inspection: Yes normal to inspection Extrem General: Yes normal to inspection and No edema Coding Level of Care Code Est Pt Level 4 (11573) Complex EM visit Add On G2211 Diagnoses Essential hypertension I10 Hypercholesterolemia E78.00 Impaired glucose tolerance R73.02 Obesity (BMI 30-39.9) E66.9 Gastroesophageal reflux disease without esophagitis K21.9 Esophagitis presence: without esophagitis Recurrent major depression F33.9 Assessment & Plan Assessment & Plan (1) Hypertension: Code(s): I10 - Essential (primary) hypertension Category: Medical Plan: Continue with blood pressure medication. Decrease salt intake and exercise patient is on hydrochlorothiazide and losartan (2) Hypercholesterolemia: Code(s): E78.00 - Pure hypercholesterolemia, unspecified Category: Medical Plan: Avoid fried foods, chicken skin, eggs, butter margarine, pastries and meat. Be it pork or beef they have a lot of cholesterol on simvastatin 10 mg once a day (3) Impaired glucose tolerance: Code(s): R73.02 - Impaired glucose tolerance (oral) Category: Medical Plan: Decrease the amount of carbohydrate intake, pasta, bread, rice and potatoes are all sugar and that is aside from all the sweet stuff, remember that fruits are good but they are Sweet also. (4) Obesity (BMI 30-39.9): Code(s): E66.9 - Obesity, unspecified Category: Medical Plan: Diet and exercise (5) GERD (gastroesophageal reflux disease): Code(s): K21.9 - Gastro-esophageal reflux disease without esophagitis Category: Medical Qualifiers: Esophagitis presence: without esophagitis Qualified Code(s): K21.9 - Gastro-esophageal reflux disease without esophagitis Plan: Avoid the foods that causes that usually spicy foods, tomato products, juices, coffee, soda and foods that your sensitive to. After eating do not lie down, allow 3-4 hours before in lie down. And keep the head of bed above 30 degrees to avoid the acid from going up. (6) Recurrent major depression: Comment: [facility] Code(s): F33.9 - Major depressive disorder, recurrent, unspecified Category: Medical Plan: Continue with counseling and therapy on sertraline 50 mg once a day Plan History of Present Illness The patient is a 64-year-old female presenting for a follow-up visit. She has a history of Gastroesophageal Reflux Disease (GERD), hypertension, hypercholesterolemia, impaired glucose tolerance, and recurrent major depressive disorder. Her last colonoscopy in August 2022 revealed a tubular adenoma of the colon. In December 2023, her blood work showed normal blood count with microcytosis, normal electrolytes, good renal function, and a hemoglobin A1c of 5.8%. Her LDL cholesterol was elevated at 160 mg/dL, and triglycerides were approximately 160 mg/dL. Thyroid function tests were normal. The patient is currently on hydrochlorothiazide and losartan for hypertension, simvastatin for hypercholesterolemia, and sertraline for depression. She also uses vitamin D, Liana, Flonase, and meclizine as needed. She had an ER visit in December for influenza. The patient reports occasional non- adherence to her medication regimen, particularly simvastatin, which she sometimes forgets to take. Health Maintenance - Colonoscopy performed in August 2022, revealing tubular adenoma. - Shingles vaccination discussed as a preventative measure. Social History - Family Status: Lives with children, reports occasional stress related to fam pk dynamics. - Exercise: Attempts to stay active and busy. - Nutritional Intake: Reports recent consumption of high-sugar foods, including candy and brownies. Review of Systems - General: Reports feeling stressed due to family dynamics. - Endocrine: Denies symptoms of thyroid dysfunction. - Cardiovascular: Denies chest pain or palpitations. - Gastrointestinal: Reports occasional dietary indiscretions affecting glucose levels. Physical Exam Results - Labs: Normal blood count with microcytosis, normal electrolytes, good renal function, hemoglobin A1c of 5.8%, LDL cholesterol 160 mg/dL, triglycerides 160 mg/dL, normal thyroid function tests. Plan Patient was informed and verbally consented to the use of an ambient scribe for clinic note documentation during this visit. 1. Gastroesophageal Reflux Disease (Gerd) The patient is advised to continue with current management strategies for GERD, including dietary modifications and medication adherence. 2. Hypertension The patient is currently on hydrochlorothiazide and losartan for hypertension management. 3. Hypercholesterolemia The patient is on simvastatin 10 mg daily; however, due to elevated LDL levels, adherence to medication and dietary modifications are emphasized. 4. Impaired Glucose Tolerance The patient is advised to monitor dietary intake, particularly sugar consumption, and to engage in regular physical activity to manage glucose levels. 5. Major Depressive Disorder, Recurrent The patient is advised to continue sertraline 50 mg daily and engage in counseling and therapy sessions. 6. Tubular Adenoma Of The Colon The patient is advised to follow up with regular colonoscopies as per guidelines. Discussion Notes During the visit, we discussed the importance of medication adherence, particularly for managing hypercholesterolemia and hypertension. We also reviewed the patient's recent lab results, emphasizing the need for dietary modifications to manage elevated LDL cholesterol and impaired glucose tolerance. The patient was informed about the benefits of the shingles vaccination and encouraged to consider it as a preventative measure. Patient Instructions - Continue taking all prescribed medications as directed. - Monitor dietary intake, especially sugar and cholesterol-rich foods. - Engage in regular physical activity to help manage glucose levels. - Consider receiving the shingles vaccination at a pharmacy. - Schedule a follow-up blood test in three months to monitor cholesterol and glucose levels. Orders: Orders Ferritin 3 Months R73.02 - Impaired glucose tolerance (oral) Thyroid Stimulating Hormone 3 Months R73.02 - Impaired glucose tolerance (oral) Free T4 (Free Thyroxine) 3 Months R73.02 - Impaired glucose tolerance (oral) Hemoglobin A1c 3 Months R73.02 - Impaired glucose tolerance (oral) Comprehensive Met. Panel 3 Months R73.02 - Impaired glucose tolerance (oral) Complete Blood Count Auto Diff 3 Months R73.02 - Impaired glucose tolerance (oral) IRON PROFILE 3 Months R73.02 - Impaired glucose tolerance (oral) Lipid Panel 3 Months E78.00 - Pure hypercholesterolemia, unspecified, R73.02 - Impaired glucose tolerance (oral) Medications: Refilled sertraline 50 mg PO DAILY 90 tabs 2RF 90 days F33.9 - Major depressive disorder, recurrent, unspecified
--- OUTSIDE RECORDS SUMMARY | 2025-06-24 15:48 | XMS_ITS | Clinical Summary ---
Author Organization [employer] Address [address] [facility] [address] [place] [address] Care Team Providers Care Tracer Clerk Name Role Phone Unavailable Primary Care Provider [...] Description 05/31/2025 3:00 PM EDT Office Visit [facility]ULT D[facility] [address] [place] [address] Odin Roger Dental calculus (Primary Dx) from [...] Description 07/13/2025 2:00 PM EDT Office Visit [facility] ADULT D[facility] [address] [place] [address] Luis Miguel Islas, AVEL [address] [place] [address] Health Maintenance Due Date Last Done Comments [...] Health Maintenance Insurance [facility]AL-[facility] MEDICAID STAND ADULT
== END 2025-06-24 15:34 | disposition home or self-care (01) ==
LOC: HO.HMCH 14:31
PROVIDERS: PCP Internal Medicine; Visit Provider Internal Medicine
DX: I10 Essential (primary) hypertension (principal); E78.00 Pure hypercholesterolemia, unspecified; E66.9 Obesity, unspecified; Z68.31 Body mass index [BMI] 31.0-31.9, adult; R73.02 Impaired glucose tolerance (oral); K21.9 Gastro-esophageal reflux disease without esophagitis; F33.9 Major depressive disorder, recurrent, unspecified

== ENCOUNTER 2025-10-06 13:08 | Outpatient (REF) | payer OTHER, SELFPAY ==
--- NOTE | ~2025-10-06 | US_ITS ---
EXAMINATION: US THYROID CLINICAL INFORMATION: Nontoxic signal thyroid nodule. COMPARISON: September 30, 2024 TECHNIQUE: Linear transducer grayscale and color Doppler examination with attention to the region of the thyroid. FINDINGS: SIZE: Measurements of the thyroid lobes and nodules are given in sagittal, anteroposterior and transverse dimensions respectively. Right Thyroid Lobe: 4.8 x 1.6 x 1.6 cm, volume 6.8 mL. Previous: 4.8 x 1.8 x 1.6 cm, volume: 6.2 cc. Parenchyma: The gland echotexture is homogeneous. Thyroid vascularity is normal. Left Thyroid Lobe: 4.5 x 1.6 x 1.1 cm, volume 4.3 mL. Previous: 4.3 x 1.1 x 1.4 cm, volume: 3.2 cc. Parenchyma: The gland echotexture is normal. Thyroid vascularity is . Isthmus: 0.2 cm in maximum AP dimension. Previous: 0.3 cm. Estimated total number of nodules greater than or equal to 1 cm: 1. Touch Up Painter nodules are described as follows: 1. Location: Midportion right lobe. Size: 1.0 x 0.9 x 0.6 cm, volume 0.29 mL. Previous: 0.9 x 0.5 x 1.0 cm, volume: 0.2 cc. Nodule characteristics: Composition: Solid (2). Echogenicity: Very hypoechoic (3). Shape: Not taller than wide (0). Margins: Smooth (0). Echogenic Foci: None (0). ACR TI-RADS total points: 5 ACR TI-RADS category: 4 NODES: No lymphadenopathy is seen in the tissue surrounding the thyroid gland. US/US thyroid IMPRESSION: ACR TI RADS category 4, right lobe. ACR TI-RADS RECOMMENDATION REFERENCE: Ultrasound-guided fine-needle aspiration, followup ultrasound, no further follow up. * TR1 (0 point) and TR2 (2 points): No FNA or follow up. * TR3 (3 points): FNA if more than or equal to 2.5 cm in maximum dimension, followup ultrasound in 1, 3 and 5 years if 1.5 to 2.4 cm in maximum dimension. * TR4 (4-6 points): FNA if more than or equal to 1.5 cm in maximum dimension, followup ultrasound in 1, 2, 3 and 5 years if 1 to 1.4 cm in maximum dimension. * TR5 (more than or equal to 7 points): FNA if more than or equal to 1 cm in maximum dimension, followup ultrasound every year for 5 years if 0.5 to 0.9 cm in maximum dimension. * TR3, TR4 or TR5 nodules that are below the size threshold for followup receive no follow up. Electronically signed by: Enrrique Rodríguez MD 10/06/2025 02:06 PM YUMIKO MARTINEZ
== END 2025-10-06 13:09 | disposition home or self-care (01) ==
LOC: HO.US 13:08
PROVIDERS: PCP Internal Medicine; Visit Provider Internal Medicine
DX: E04.1 Nontoxic single thyroid nodule (principal)
CPT/HCPCS: 76536

== ENCOUNTER → 2025-10-06 13:10 | Outpatient (BNV) | payer OTHER, SELFPAY | PROVIDERS: PCP Internal Medicine; Visit Provider Radiology Diagnostic Radiology | DX: E04.1 Nontoxic single thyroid nodule (principal) | CPT/HCPCS: 76536 ==

== ENCOUNTER 2025-10-07 09:04 | Outpatient (REF) | payer OTHER, SELFPAY ==
[2025-10-07 09:41] LABS: MANUAL DIFF FLAG NO
--- OUTSIDE RECORDS SUMMARY | 2025-10-07 10:14 | XMS_ITS | Clinical Summary ---
Author Organization [employer] Address [address] [facility] [address] [place] [address] Care Team Providers Care Harpooner Name Role Phone Unavailable Primary Care Provider [...] Encounters Date Type Department Care Team Description 09/24/2025 8:30 AM EST Office Visit [facility] ADULT D[facility] [address] [place] [address] Luis Miguel Islas DMD Full coverage crown needed for root canal-treated tooth (Primary Dx) 09/13/2025 3:30 PM EST Office Visit [facility] ADULT [facility] [address] [place] [address] Edenilson Romero, DDS Dental abscess (Primary Dx) 08/23/2025 3:00 PM EST Office Visit [facility]ULT [facility] [address] [place] [address] Edenilson Romero, DDS Dental calculus (Primary Dx) 08/03/2025 1:15 PM EDT Office Visit [facility] ADULT [facility] [address] [place] [address] Luis Miguel Islas DMD Loss of retention of dental crown (Primary Dx) 07/13/2025 2:00 PM EDT Office Visit [facility]ULT [facility] [address] [place] [address] Luis Miguel Islas DMD Dental caries (Primary Dx); Fractured dental zoroastrian with loss of material from Last 3 Months Social History Tobacco [...] Sign Reading Time Taken Comments Blood Pressure 130/80 09/24/2025 8:38 AM EST Pulse 66 05/31/2025 2:50 PM EDT Temperature - - Respiratory Rate - - Oxygen Saturation - - Inhaled Oxygen Concentration - - Weight - - Height - - Body Mass Index - - Plan of Treatment Upcoming Encounters Date Type Department Care Team (Late st Contact Info) Description 10/20/2025 3:00 PM EST Office Visit [facility]ULT [facility] [address] [place] [address] Luis Miguel Islas, DMD [address] [place] [address] Health Maintenance Due Date Last Done Comments [...] Dental Prophylaxis 12/02/2025 05/31/2025, 08/10/2024 Tobacco Screening 09/24/2026 09/24/2025 Dental X-Ray: Full Mouth 08/11/2027 08/10/2024 RSV [...] PRESENTATION, DETAILED AND EXTENSIVE TREATMENT PLANNING Routine 09/24/2025 8:30 AM EST Full coverage crown needed for root canal-treated tooth 5 CROWN PREP Routine 09/24/2025 8:30 AM EST Full coverage crown needed for root canal-treated tooth 5 PREFABRICATED POST AND CORE IN ADDITION TO CROWN Routine 09/24/2025 8:30 AM EST Full coverage crown needed for root canal-treated tooth CASE PRESENTATION, DETAILED AND EXTENSIVE TREATMENT PLANNING Routine 09/13/2025 3:30 PM EST 5 RETREATMENT OF PREVIOUS ROOT CANAL THERAPY - PREMOLAR Routine 09/13/2025 3:30 PM EST LIMITED ORAL EVALUATION - PROBLEM FOCUSED Routine 08/23/2025 3:00 PM EST CASE PRESENTATION, DETAILED AND EXTENSIVE TREATMENT PLANNING Routine 08/03/2025 1:15 PM EDT Loss of retention of dental crown INTRAORAL - PERIAPICAL FIRST RADIOGRAPHIC IMAGE Routine 08/03/2025 1:15 PM EDT Loss of retention of dental crown LIMITED ORAL EVALUATION - PROBLEM FOCUSED Routine 08/03/2025 1:15 PM EDT Loss of retention of dental crown CASE PRESENTATION, DETAILED AND EXTENSIVE TREATMENT PLANNING Routine 07/13/2025 2:00 PM EDT Dental caries Fractured dental zoroastrian with loss of material 28 B RESIN-BASED COMPOSITE - 1 SURF, POSTERIOR Routine 07/13/2025 2:00 PM EDT Dental caries Fractured dental zoroastrian with loss of material 7 DL RESIN-BASED COMPOSITE - 2 SURF, ANTERIOR Routine 07/13/2025 2:00 PM EDT Dental caries 6 DL RESIN-BASED COMPOSITE - 2 SURF, ANTERIOR Routine 07/13/2025 2:00 PM EDT Dental caries PROPHYLAXIS - ADULT Routine 05/31/2025 3 :00 PM EDT PERIODIC ORAL EVALUATION - ESTABLISHED PATIENT Routine 05/31/2025 3:00 PM EDT INTRAORAL - COMPLETE SERIES OF RADIOGRAPHIC IMAGES Routine 08/10/2024 11:00 AM EDT Dental calculus Dental caries from Last 3 Months or Most Recently Relevant to Health Maintenance Insurance [facility] MEDICAID STAND ADULT
[2025-10-07 10:23] LABS: Hematocrit 39.9 % (37.0-47.0); Hemoglobin 13.1 g/dl (12.0-16.0); Imm Gran Abs Auto 0.02 X10*3/uL (0.00-0.03); Imm Gran Pct Auto 0.3 % (0.0-0.4); Lymphocytes Absolute Auto 2.6 X10*3/uL (1.2-4.9); Mean Corpuscular HGB Conc 32.8 g/dl (31.0-35.0); Mean Corpuscular Hemoglobin 25.9 pg (27.0-33.0); Mean Corpuscular Volume 78.9 fL (80.0-98.0); NRBC Abs Auto 0.000 X10*3/uL (0.0-0.012); NRBC Pct Auto 0.0 /100WBC (0.0-0.2); Platelet Count 286 X10*3/uL (160-400); Red Blood Count 5.06 X10*6/uL (4.20-5.50); White Blood Count 6.7 X10*3/uL (4.8-10.8)
[2025-10-07 11:43] LABS: Alanine Aminotransferase 22 U/L (0-31); Albumin Level 4.3 g/dL (3.5-5.0); Alkaline Phosphatase 80 U/L (39-117); Anion Gap 12 (12-20); Aspartate Amino Transferase 27 U/L (5-31); Blood Urea Nitrogen 18 mg/dL (9-16); Calcium 9.6 mg/dL (8.4-10.2); Carbon Dioxide 32 mmol/L (22-29); Chloride 102 mmol/L (96-108); Cholesterol 238 mg/dL (<200); Estimated Glomerular Filt Rate > 60; Ferritin 86 ng/mL (10-250); Free T4 (Free Thyroxine) 1.13 ng/dL (0.71-1.85); HDL Cholesterol 39 mg/dL (>40); Iron 67 mcg/dL (30-160); Percent Iron Saturation 25 % (15-50); Potassium 4.1 mmol/L (3.3-5.1); Sodium 142 mmol/L (135-145); Thyroid Stimulating Hormone 1.67 uIU/mL (0.32-4.0); Total Iron Binding Capacity 271 mcg/dL (228-428); Total Protein 7.5 g/dL (6.5-8.0); Triglycerides 153 mg/dL (<150); Unsaturated Iron Binding 204 ug/dL
== END 2025-10-07 09:05 | disposition home or self-care (01) ==
LOC: HO.LAB 09:04
PROVIDERS: PCP Internal Medicine; Visit Provider Internal Medicine
DX: R73.02 Impaired glucose tolerance (oral) (principal); E78.00 Pure hypercholesterolemia, unspecified; I10 Essential (primary) hypertension; E04.1 Nontoxic single thyroid nodule; E66.9 Obesity, unspecified; F33.9 Major depressive disorder, recurrent, unspecified; K21.9 Gastro-esophageal reflux disease without esophagitis
CPT/HCPCS: 36415; 80053; 80061; 82728; 83036; 83540; 84439; 84443; 85025; 99212

== ENCOUNTER 2025-10-07 15:09 | Outpatient (AMB) | payer OTHER, SELFPAY ==
[2025-10-07 15:19] VITALS: BP 122/76; PULSE 65; RESP 18; O2SAT 97; BMI 31.9
--- NOTE | 2025-10-07 15:19 | A.OFFPC_ITS ---
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 Accompanied by: Self / Same As Patient Allergies lisinopril Adverse Reaction (Intermediate, Verified 10/07/25 15:22) Nausea Medication List - Last Reconciled 10/07/25 by Cindi Torres MD blood pressure monitor (Blood Pressure Kit) As directed cholecalciferol (vitamin D3) 50 mcg PO DAILY 90 days clotrimazole 1% 1 appl topical BID 4 weeks fexofenadine (Liana Allergy) 180 mg PO DAILY fluticasone propionate 50 mcg/actuation (Flonase Allergy Relief) 2 sprays intranasal DAILY hydrochlorothiazide 25 mg PO DAILY losartan 25 mg PO DAILY meclizine 25 mg PO TID PRN ondansetron HCl 4 mg PO Q8H PRN sertraline 50 mg PO DAILY 90 days simvastatin 10 mg PO BEDTIME Tobacco use date assessed: 10/07/25 Last assessed Fall Risk: 10/07/25 Dental Screening Dental Screen Date: 10/07/25 Did you have a dental visit in the last 12 months?: Yes Did you have a dental problem in the last 6 months where you did not have access to dental care?: No Was dental information given to patient?: Patient has dentist HPI HPI Comments History of Present Illness Details History of Present Illness The patient is a 65 year old female presenting for a follow-up visit for management of multiple chronic conditions, review of recent laboratory and imaging results, and medication refills. Her past medical history is significant for obesity, GERD, hypertension, hypercholesterolemia, overactive bladder, impaired glucose tolerance, and recurrent major depression. She also has a history of a tubular adenoma of the colon, with her last colonoscopy performed in August 2022. Regarding her hypercholesterolemia, recent laboratory results show that her cholesterol is higher than before, with an LDL of 169 mg/dL, which is above the goal of less than 130 mg/dL. She reports that she ran out of her simvastatin prescription about a week ago and has not been taking it. Her impaired glucose tolerance is stable, with a recent Hemoglobin A1c of 5.8%. Recent blood work shows a normal blood count but microcytic indices, though she is not anemic. Her electrolytes, renal function, and liver numbers are all within normal limits. For her hypertension, she is managed on hydrochlorothiazide 25 mg and losartan 25 mg once daily. She is currently treated for depression with a low dose of sertraline, which she finds helpful. A thyroid nodule in the right lobe was previously identified on an ultrasound one year ago, measuring 1 cm. A recent follow-up ultrasound showed the nodule remains stable at 1 cm. The patient has never seen an supervisor erection shop for her thyroid condition. For health maintenance, she is due for a mammogram and has an appointment scheduled in October. She reports being up to date with her flu and shingles vaccinations. Health Maintenance The patient will proceed with her scheduled mammogram in October. She is up-to-date on her flu and shingles vaccines. She was encouraged to consider the COVID-19 vaccine. The importance of diet and exercise was reviewed. Social History - Family and Social Support: The patient notes having a big family and mentions attending a family reunion on her 's side. - Stressors: She reports feeling worried and stressed about her [id number], who is very sick. - Diet: She acknowledges recent overeati ng. Results - Laboratory Studies: - Complete blood count: Normal count, mi crocytic indices, not anemic. - Comprehensive Metabolic Panel: Electro lytes are good, renal function is good, blood sugar is 106 mg/dL, and liver function tests are fine. - Hemoglobin A1c: 5.8%. - Lipid Panel: Cholesterol is high, with an LDL of 169 mg/dL. - Imaging: - Thyroid Ultrasound: Showed a stable 1 cm nodule in the right lobe, unchanged from one year prior. [facility] Medical History Enlarged thyroid Colon cancer screening Annual physical exam Seasonal allergies Overactive bladder Hypercholesterolemia Hypertension GERD (gastroesophageal reflux disease) Incisional hernia Vitamin D deficiency Obesity (BMI 30-39.9) Left adnexal tenderness COVID-19 Corneal transplant infection of left eye HTN (hypertension) Surgical History History of salpingoophorectomy History of corneal transplant History of tubal ligation Previous section Family History Father Myocardial infarction Hypertension CVD (cardiovascular disease) Mother S/P CABG x 1 Diabetes Hypertension CVD (cardiovascular disease) Sister CVD (cerebrovascular disease) Brother Stroke Brain cancer Social History Housing: Apartment Alcohol intake: never Patient Tobacco Use Status: Never used Tobacco Tobacco use type: Cigarette e-Cigarette/Vaping Use: Never Used Second Hand Smoke Exposure: No service: No Current occupational status: employed 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 Cognitive needs: No Hearing needs: No Vision needs: Yes (Glasses) Questionnaire Thrive Questionnaire Date Thrive assessed: 10/07/25 I am a: Patient What is your living situation today?: I have a steady place to live Within the past 12 months, did the food you bought not last and you didn't have the money to get more?: Sometimes True Within the past 12 months, did you worry whether your food would run out before you got money to buy more?: Sometimes True Do you have trouble paying for medicines?: I choose not to answer this question Do you have trouble getting transportation to medical appointments?: No Do you have trouble paying your heating and electricity bill?: I choose not to answer this question Do you have trouble taking care of your child, family member or friend?: I choose not to answer this question Do you have trouble with day-to-day activities such as bathing, preparing meals, shopping, managing finances, etc.?: I choose not to answer this question Are you currently unemployed and looking for a job?: I choose not to answer this question Are you interested in more education?: No Currently or been in a relationship where the following occur: I choose not to answer THRIVE Score: 2 HALEIGH-7 AMB Questionnaire HALEIGH-7 Date HALEIGH - 7 assessed: 01/04/25 Feeling afraid as if something awful might happen: 0 = Not at all Source: Developed by Drs. Gabriel Estevez, Esthela Ritter, Wali Mayorga and colleagues, with an educational [place] from [employer]. Review of Systems Narrative Review of Systems - Psychological: Reports feeling worried and stressed. - Cardiovascular: Denies peripheral edema. Physical exam (Primary Care) Vital Signs: Last Vital Signs Pulse 65 10/07/25 15:19 Resp 18 10/07/25 15:19 BP 122/76 10/07/25 15:19 Pulse Ox 97 10/07/25 15:19 Oxygen Delivery Method Room Air 10/07/25 15:19 BMI result Body Mass Index 31.9 Tobacco/Smoking Status: Tobacco use Status Tobacco use date assessed 10/07/25 10/07/25 15:26 Patient Tobacco Use Status Never used Tobacco 10/07/25 15:26 Tobacco use type Cigarette 10/07/25 15:26 e-Cigarette/Vaping Use Never Used 10/07/25 15:26 Thrive Assessment: Date of Thrive Assessment Date Thrive assessed 10/07/25 10/07/25 15:26 Currently or been in a relationship where the following occur: I choose not to answer Narrative Physical Exam - Vitals: Blood pressure noted to be good. - Extremities: No edema in the legs. Const General: alert; No acute distress Eyes Conjunctivae: conjunctivae normal Resp Auscultation: clear to auscultation bilaterally Cardio Rate: regular rate Rhythm: regular rhythm GI Inspection: Yes normal to inspection Extrem General: Yes normal to inspection and No edema Coding Level of Care Code Est Pt Level 4 (41042) Add On Problem Visit Only Diagnoses Essential hypertension I10 Hypercholesterolemia E78.00 Impaired glucose tolerance R73.02 Right thyroid nodule E04.1 Obesity (BMI 30-39.9) E66.9 Recurrent major depression F33.9 Gastroesophageal reflux disease without esophagitis K21.9 Esophagitis presence: without esophagitis Assessment & Plan Assessment & Plan (1) Hypertension: Code(s): I10 - Essential (primary) hypertension Category: Medical Plan: Continue with blood pressure medication. Decrease salt intake and exercise patient is on hydrochlorothiazide 25 mg once a day losartan 25 mg once a day (2) Hypercholesterolemia: Code(s): E78.00 - Pure hypercholesterolemia, unspecified Category: Medical Plan: Avoid fried foods, chicken skin, eggs, butter margarine, pastries and meat. Be it pork or beef they have a lot of cholesterol LDL goal of less than 130 and triglyceride of less than 150 (3) Impaired glucose tolerance: Code(s): R73.02 - Impaired glucose tolerance (oral) Category: Medical Plan: Decrease the amount of carbohydrate intake, pasta, bread, rice and potatoes are all sugar and that is aside from all the sweet stuff, remember that fruits are good but they are Sweet also. (4) Right thyroid nodule: Comment: September 2023 1.1 cm TR4 right thyroid nodule. Recommend followup ultrasound in 01 November 2024 follow-up in 1 year months. Code(s): E04.1 - Nontoxic single thyroid nodule Category: Medical Plan: Discussed with the patient regarding the thyroid ultrasound. < 1.5 cm and advside to retest US in 2026 (5) Obesity (BMI 30-39.9): Code(s): E66.9 - Obesity, unspecified Category: Medical Plan: Diet and exercise (6) Recurrent major depression: Comment: [facility] Code(s): F33.9 - Major depressive disorder, recurrent, unspecified Category: Medical Plan: Continue with sertraline (7) GERD (gastroesophageal reflux disease): Code(s): K21.9 - Gastro-esophageal reflux disease without esophagitis Category: Medical Qualifiers: Esophagitis presence: without esophagitis Qualified Code(s): K21.9 - Gastro-esophageal reflux disease without esophagitis Plan: Avoid the foods that causes that usually spicy foods, tomato products, juices, coffee, soda and foods that your sensitive to. After eating do not lie down, allow 3-4 hours before in lie down. And keep the head of bed above 30 degrees to avoid the acid from going up. Plan Plan Patient was informed and verbally consented to the use of an ambient scribe for clinic note documentation during this visit. 1. Hypercholesterolemia The patient's recent LDL cholesterol is elevated at 169 mg/dL, which is above the goal of <130 mg/dL. This is attributed to non-adherence, as she ran out of her simvastatin about a week prior to the visit. She agreed to restart simvastatin at the current dose. A new prescription for simvastatin will be sent to the pharmacy, and the importance of adherence was emphasized. A follow-up lipid panel will be checked in three months. 2. Hypertension The patient's blood pressure is well-controlled in the office. She will continue her current regimen of hydrochlorothiazide 25 mg and losartan 25 mg daily. A new one-year prescription for losartan has been sent to her pharmacy. 3. Impaired Glucose Tolerance The patient's Hemoglobin A1c is stable at 5.8%, which falls in the prediabetic range. Pharmacologic treatment is not indicated at this time. Management will continue to focus on diet and exercise. Her A1c will be rechecked in three months. 4. Thyroid Nodule A recent thyroid ultrasound demonstrated that the 1 cm nodule in the right lobe is stable in size compared to the previous year's imaging. As the nodule is stable and measures less than 1.5 cm, a biopsy is not required. The plan is to repeat the ultrasound for surveillance in two years (2026). 5. Recurrent Major Depression The patient reports that her current low-dose sertraline is helping with her anxiety and she wishes to continue it. The plan is to continue sertraline at the current dosage. Discussion Notes I reviewed the patient's recent lab results with her. I explained that her A1c remains at 5.8%, which is in the prediabetic range, and that while we do not need to start medication, dietary adjustments are important. I also informed her that her LDL cholesterol has increased to 169 mg/dL, which is above our goal. We discussed that she had recently run out of her simvastatin, and I emphasized the importance of taking this medication regularly. I will send a new prescription for simvastatin at the current dose as she requested. We reviewed her recent thyroid ultrasound, and I reassured her that the 1 cm nodule is stable in size compared to last year's scan. I explained that because it is stable and less than 1.5 cm, no biopsy is needed at this time, and we will plan for a repeat ultrasound in two years. We also discussed her medications for hypertension and anxiety, and agreed to continue the current regimens. I provided a year-long supply of her losartan. We agreed on a plan to recheck her cholesterol and A1c in three months. I reminded her to attend her scheduled mammogram in October. We discussed preventive measures for the current flu season. Patient Instructions - Your bad cholesterol (LDL) is high at 169. It is very important that you take your cholesterol medication, simvastatin, every day. I have sent a new prescription to your pharmacy. - Your blood pressure is good. Please continue taking your losartan and hydrochlorothiazide as prescribed. I have sent a new prescription for your losartan. - Your blood sugar (A1c) is slightly high, which is called prediabetes. We will continue to watch this with diet and exercise. No new medication is needed now. - We will recheck your blood sugar and cholesterol with a blood test in three months. - The small bump (nodule) on your thyroid has not grown in the last year, which is great news. We will check it again with another ultrasound in about two years (in 2026). - Continue taking sertraline for your mood as it seems to be helping. - Please remember to go to your mammogram appointment scheduled for October. - You are up to date on your flu and shingles shots. Please also consider getting a COVID-19 vaccine. - Be careful during this flu season to avoid getting sick. - Please let us know if you have any questions. Orders: Orders Comprehensive Met. Panel 3 Months R73.02 - Impaired glucose tolerance (oral) Ferritin 3 Months R73.02 - Impaired glucose tolerance (oral) Hemoglobin A1c 3 Months R73.02 - Impaired glucose tolerance (oral) Lipid Panel 3 Months E78.00 - Pure hypercholesterolemia, unspecified, R73.02 - Impaired glucose tolerance (oral) Complete Blood Count Auto Diff 3 Months R73.02 - Impaired glucose tolerance (oral) IRON PROFILE 3 Months R73.02 - Impaired glucose tolerance (oral) Reticulocyte Count 3 Months R73.02 - Impaired glucose tolerance (oral) Medications: Refilled simvastatin 10 mg PO BEDTIME 90 tabs 3RF E78.00 - Pure hypercholesterolemia, unspecified losartan 25 mg PO DAILY 90 tabs 3RF I10 - Essential (primary) hypertension
--- OUTSIDE RECORDS SUMMARY | 2025-10-07 19:11 | XMS_ITS | Clinical Summary ---
Author Organization [employer] Address [address] [facility] [address] [place] [address] Care Team Providers Care Manual Qa Tester Name Role Phone Unavailable Primary Care Provider [...] Description 09/24/2025 8:30 AM EST Office Visit [facility] [address] [place] [address] Luis Miguel Islas DMD Full coverage crown needed for root canal-treated tooth (Primary Dx) 09/13/2025 3:30 PM EST Office Visit [facility] [address] [place] [address] Edenilson Romero, DDS Dental abscess (Primary Dx) 08/23/2025 3:00 PM EST Office Visit [facility] [address] [place] [address] Edenilson Romero, DDS Dental calculus (Primary Dx) 08/03/2025 1:15 PM EDT Office Visit [facility] [address] [place] [address] Luis Miguel Islas DMD Loss of retention of dental crown (Primary Dx) 07/13/2025 2:00 PM EDT Office Visit [facility] [address] [place] [address] Luis Miguel Islas DMD Dental caries (Primary Dx); Fractured dental yarsanism with loss of material from Last 3 [...] Description 10/20/2025 3:00 PM EST Office Visit [facility] [address] [place] [address] Luis Miguel Islas, DMD [address] [place] [address] Health Maintenance Due Date Last Done Comments [...] 2:00 PM EDT Dental caries Fractured dental yarsanism with loss of material 28 B RESIN-BASED COMPOSITE - 1 SURF, POSTERIOR Routine 07/13/2025 2:00 PM EDT Dental caries Fractured dental yarsanism with loss of material 7 DL RESIN-BASED [...] Most Recently Relevant to Health Maintenance Insurance [facility] MEDICAID STAND ADULT
== END 2025-10-07 16:18 | disposition home or self-care (01) ==
LOC: HO.HMCH 15:10
PROVIDERS: PCP Internal Medicine; Visit Provider Internal Medicine
DX: I10 Essential (primary) hypertension (principal); E78.00 Pure hypercholesterolemia, unspecified; E66.9 Obesity, unspecified; Z68.31 Body mass index [BMI] 31.0-31.9, adult; R73.02 Impaired glucose tolerance (oral); E04.1 Nontoxic single thyroid nodule; F33.9 Major depressive disorder, recurrent, unspecified; K21.9 Gastro-esophageal reflux disease without esophagitis